=== PATIENT | male | born 1955 | race Caucasian/White ===

== ENCOUNTER → 2017-08-21 16:21 | Outpatient (CLI) | payer BC, SELFPAY ==
[2017-08-21 18:09] LABS: AST(SGOT) 25 U/L (15-37); Alanine Aminotransfer ALT/SGPT 45 U/L (16-61); Cholesterol 164 mg/dL (200); High Density Lipoprotein 42 mg/dL; Triglycerides 167 mg/dL; Very Low Density Lipoprotein 33 mg/dL (5-40)
== END ==
PROVIDERS: Family Provider Family Medicine; PCP Family Medicine; Visit Provider Family Medicine
DX: Z00.00 Encounter for general adult medical examination without abnormal findings (principal); E78.5 Hyperlipidemia, unspecified
CPT/HCPCS: 36415; 80061; 84153; 84450; 84460; G0103

== ENCOUNTER 2017-08-27 08:47 | Observation (INO) | payer BC, SELFPAY ==
[2017-08-27] VITALS (11 sets, daily range): BP systolic 127–191; BP diastolic 62–91; PULSE 45–56; RESP 12–19; TEMP 36.5–37.1; O2SAT 97–100; BMI 27.8; BMI 27.5
--- NOTE | 2017-08-27 08:52 | CT_ITS ---
STUDY: CTA CHEST REASON FOR EXAM: Male, 62 years old. 2 day history of shortness of breath and chest pain. Nausea. History of recent long distance travel. RADIATION DOSAGE (If Supplied By Facility): CTDIvol = ( 18.16 ) mGy, DLP = ( 579.07 ) mGycm TECHNIQUE: The examination was performed with the intravenous administration of 100 ml of Isovue 370 contrast material. Post-processing of the angiographic images was performed, with multiplanar reformation and 3D reconstruction. Individualized dose optimization techniques were used for this CT. COMPARISON: Comparison is made with prior chest radiograph done earlier in the day. FINDINGS: Normal enhancement of the main pulmonary artery and right and left pulmonary arteries. Normal enhancement of the bilateral peripheral pulmonary arteries. There is no demonstrated pulmonary embolism. Normal thoracic aorta and visualized great vessels. There is no demonstrated aortic dissection. Normal heart and pericardium. Normal mediastinum. Normal hilar regions. Normal visualized trachea and bronchi. The lungs are well expanded. Minimal degree of linear scarring in the posterior aspect of the left upper lobe. Normal pleura. Normal chest wall structures. There are degenerative changes of thoracic spine. Fatty infiltration of the liver. Small hiatal hernia. CT/CTA Chest W/WO Contrast IMPRESSION: Normal CTA chest examination, without a demonstrated pulmonary embolism or arterial dissection. Electronically Signed: Avelino Anna MD at 10:44 EDT Tel [phone], Service support ,
--- NOTE | 2017-08-27 08:53 | EKG12_ITS ---
Test Reason : CP Blood Pressure : / mmHG Vent. Rate : 052 BPM Atrial Rate : 052 BPM P-R Int : 176 ms QRS Dur : 120 ms QT Int : 418 ms P-R-T Axes : 019 -49 021 degrees QTc Int : 388 ms Sinus bradycardia Left anterior fascicular block Abnormal ECG Confirmed by YANA SMYTH, EDGAR ([id number]), managing editor CHACE DEL REAL ([id number] on 08/28/2017 12:59:13 PM Referred By: Noreen Katz Confirmed By:EDGAR MILLAN MD
--- NOTE | 2017-08-27 08:54 | ED.VISSUMM ---
- ER Visit Summary Date of Service: 08/27/17 Chief Complaint: Chest pain, lightheadedness History of Present Illness: The patient is a 62 M presents to the emergency department with 2 days of intermittent chest pain. Patient states he was in his normal state of health. He states that she woke from sleep with pain in the central chest that radiated to the right side. It seem to be worse when he would move. He cannot re-create the pain any other way. He states he has been having it intermittently and it will come on and last a few hours. It does not radiate to his neck or to his arm. Patient does have a history of prior DVT in his leg 2 years ago. He was on anticoagulants, but only for 3 months. He has not been taking them since. He does have a history of hypercholesterolemia and prior smoking. He denies any history of coronary vascular disease. He does admit to recent travel to [place], but denies any leg swelling. He denies any cough but has had some mild dyspnea. He denies any fevers or chills. Physical Examination: Vital signs reviewed General: Well-nourished, well-developed Head: Normocephalic, atraumatic Eyes: Pupils equal and reactive, extraocular muscles intact Neck, supple, no lymphadenopathy Heart: Regular rate and rhythm Respiratory: No distress, clear bilaterally Abdomen: Soft, nontender, nondistended, no peritoneal signs Back: Nontender Extremities: Nontender, no edema, no cords Skin: Normal color no rash Neuro: Alert and oriented, no focal or lateralizing deficits Test Results: [] Emergency Department Course and Treatment: The patient presents to the emergency department with substernal chest pain that radiates to the right side of his chest. It was not made worse with exertion but did have some components that were worsened with motion. He does have history of prior DVT and recent travel. Initial EKG does not show any acute ischemic change. Patient had no recurrence of pain while here. He was given aspirin. He was initially hypertensive with systolic of 210 on arrival, but even without intervention, his repeat blood pressure was down to the 160s. I did obtain a CTA of his chest given history which does not show any evidence of pulmonary embolus or aortic dissection. His cardiac enzymes are normal. Given the patient's age and cardiac sclerotic factors, I do feel that he would benefit from admission for cardiac rule out. Patient was discussed with the hospitalist will be admitted at this time. Treatment Plan: [] Disposition: Admission Impression: 1. Chest pain This note was generated with [employer] dictation software. It may contain incorrect words, spelling, and punctuation that were not noted in review of the chart prior to signing ED Disposition - Plan for ED Patient: Chief Complaint: Chest Pain Referrals: Noreen Katz MD [Primary Care Provider] -
--- NOTE | 2017-08-27 08:59 | RAD_ITS ---
STUDY: X-RAY CHEST REASON FOR EXAM: Male, 62 years old. 2 day history of chest pain with nausea and dizziness. TECHNIQUE: Single AP portable view of the chest. COMPARISON: None. FINDINGS: EKG electrodes are seen. The lungs are clear and expanded. There is no demonstrated pleural abnormality. Normal size heart. Normal mediastinum and tutu. Normal visualized pulmonary arteries. Normal visualized aortic arch and descending thoracic aorta. There are diffuse degenerative changes of the visualized thoracic spine. Normal visualized ribs, clavicles, and shoulders. There is no demonstrated abnormality of the visualized soft tissue structures of the upper abdomen. RAD/Chest 1 View (Portable) IMPRESSION: No acute abnormality is seen. Electronically Signed: Avelino Anna MD at 9:33 EDT Tel [phone], Service support ,
[2017-08-27 09:15] LABS: Absolute Lymphocyte Count 1.72 X10^3/ul (0.83-4.51); Absolute Neutrophil Count 2.9 X10^3/uL (2.0-7.7); Basophil# 0.02 X10^3/uL; Basophil% 0.4 % (0-1); Eosinophil# 0.12 X10^3/uL; Eosinophils% 2.4 % (0-5); Hematocrit 41.6 % (40-54); Hemoglobin 14.3 g/dl (13.0-16.5); Lymphocyte # 1.72 X10^3/ul (4.0); Lymphocyte % 33.7 % (19-41); Mean Corp Hgb Conc 34.4 g/gl (32-36); Mean Platelet Vol. 10.7 fl (6.2-12.0); Monocyte# 0.31 X10^3/uL; Monocyte% 6.1 % (0-10); Neutrophil # 2.93 X10^3/uL (2.7-7.7); Neutrophil % 57.4 % (47-70); POSITIVE COUNT NO; POSITIVE DIFFERENTIAL NO; POSITIVE MORPHOLOGY NO; Platelet Count 205 K/mm3 (150-450); RBC Distribution Width CV 13.4 % (11.6-14.6); RBC Distribution Width SD 43.8 fl (35.1-43.9); Red Blood Count 4.62 M/mm3 (4.6-6.2); White Blood Count 5.1 K/mm3 (4.4-11.0)
[2017-08-27] MEDS: Aspirin 81 MG TAB.CHEW 324 MG PO (09:19)
[2017-08-27] MEDS: Ondansetron 4 MG/2 ML Vial IV (09:20)
[2017-08-27] MEDS: 0.9% Normal Saline 1,000 ML 150 ML IV (09:32)
[2017-08-27 09:34] LABS: BUN 14 mg/dL (7-18); Creatinine, Serum 0.94 mg/dL (0.70-1.30); Estimated Creatinine Clearance 77.82 ml/min; Glucose 108 mg/dL (74-106)
[2017-08-27 09:35] LABS: Anion Gap 7 (5-15); BUN/Creat Ratio 14.9 RATIO (10-20); Calcium,Total 8.8 mg/dL (8.5-10.1); Chloride 107 mmol/L (98-107); EST Glomerular Filtration Rate 86 mL/min (>60); Est Glom Filt Rate - Afr Amer 105 mL/min (>60); Potassium 4.1 mmol/L (3.5-5.1); Sodium Level 139 mmol/L (136-145)
--- NOTE | 2017-08-27 11:11 | NURSING ---
Geetha notified patient may transfer to PCU.
--- NOTE | 2017-08-27 11:49 | EKG12_ITS ---
Test Reason : CP Blood Pressure : / mmHG Vent. Rate : 045 BPM Atrial Rate : 045 BPM P-R Int : 180 ms QRS Dur : 118 ms QT Int : 452 ms P-R-T Axes : 022 -47 012 degrees QTc Int : 390 ms Sinus bradycardia Left anterior fascicular block Abnormal ECG Confirmed by JFEF SMYTH, KATEY ([id number]), video effects editor CHACE DEL REAL ([id number]) on 09/04/2017 1:52:12 PM Referred By: Noreen Katz Confirmed By:KATEY AGUILAR MD
--- NOTE | 2017-08-27 11:51 | ECHOD_ITS ---
Reason For Study: CHEST PAIN Procedure This was a 2D Doppler, Color Flow transthoracic echocardiogram. Exam performed portable in patient room. Left Ventricle Normal size and thickness. The estimated ejection fraction is 65 %. Stage 1 diastolic dysfunction. No regional wall motion abnormalities noted. Right Ventricle Normal size and thickness. Normal systolic function. Atria Normal left atrium. Normal right atrium. Normal atrial septum. Bubble contrast study negative for right to left interatrial shunt. Mitral Valve The mitral valve is structurally normal. No prolapse or stenosis seen. Tricuspid Valve Normal tricuspid valve. Trivial tricuspid valve insufficiency. Right ventricular systolic pressure estimated to be 38 mmHg. Mild pulmonary hypertension. Aortic Valve Trisinus/trileaflet aortic valve. Normal aortic valve. Pulmonic Valve Normal pulmonic valve. Great Vessels Normal aortic root. Normal arch. Normal inferior vena cava. Inferior vena cava collapse with sniff. Pericardium/Pleural No pericardial effusion. Medication Performed a rapid injection of agitated mix of 9 cc saline and 1cc air to assess for atrial septal defect. MMode/2D Measurements & Calculations LVIDd: 4.8 cm IVSd: 1.2 cm Ao root diam: 3.4 cm LVIDs: 3.1 cm LVPWd: 1.2 cm LA dimension: 3.6 cm RVDd: 2.6 cm FS: 35.7 % LAV(MOD-bp): 65.3 ml LVAd ap4: 38.4 cm2 SV(MOD-sp4): 91.9 ml LAV(MOD-bp) Indexed: 33.2 ml/m2 EDV(MOD-sp4): 143.6 ml LAV(MOD-sp2): 67.6 ml EDV(sp4-el): 146.9 ml LAV(MOD-sp4): 62.5 ml LVAs ap4: 20.1 cm2 ESV(MOD-sp4): 51.7 ml ESV(sp4-el): 54.2 ml EF(MOD-sp4): 64.0 % EF(sp4-el): 63.1 % SV(sp4-el): 92.7 ml LA A4 area: 21.1 cm2 RA A4 area: 15.7 cm2 Time Measurements MV dec time: 0.22 sec Doppler Measurements & Calculations MV E max juan manuel: 89.4 cm/sec Lat Peak E' Juan Manuel: 12.5 cm/sec Med Peak E' Juan Manuel: 10.7 cm/sec MV A max juan manuel: 91.5 cm/sec E/E' lat: 7.2 E/E' med: 8.4 MV E/A: 0.98 Ao V2 max: 193.0 cm/sec LV V1 max: 123.9 cm/sec PA V2 max: 105.3 cm/sec Ao max P.9 mmHg LV V1 max P.1 mmHg TR max juan manuel: 287.3 cm/sec TR max P.0 mmHg Interpretation Summary The estimated ejection fraction is 65 %. Bubble contrast study negative for right to left interatrial shunt. Trivial tricuspid valve insufficiency. Right ventricular systolic pressure estimated to be 38 mmHg. Mild pulmonary hypertension. Compared to echo report dated 06/19/2014, no appreciable changes noted. Ordering Physician: Reta Branch Referring Physician: Noreen Katz Performed By: Vicky Wolff RDCS
--- NOTE | 2017-08-27 13:58 | HP.PCM_ITS ---
Problem List (1) Macular degeneration Status: Chronic (2) HLD (hyperlipidemia) Status: Chronic (3) Chest pain Status: Acute (4) GERD (gastroesophageal reflux disease) Status: Chronic History of Present Illness Date of Admission: 08/27/17 Chief Complaint: R side chest pain associated with lightheadedness, diaphoresis and nausea. The patient is a 62 year old M with a past medical history of hyperlipidemia, GERD and wet macular degeneration who presented to the Ed at [facility] on 08/27/17 c/o intermittent R side chest pain for the past few days. Prior to that he had occasional CP when out in the yard working and mowing grass. This morning he had chest pain at work and this was associated with lightheadedness, sweating and nausea. He felt as though he was going to pass out and asked a co-worker to help him to the nurse's office. He felt better when he arrived in the ED and laid down. The pain resolved after 2 and 1/2 hours. He recently flew to [facility] and he does have a hx of DVT while driving home from [place] few years ago so a CTA of the chest was done and it was negative for DVT. No recent medication changes. EKG in the ED showed SB with LAD. Vital signs at arrival to the emergency room were temperature 97.7, pulse rate 94, blood pressure 190/ 91, respiratory rate 18 and his oxygen saturation was 99%. CBC and BMP were unremarkable and the troponin was less than 0.015. He was given aspirin 324 mg in the emergency room and transferred to a monitored bed on PCU. He has had a stress in the past in 2012 and it was negative. There is no FH of CAD. He denies a hx of HTN. Past Medical History Past Medical History (Chronic Problems): Chronic Problems Macular degeneration (Chronic) HLD (hyperlipidemia) (Chronic) GERD (gastroesophageal reflux disease) (Chronic) Allergies shellfish derived Allergy (Verified 08/27/17 08:49) Other Home Medications: Ambulatory Orders Medication Instructions Recorded Multivitamins,Ther W-Minerals 1 tablet PO DAILY 06/21/13 [Multivitamin With Minerals] Rosuvastatin Calcium [Crestor] 5 mg PO DAILY 06/21/13 Surgical History: noncontributory Psychiatric History: No pertinent psych hx Lives: Spouse/ Significant Other Smoking Status: Former smoker - he quit over 40 years ago....he smoked a little as a teenager Alcohol: Occasional Drugs: None - *Family History Paternal History Items: Cancer - His father had lung cancer associated with his occupation, he was a non-smoker Maternal History Items: - - Mother had no significant medical history Review of Systems Constitutional: Denies: Chills, Fever, Weight Change Eyes: Reports: Vision Change HEENT: Denies: Head Aches, Sinus Congestion, Sinus Drainage Cardiovascular: Reports: Chest Pain, Light Headedness. Denies: Claudication, Edema, Orthopnea, Palpitations, Paroxysmal Noc. Dyspnea, Syncope Respiratory: Denies: Cough, Shortness of breath at rest, Sputum production Gastrointestinal: Denies: Abdominal Pain, Nausea, Vomiting Genitourinary: Denies: Dysuria Musculoskeletal: Denies: Joint Pain, Joint Tenderness Skin: Denies: Rash, Wounds Neurological: Denies: Numbness, Tingling, Focal weakness Psychiatric: Denies: Anxiety, Depression, Homicidal Ideations, Suicidal Ideations Endocrine: Denies: Change in Body Habitus Hematologic/ Lymphatic: Reports: Hx of blood clot - from a long car trip from [facility] to [place] VTE Information - Inpt Only VTE Present on Admission: No VTE Mechan Device Prophylaxis: Knee High HELEN Hose VTE Pharm Prophylaxis ordered?: Yes Patient Problems: Active and Suspected Problems Chest pain (Acute) Subjective: General: alert, oriented X3, cooperative, NAD HEENT: Atraumatic, normocephalic, PERRL, EOMI Oral: Dry mucosa. no mucosal lesions, unremarkable denitition Neck: No carotid bruits, carotids have brisk upstroke and good pulse volume, no JVD, no nodes, trachea midline, no nuchal rigidity Lungs: symmetric chest expansion, CTA, no rhonchi, no wheezes, no rales, not tachypneic, no conversational dyspnea, no accessory muscle use Heart: regular rhythm, bradycardic rate, normal S1S2, no ectopic activity, no MM, no gallop, no rub Abdomen: soft, NT, ND, normal BS's, no masses, no guarding with palpation Skin: no rashes, no breakdown Musculoskeletal: no muscle wasting, good strength throughout Neurologic: CN's II-XII grossly intake, no focal neurologic deficits Psych: appropriate, pleasant, normal affect - Physical Exam Vital Signs Temp Pulse Resp BP Pulse Ox 97.8 F 46 L 16 180/74 H 98 08/27/17 12:00 08/27/17 12:35 08/27/17 12:00 08/27/17 12:00 08/27/17 12:00 Oxygen Delivery Method Room Air Weight: 180 lb 15.992 oz Body Mass Index (BMI) 27.5 Laboratory Tests Past 24 Hrs 08/27/17 12:10 Troponin I < 0.015 Assessment/Plan All Active Problems Chest pain (Acute) Impressions 1. atypical chest pain 2. possible HTN - he has no personal hx but BP significantly elevated in the ED 3. Hyperlipidemia 4. Wet macular degeneration 5. Occasional GERD Admit to a monitored bed on PCU ASA 81 mg PO daily SL NTG 0.4 mg PRN chest pain Serial Cardiac Enzymes Stat EKG PRN CP Chest XRAY -no pleural effusions, minor vascular congestion or infiltrates Treadmill nuclear stress test in the AM if the cardiac enzymes are negative DVT prophylaxis ordered Echocardiogram to evaluate for LVH/diastolic dysfunction
[2017-08-27] MEDS: Enoxaparin 40 MG/0.4 ML Syringe SC (14:17)
[2017-08-27] MEDS: Lisinopril 10 MG Tablet PO (14:17)
[2017-08-27 16:40] LABS: Bacteria 0 SEEN /hpf (None Seen); Mucous, Urine 0 SEEN /hpf (<or=2+); Red Blood Cells-Urine 0 SEEN /hpf (0-5); White Blood Cells 0 SEEN /hpf (0-5)
[2017-08-27 16:56] LABS: Color, Urine Yellow (Yellow); Glucose, Dipstick Normal (Normal); Ketone-Dipstick Negative (Negative); Leukocyte Esterase-Dipstick Negative /ul (Negative); Nitrite-Dipstick Negative (Negative); Occult Blood-Urine Negative /ul (Negative); Protein-Dipstick Negative (Negative); Urine Bilirubin Dipstick Negative (Negative); Urine Clarity Clear (Clear); Urine Urobilinogen Normal (Normal); Urine pH 6.5 (5.0 - 8.0)
[2017-08-27 17:06] LABS: Squamous Epithelial Cells - UA 0-5 SEEN /hpf (0-5)
[2017-08-27] MEDS: Atorvastatin Calcium 40 MG Tablet PO (22:53)
[2017-08-27] MEDS: Famotidine 20 MG Tablet PO (22:53)
[2017-08-28] VITALS (7 sets, daily range): BP systolic 122–137; BP diastolic 62–69; PULSE 46–57; RESP 11–18; TEMP 36.4–36.7; O2SAT 96–97
[2017-08-28] MEDS: 0.9% NaCl Peripheral Flush Adult/Peds IV (04:53)
--- NOTE | 2017-08-28 05:00 | EKG12_ITS ---
Test Reason : AM EKG Blood Pressure : / mmHG Vent. Rate : 057 BPM Atrial Rate : 057 BPM P-R Int : 174 ms QRS Dur : 114 ms QT Int : 420 ms P-R-T Axes : 007 -49 017 degrees QTc Int : 408 ms Sinus bradycardia Left anterior fascicular block Abnormal ECG When compared with ECG of 27-AUG-2017 11:48, MANUAL COMPARISON REQUIRED, DATA IS UNCONFIRMED Confirmed by VIRGILIO HATCH ([id number]), managing editor CHACE DEL REAL ([id number]) on 09/01/2017 2:01:42 PM Referred By: DR ROGERS Confirmed By:VIRGILIO HATCH
[2017-08-28] MEDS: Lisinopril 10 MG Tablet PO (05:16)
[2017-08-28] MEDS: Aspirin E.C. 81 MG Tablet PO (05:16)
[2017-08-28 05:31] LABS: Absolute Lymphocyte Count 1.61 X10^3/ul (0.83-4.51); Basophil# 0.03 X10^3/uL; Basophil% 0.5 % (0-1); Eosinophil# 0.29 X10^3/uL; Eosinophils% 4.4 % (0-5); Hematocrit 40.9 % (40-54); Hemoglobin 13.9 g/dl (13.0-16.5); Lymphocyte # 1.61 X10^3/ul (4.0); Lymphocyte % 24.5 % (19-41); Mean Corpuscular Hgb 30.6 pg (27.0-32.0); Mean Corpuscular Volume 90.1 fL (80-94); Mean Platelet Vol. 10.8 fl (6.2-12.0); Monocyte# 0.58 X10^3/uL; Monocyte% 8.8 % (0-10); Neutrophil # 4.04 X10^3/uL (2.7-7.7); Neutrophil % 61.6 % (47-70); Platelet Count 213 K/mm3 (150-450); RBC Distribution Width CV 13.6 % (11.6-14.6); RBC Distribution Width SD 44.7 fl (35.1-43.9); Red Blood Count 4.54 M/mm3 (4.6-6.2); White Blood Count 6.6 K/mm3 (4.4-11.0)
[2017-08-28 05:32] LABS: POSITIVE COUNT NO; POSITIVE DIFFERENTIAL NO
[2017-08-28 05:33] LABS: POSITIVE MORPHOLOGY NO
[2017-08-28 05:44] LABS: Partial Thromboplast Time 26.5 Seconds (24.1-36.2); Prothrombin Time (Protime)PT. 13.3 SECONDS (11.7-14.9)
[2017-08-28 06:03] LABS: Anion Gap 5 (5-15); BUN 13 mg/dL (7-18); BUN/Creat Ratio 13.1 RATIO (10-20); Calcium,Total 8.5 mg/dL (8.5-10.1); Chloride 108 mmol/L (98-107); Cholesterol 156 mg/dL (200); Creatinine, Serum 0.99 mg/dL (0.70-1.30); EST Glomerular Filtration Rate 81 mL/min (>60); Est Glom Filt Rate - Afr Amer 98 mL/min (>60); Estimated Creatinine Clearance 73.89 ml/min; Glucose 95 mg/dL (74-106); High Density Lipoprotein 39 mg/dL; Potassium 3.9 mmol/L (3.5-5.1); Sodium Level 142 mmol/L (136-145); Thyroid Stim Hormone (TSH) 2.27 uIU/mL (0.358-3.74); Triglycerides 163 mg/dL; Very Low Density Lipoprotein 33 mg/dL (5-40)
--- NOTE | 2017-08-28 07:36 | STRESSREP ---
Stress Test Report Exercise myocardial perfusion stress test. 62-year-old man with a history of atypical chest pain. Medications aspirin Lipitor Zestril. Stress protocol: Resting EKG demonstrates normal sinus rhythm with rate of 55 bpm normal intervals and noted resting blood pressure is 150/78 mmHg. The patient exercised according to regular Angel protocol for total duration of 9 minutes and 31 seconds. The maximum heart rate attained was 133 bpm which was 84% of maximum predicted heart rate the maximum workload was 10.9 metabolic equivalents. The patient maintained sinus rhythm throughout the recording. At rest there were no ST or T-wave changes noted suggest ischemia at peak exercise upsloping ST changes only were noted. Occasional premature ventricular complex was noted. No clinical angina was noted the patient experienced occasional sharp chest discomfort. Resting blood pressure is 150/78 with a peak blood pressure 172/82. No clinical angina was noted. Myocardial perfusion protocol. 11.3 mCi of technetium 99m sestamibi was injected. The patient then exercised for 9-1/2 minutes attaining 10.9 minute metabolic equivalents. At peak exercise 33.1 mCi of technetium 99m sestamibi was injected stress images were obtained stress and rest images were reconstructed and compared in the short axis vertical long and horizontal long axis. Gated images were also obtained pre- Perfusion SPECT analysis. Review of the stress images demonstrate normal uptake of tracer noted in all areas of the myocardium. The resting images similarly demonstrate normal uptake of tracer noted in all areas of the myocardium. No areas of reversibility are noted suggest ischemia and no previous infarct is noted. Gated SPECT analysis. The gated ejection fraction is noted to be 62%. Conclusion: Exercise myocardial perfusion stress test with no evidence of ischemia at a high workload. Preserved ejection fraction. No clinical angina noted.
[2017-08-28] MEDS: Famotidine 20 MG Tablet PO (08:33)
[2017-08-28] MEDS: Multivitamins,Ther W-Minerals Tablet 1 TABLET PO (08:33)
--- NOTE | 2017-08-28 10:35 | PCM.DC ---
- Discharge Diagnoses Current Active Problems: Current Active and Chronic Problems Macular degeneration (Chronic) HLD (hyperlipidemia) (Chronic) Chest pain (Acute) GERD (gastroesophageal reflux disease) (Chronic) You will use the following diet at home:: Other - Low-fat/low-cholesterol. Discharge Activity: Return to Normal Activity Call your doctor if you observe: Shortness of breath, Dizziness, Fainting spells, Chest pain Additional Instructions: Your chest pain was not found to be related to your heart. You were started on a medication for your blood pressure called lisinopril which you will take daily. Recommend monitoring your blood pressure daily at home and documenting these findings. Bring blood pressure readings to primary care physician at follow-up appointment. You were also given a prescription for acid reflux to see if this improves your symptoms. Allergies/Adverse Reactions: Allergies shellfish derived Allergy (Verified 08/27/17 08:49) Other Medications to take at Discharge Multivitamins,Ther W-Minerals [Multivitamin With Minerals] 1 tablet PO DAILY 06/21/13 Rosuvastatin Calcium [Crestor] 5 mg PO DAILY 06/21/13 Famotidine [Pepcid] 20 mg PO BID #60 tab 08/28/17 Lisinopril [Zestril] 10 mg PO DAILY #30 tab 08/28/17 The following prescriptions were given: Lisinopril [Zestril] 10 mg PO DAILY #30 tab Famotidine [Pepcid] 20 mg PO BID #60 tab Primary Care Physician: Noreen Katz MD [Primary Care Provider] - Please follow up with your Primary Care Physician in: 1 Week Test Results: Test results from this visit will be discussed in further detail at your follow-up appointment, if applicable. Proposed Discharge Date: 08/28/17
--- NOTE | 2017-08-28 10:39 | DCINST_ITS ---
- Discharge Diagnoses Current Active Problems: Current Active and Chronic Problems Macular degeneration (Chronic) HLD (hyperlipidemia) (Chronic) Chest pain (Acute) GERD (gastroesophageal reflux disease) (Chronic) You will use the following diet at home:: Other - Low-fat/low-cholesterol. Discharge Activity: Return to Normal Activity Call your doctor if you observe: Shortness of breath, Dizziness, Fainting spells , Chest pain Additional Instructions: Your chest pain was not found to be related to your heart. You were started on a medication for your blood pressure called lisinopril which you will take daily. Recommend monitoring your blood pressure daily at home and documenting these findings. Bring blood pressure readings to primary care physician at follow-up appointment. You were also given a prescription for acid reflux to see if this improves your symptoms. Allergies/Adverse Reactions: Allergies shellfish derived Allergy (Verified 08/27/17 08:49) Other Medications to take at Discharge Multivitamins,Ther W-Minerals [Multivitamin With Minerals] 1 tablet PO DAILY Rosuvastatin Calcium [Crestor] 5 mg PO DAILY 06/21/13 Famotidine [Pepcid] 20 mg PO BID #60 tab 08/28/17 Lisinopril [Zestril] 10 mg PO DAILY #30 tab 08/28/17 The following prescriptions were given: Lisinopril [Zestril] 10 mg PO DAILY #30 tab Famotidine [Pepcid] 20 mg PO BID #60 tab Primary Care Physician: Noreen Katz MD [Primary Care Provider] - Please follow up with your Primary Care Physician in: 1 Week Test Results: Test results from this visit will be discussed in further detail at your follow- up appointment, if applicable. Proposed Discharge Date: 08/28/17
--- NOTE | 2017-08-28 10:40 | PCM.DC.SUM ---
Discharge Date and Diagnosis Date of Admission: 08/27/17 Date of Discharge: 08/28/17 - Primary Discharge Diagnosis Active and Suspected Problems 1. Chest pain- ACS ruled out 2. Hypertension - Secondary Discharge Diagnosis Chronic Problems Macular degeneration (Chronic) HLD (hyperlipidemia) (Chronic) GERD (gastroesophageal reflux disease) (Chronic) Hospital Course and Treatment Imaging Results: Diagnostic Data Chest CTA 08/27/17 08:52 IMPRESSION: Normal CTA chest examination, without a demonstrated pulmonary embolism or arterial dissection. Electronically Signed: Avelino Anna MD at 10:44 EDT Tel [phone], Service support , Chest X-Ray 08/27/17 08:59 IMPRESSION: No acute abnormality is seen. Electronically Signed: Avelino Anna MD at 9:33 EDT Tel [phone], Service support , Operations: None Procedures: 2-D Echocardiogram, Stress test Summary of Care Provided: The patient is a 62 year old M admitted 08/27/2017 due to chest pain. He has a past medical history of hyperlipidemia, macular degeneration, GERD. CTA of chest negative for PE and dissection. Troponin negative. Patient underwent nuclear stress test which was negative for ischemia. Lab work unremarkable. Patient denies further chest pain during admission. Blood pressure noted to be elevated. Patient was started on lisinopril 10 mg daily with improvement in blood pressure. Patient does report occasional GERD. He was started on famotidine 20 mg twice daily to assess if this improves his symptoms. Patient recommended to check blood pressure daily at home and document findings which she will report to primary care physician. Echocardiogram completed and all reviewed prior to discharge. Patient is stable for discharge and will follow up with primary care physician in 1 week. Patient seen and examined prior to discharge. Alert, oriented, no acute distress. Denies further chest pain. Denies shortness of breath, palpitations. Heart rate regular rhythm, mild bradycardia. Lungs clear. Abdomen soft, nontender. Neuro grossly intact. Vital signs stable. This patient was seen by RUDY Hancock under the supervision of Dr. Branch. Discharge Diet: Low fat/ Low Cholesterol Discharge Activity: Return to Normal Activity Call your doctor if you observe: Shortness of breath, Dizziness, Fainting spells, Chest pain Home Medications: Medications to take at Discharge Multivitamins,Ther W-Minerals [Multivitamin With Minerals] 1 tablet PO DAILY 06/21/13 Rosuvastatin Calcium [Crestor] 5 mg PO DAILY 06/21/13 Famotidine [Pepcid] 20 mg PO BID #60 tab 08/28/17 Lisinopril [Zestril] 10 mg PO DAILY #30 tab 08/28/17 Following Prescrptions Were Given to Patient: Lisinopril [Zestril] 10 mg PO DAILY #30 tab Famotidine [Pepcid] 20 mg PO BID #60 tab Primary Care Physician: Noreen Katz MD [Primary Care Provider] - Please follow up with your Primary Care Physician in: 1 Week Disposition: Home Minutes spent on discharge:: 35 Patient Condition:: Stable Medical Necessity - Tobacco Use Smoking Status: Former smoker - he quit over 40 years ago....he smoked a little as a teenager Meaningful Use Info Meaningful Use Diagnoses (Choose all that apply): None applicable
--- NOTE | 2017-08-28 10:46 | DS.PCM_ITS ---
Discharge Date and Diagnosis Date of Admission: 08/27/17 Date of Discharge: 08/28/17 - Primary Discharge Diagnosis Active and Suspected Problems 1. Chest pain- ACS ruled out 2. Hypertension - Secondary Discharge Diagnosis Chronic Problems Macular degeneration (Chronic) HLD (hyperlipidemia) (Chronic) GERD (gastroesophageal reflux disease) (Chronic) Hospital Course and Treatment Imaging Results: Diagnostic Data Chest CTA 08/27/17 08:52 IMPRESSION: Normal CTA chest examination, without a demonstrated pulmonary embolism or arterial dissection. Electronically Signed: Avelino Anna MD at 10:44 EDT Tel [phone], Service support , Chest X-Ray 08/27/17 08:59 IMPRESSION: No acute abnormality is seen. Electronically Signed: Avelino Anna MD at 9:33 EDT Tel [phone], Service support , Operations: None Procedures: 2-D Echocardiogram, Stress test Summary of Care Provided: The patient is a 62 year old M admitted 08/27/2017 due to chest pain. He has a past medical history of hyperlipidemia, macular degeneration, GERD. CTA of chest negative for PE and dissection. Troponin negative. Patient underwent nuclear stress test which was negative for ischemia. Lab work unremarkable. Patient denies further chest pain during admission. Blood pressure noted to be elevated. Patient was started on lisinopril 10 mg daily with improvement in blood pressure. Patient does report occasional GERD. He was started on famotidine 20 mg twice daily to assess if this improves his symptoms. Patient recommended to check blood pressure daily at home and document findings which she will report to primary care physician. Echocardiogram completed and all reviewed prior to discharge. Patient is stable for discharge and will follow up with primary care physician in 1 week. Patient seen and examined prior to discharge. Alert, oriented, no acute distress. Denies further chest pain. Denies shortness of breath, palpitations. Heart rate regular rhythm, mild bradycardia. Lungs clear. Abdomen soft, nontender. Neuro grossly intact. Vital signs stable. This patient was seen by RUDY Hancock under the supervision of Dr. Branch. Discharge Diet: Low fat/ Low Cholesterol Discharge Activity: Return to Normal Activity Call your doctor if you observe: Shortness of breath, Dizziness, Fainting spells , Chest pain Home Medications: Medications to take at Discharge Multivitamins,Ther W-Minerals [Multivitamin With Minerals] 1 tablet PO DAILY Rosuvastatin Calcium [Crestor] 5 mg PO DAILY 06/21/13 Famotidine [Pepcid] 20 mg PO BID #60 tab 08/28/17 Lisinopril [Zestril] 10 mg PO DAILY #30 tab 08/28/17 Following Prescrptions Were Given to Patient: Lisinopril [Zestril] 10 mg PO DAILY #30 tab Famotidine [Pepcid] 20 mg PO BID #60 tab Primary Care Physician: Noreen Katz MD [Primary Care Provider] - Please follow up with your Primary Care Physician in: 1 Week Disposition: Home Minutes spent on discharge:: 35 Patient Condition:: Stable Medical Necessity - Tobacco Use Smoking Status: Former smoker - he quit over 40 years ago....he smoked a little as a teenager Meaningful Use Info Meaningful Use Diagnoses (Choose all that apply): None applicable
== END 2017-08-28 13:15 | disposition home or self-care (01) ==
LOC: ED 09:41 → PCU 11:03
PROVIDERS: Admitting Provider Internal Medicine; Emergency Provider Emergency Medicine; Family Provider Family Medicine; PCP Family Medicine; Visit Provider Internal Medicine
DX: R07.89 Other chest pain (principal); R42 Dizziness and giddiness; Z86.718 Personal history of other venous thrombosis and embolism; Z87.891 Personal history of nicotine dependence; E78.5 Hyperlipidemia, unspecified; H35.30 Unspecified macular degeneration; K21.9 Gastro-esophageal reflux disease without esophagitis; R00.1 Bradycardia, unspecified
CPT/HCPCS: 36415; 71045; 71275; 78452; 80048; 80061; 81001; 84443; 84484; 85025; 85610; 85730; 87086; 87088; 93005; 93017; 93306; 96361; 96372; 96374; 99218; 99285; A9500; J7030; Q9967; A4216; G0378; J2405

== ENCOUNTER 2018-03-14 16:24 | Emergency (ER) | payer BC, SELFPAY ==
[2018-03-14 16:25] VITALS: BP 152/93; PULSE 77; RESP 16; TEMP 37.2; O2SAT 99; BMI 29.0
--- NOTE | 2018-03-14 16:33 | RAD_ITS ---
STUDY: X-RAY - THORACIC SPINE REASON FOR EXAM: Male, 62 years old. Pain. TECHNIQUE: 3 view(s) of the thoracic spine were obtained. COMPARISON: None. FINDINGS: Normal kyphosis of the thoracic spine. There is no substantial scoliosis. There is multilevel endplate spondylosis of the thoracic vertebrae. There is multilevel disc space narrowing of the thoracic spine. The soft tissue structures are unremarkable. RAD/Thoracic Spine 3 Views IMPRESSION: Degenerative changes. Electronically Signed: Kassandra Morris MD at 18:27 EST Tel , Service support ,
--- NOTE | 2018-03-14 16:33 | RAD_ITS ---
STUDY: X-RAY - RIGHT SHOULDER REASON FOR EXAM: Male, 62 years old. Pain x1 week, no injury TECHNIQUE: 4 view(s) of the shoulder. COMPARISON: None. FINDINGS: Normal glenohumeral articulation. Normal acromioclavicular joint. Normal acromion. Normal humeral head and visualized proximal humerus. The soft tissue structures are unremarkable. Normal visualized pulmonary apex. RAD/Shoulder min 2 Views IMPRESSION: Normal x-ray examination of the shoulder. Electronically Signed: Tejas Kitchen MD at 18:36 EST , Service support ,
--- NOTE | 2018-03-14 16:36 | EKG12_ITS ---
Test Reason : SHOULDER PAIN Blood Pressure : / mmHG Vent. Rate : 064 BPM Atrial Rate : 054 BPM P-R Int : 000 ms QRS Dur : 122 ms QT Int : 390 ms P-R-T Axes : 000 -60 068 degrees QTc Int : 402 ms Junctional rhythm Left anterior fascicular block Abnormal ECG Confirmed by YANA SMYTH, EDGAR ([id number]), video tape editor CHACE DEL REAL ([id number]) on 03/17/2018 1:41:36 PM Referred By: SANIA Confirmed By:EDGAR MILLAN MD
--- NOTE | 2018-03-14 16:41 | ED.VISSUMM ---
- ER Visit Summary Date of Service: 03/14/18 Chief Complaint: Back pain History of Present Illness: The patient is a 62 M presenting with back pain. He states that this started 1 week ago. He does not recall anything that caused his symptoms. He denies any heavy lifting or trauma. He states it is worsened with laying down and improved with walking. He has right posterior shoulder pain and diffuse back pain. He has been able to ambulate. He denies numbness or weakness. Denies bowel or bladder incontinence. Denies fever. He denies chest pain or shortness of breath. Denies lightheadedness or syncope. Denies abdominal pain. Denies nausea, vomiting, diarrhea. Denies other complaints. Physical Examination: Vitals are stable. Patient is afebrile. Alert no acute distress. HEENT exam is unremarkable. Neck is nontender Lungs are clear and equal bilaterally. Heart is regular rate and rhythm. Abdomen is soft nontender nondistended. Back: Bilateral paraspinal thoracic muscle tenderness with no midline tenderness Extremities posterior shoulder tenderness with active full range of motion Skin is warm and dry. No rash No focal neurologic deficit. Normal strength and sensation Remainder of exam is unremarkable. Emergency Department Course and Treatment: Patient given morphine, Zofran IV. EKG sinus rate of 64. Chest x-ray showed no acute process. CBC, chemistries unremarkable. Troponin is negative. D-dimer negative. Thoracic spine and right shoulder x-rays are unremarkable. Patient is feeling much improved on reevaluation. He is advised to follow-up with his primary care physician. Advised return to ED if worsening complaints. Disposition: Discharge home Impression: Back pain This note was generated with [employer] dictation software. It may contain incorrect words, spelling, and punctuation that were not noted in review of the chart prior to signing ED Disposition - Plan for ED Patient: Referrals: Noreen Katz MD [Primary Care Provider] -
[2018-03-14] MEDS: Morphine 4 MG/ML Syringe IV (16:47)
[2018-03-14] MEDS: Ondansetron 4 MG/2 ML Vial IV (16:47)
--- NOTE | 2018-03-14 16:53 | RAD_ITS ---
STUDY: X-RAY CHEST REASON FOR EXAM: Male, 62 years old. Back pain. TECHNIQUE: Single frontal view of the chest. COMPARISON: August 27, 2017 FINDINGS: The lungs are clear and expanded. There is no demonstrated pleural abnormality. Normal size heart. Normal mediastinum and tutu. Normal visualized pulmonary arteries. Normal visualized aortic arch and descending thoracic aorta. Normal visualized thoracic spine. Normal visualized ribs, clavicles, and shoulders. There is no demonstrated abnormality of the visualized soft tissue structures of the upper abdomen. RAD/Chest 1 View IMPRESSION: Normal x-ray examination of the chest. Electronically Signed: Kassandra Morris MD at 18:26 EST Tel , Service support ,
[2018-03-14 16:58] LABS: Absolute Lymphocyte Count 2.28 X10^3/ul (0.83-4.51); Absolute Neutrophil Count 4.5 X10^3/uL (2.0-7.7); Basophil# 0.04 X10^3/uL; Basophil% 0.5 % (0-1); Eosinophil# 0.18 X10^3/uL; Eosinophils% 2.4 % (0-5); Hematocrit 43.2 % (40-54); Hemoglobin 14.6 g/dl (13.0-16.5); Lymphocyte # 2.28 X10^3/ul (4.0); Lymphocyte % 29.8 % (19-41); Mean Corp Hgb Conc 33.8 g/gl (32-36); Mean Corpuscular Hgb 30.5 pg (27.0-32.0); Mean Corpuscular Volume 90.2 fL (80-94); Mean Platelet Vol. 11.1 fl (6.2-12.0); Monocyte# 0.64 X10^3/uL; Monocyte% 8.4 % (0-10); Neutrophil % 58.8 % (47-70); Platelet Count 216 K/mm3 (150-450); RBC Distribution Width CV 13.3 % (11.6-14.6); Red Blood Count 4.79 M/mm3 (4.6-6.2); White Blood Count 7.7 K/mm3 (4.4-11.0)
[2018-03-14 16:59] LABS: POSITIVE COUNT NO; POSITIVE DIFFERENTIAL NO; POSITIVE MORPHOLOGY NO
[2018-03-14 17:16] LABS: Anion Gap 9 (5-15); BUN 13 mg/dL (7-18); BUN/Creat Ratio 13.8 RATIO (10-20); Calcium,Total 8.9 mg/dL (8.5-10.1); Chloride 105 mmol/L (98-107); Creatinine, Serum 0.94 mg/dL (0.70-1.30); EST Glomerular Filtration Rate 86 mL/min (>60); Est Glom Filt Rate - Afr Amer 104 mL/min (>60); Estimated Creatinine Clearance 72.59 ml/min; Glucose 105 mg/dL (74-106); Potassium 3.7 mmol/L (3.5-5.1); Sodium Level 141 mmol/L (136-145)
[2018-03-14 17:53] VITALS: BP 154/76; PULSE 76; RESP 16
--- NOTE | 2018-03-14 18:59 | DCINST.ED_ITS ---
ED Disposition - Plan for ED Patient: Instructions: ED Neck Back Pain General Prescriptions: Hydrocodone Bitart/Apap 5-325 [[place] 5MG-325MG] 1 tablet PO Q6H PRN PRN 3 Days #6 tablet PRN Reason: Pain Referrals: Noreen Katz MD [Primary Care Provider] -
[2018-03-14 19:11] VITALS: BP 152/70; PULSE 50; RESP 18; O2SAT 99
== END 2018-03-14 19:13 | disposition home or self-care (01) ==
PROVIDERS: Emergency Provider Emergency Medicine; Family Provider Family Medicine; PCP Family Medicine
DX: M54.9 Dorsalgia, unspecified (principal); M25.511 Pain in right shoulder; Z79.899 Other long term (current) drug therapy
CPT/HCPCS: 71045; 72072; 73030; 80048; 84484; 85025; 85379; 93005; 96374; 96375; 99283; A4216; J2405

== ENCOUNTER → 2018-08-27 15:38 | Outpatient (CLI) | payer BC, SELFPAY ==
[2018-08-27 17:28] LABS: AST(SGOT) 20 U/L (15-37); Alanine Aminotransfer ALT/SGPT 38 U/L (16-61); Cholesterol 174 mg/dL (200); High Density Lipoprotein 46 mg/dL; Triglycerides 212 mg/dL; Very Low Density Lipoprotein 42 mg/dL (5-40)
== END ==
PROVIDERS: Family Provider Family Medicine; PCP Family Medicine; Referring Provider Family Medicine; Visit Provider Family Medicine
DX: E78.5 Hyperlipidemia, unspecified (principal)
CPT/HCPCS: 36415; 80061; 84450; 84460

== ENCOUNTER → 2019-03-01 11:31 | Outpatient (CLI) | payer BC, SELFPAY ==
[2019-03-01 14:04] LABS: Anion Gap 5 (5-15); BUN 13 mg/dL (7-18); BUN/Creat Ratio 14.5 RATIO (10-20); Calcium,Total 8.9 mg/dL (8.5-10.1); Chloride 107 mmol/L (98-107); EST Glomerular Filtration Rate 91 mL/min (>60); Est Glom Filt Rate - Afr Amer 110 mL/min (>60); Glucose 100 mg/dL (74-106); Potassium 4.2 mmol/L (3.5-5.1); Sodium Level 138 mmol/L (136-145)
== END ==
PROVIDERS: PCP Family Medicine; Visit Provider Family Medicine
DX: I10 Essential (primary) hypertension (principal)
CPT/HCPCS: 36415; 80048

== ENCOUNTER 2019-07-19 12:47 | Emergency (ER) | payer BC, SELFPAY ==
[2019-07-19 12:48] VITALS: BP 128/63; PULSE 76; RESP 18; TEMP 36.8; O2SAT 98; BMI 28.5
[2019-07-19] MEDS: Diphth,Pertuss(Acell),Tet Vac 0.5 ML Vial IM (13:32)
--- NOTE | 2019-07-19 13:45 | RAD_ITS ---
STUDY: X-RAY - LEFT HAND, ATTENTION THIRD FINGER REASON FOR EXAM: Male, 64 years old. DRILL BIT THROUGH THE 3RD DIGIT TECHNIQUE: 3 view(s) of the finger were obtained. COMPARISON: None. FINDINGS: Normal metacarpal head. Normal metacarpophalangeal joint. Normal proximal phalanx. Normal middle phalanx. Normal distal phalanx. Normal proximal interphalangeal joint. Normal distal interphalangeal joint. The metallic drill bit is seen within the ventral soft tissues underlying the midportion of the distal phalanx of the third digit. RAD/Finger(s) Min 2 Views IMPRESSION: The metallic drill bit is within the soft tissues along the ventral aspect of the midportion of the distal phalanx of the third digit. No bony abnormality is seen. Electronically Signed: Avelino Anna, at 14:03 EDT , Service support ,
--- NOTE | 2019-07-19 14:02 | ED.DCSUM_ITS ---
History of Present Illness Chief Complaint: Wound Informant: Patient Occurred: Today - jpta Mechanism/Context: Injury Context: Sudden Onset Timing: Continuous Quality of Pain: - - sore Location: left long finger Current Severity: Moderate Maximum Severity: Moderate Worsened by: moving FB and finger Relieved by: remaining still Associated Symptoms: Loss of Funtion. Negative for: Parasthesia, Weakness Narrative: Patient was trying to drill a board that he was holding up with his left hand, he is right-hand dominant, and the drill bit slipped and went through his left long finger. He got it out of the shock, and was only able to pull it out a little and presents with the drill bit still in his finger. Tetanus Immunization: >10 years - Past Medical History (1) Hypertension Status: Chronic (2) GERD (gastroesophageal reflux disease) Status: Chronic (3) HLD (hyperlipidemia) Status: Chronic Past Medical History - Allergies and Home Meds Allergies/Adverse Reactions: Allergies shellfish derived Allergy (Verified 07/19/19 12:50) Other Primary Care Physician: Noreen Katz MD [Primary Care Provider] - Surgical History: noncontributory Lives: Spouse/ Significant Other Smoking Status: Former smoker - Family History Paternal Family History: Reports: Cancer - His father had lung cancer associated with his occupation, he was a non-smoker Maternal Family History: Reports: - - Mother had no significant medical history Review of Systems General: Denies: Chills, Fever, Sweats Musculoskeletal: Reports: Extremity Pain Skin: Reports: Wounds Neurological: Denies: Headache, Weakness, Numbness Physical Exam Vital Signs/Narrative: Vital Signs Temp Pulse Resp BP Pulse Ox 07/19/19 12:48 98.2 F 76 18 128/63 H 98 General: Well nourished, Well developed, - - nad Head: Normocephalic, Atraumatic Extremeties: Patient is able to flex at the DIP joint of the left long finger, limited due to pain and swelling. No other injuries other than the puncture wound listed below. Skin: Normal color, Trauma - Drillbit stuck in the patient's distal phalanx of the left long finger, fairly volar, and from the radial aspect, the tip of the bit is seen through to the other side. No nail injury or subungual hematoma. Minimal bleeding. Neurological: Alert, Oriented x3, Cranial nerves II-XII grossly intact, Normal Strength, Normal Sensation, Normal Gait Psychological: Normal affect, Normal Mood Diagnostic/Tx/Re-eval - Medical Decision Making On my interpretation, 3 view x-ray of the left long finger shows foreign body embedded volar to and not involving the bone. I do not think a repeat x-ray is necessary after removing the drill bit which appears to be intact. His finger was soaked in chlorhexidine and saline, and afterwards dressed with bacitracin, he will be placed on Duricef for infection prophylaxis, his tetanus was updated. Discharged in stable condition, discussed reasons to return follow-up. Procedures Procedure(s): Digital block--after isopropanol prep, with dorsal approach near the MCPJ of the affected finger, total of 8 cc of 1% plain lidocaine was injected with good anesthesia and no complications or arterial puncture. Foreign body removal--drill bit was rotated out of the finger soft tissue manually with my fingers. The patient's finger was soaked in saline and chlorhexidine afterwards. No complications and tolerated well. ED Disposition - Plan for ED Patient: Disposition: Home or Assisted Living Diagnosis: Puncture wound of left middle finger with foreign body without damage to nail, Tetanus-diphtheria (Td) vaccination Instructions: ED Wound Puncture General Prescriptions: Cefadroxil Hydrate [Duricef] 500 mg PO BID 7 Days #14 cap Transmission Status: Pending to [facility]/pharmacy #[id number] Referrals: Noreen Katz MD [Primary Care Provider] - As Needed
[2019-07-19] MEDS: Cefadroxil 500 MG CAPSULE PO (14:30)
[2019-07-19 14:37] VITALS: RESP 16
== END 2019-07-19 14:38 | disposition home or self-care (01) ==
LOC: ED 14:26
PROVIDERS: Emergency Provider Emergency Medicine; PCP Family Medicine
DX: S61.233A Puncture wound without foreign body of left middle finger without damage to nail, initial encounter (principal); Z23 Encounter for immunization; W29.8XXA Contact with other powered hand tools and household machinery, initial encounter; Y93.9 Activity, unspecified; Y92.9 Unspecified place or not applicable; I10 Essential (primary) hypertension; K21.9 Gastro-esophageal reflux disease without esophagitis; E78.5 Hyperlipidemia, unspecified; Z79.899 Other long term (current) drug therapy; Z87.891 Personal history of nicotine dependence
CPT/HCPCS: 73140; 90471; 90715; 99283

== ENCOUNTER → 2019-08-30 10:25 | Outpatient (CLI) | payer BC, SELFPAY ==
[2019-08-30 12:39] LABS: AST(SGOT) 20 U/L (15-37); Alanine Aminotransfer ALT/SGPT 30 U/L (16-61); Anion Gap 3 (5-15); BUN 11 mg/dL (7-18); BUN/Creat Ratio 13.1 RATIO (10-20); Chloride 105 mmol/L (98-107); Cholesterol 175 mg/dL (200); Creatinine, Serum 0.84 mg/dL (0.70-1.30); EST Glomerular Filtration Rate 97 mL/min (>60); Est Glom Filt Rate - Afr Amer 118 mL/min (>60); Glucose 113 mg/dL (74-106); High Density Lipoprotein 45 mg/dL; PSA,Total - Annual Screen 2.24 ng/mL (0.00-4.00); Potassium 4.4 mmol/L (3.5-5.1); Sodium Level 137 mmol/L (136-145); Triglycerides 156 mg/dL; Very Low Density Lipoprotein 31 mg/dL (5-40)
== END ==
PROVIDERS: PCP Family Medicine; Referring Provider Family Medicine; Visit Provider Family Medicine
DX: Z00.00 Encounter for general adult medical examination without abnormal findings (principal); Z12.5 Encounter for screening for malignant neoplasm of prostate; E78.5 Hyperlipidemia, unspecified; I10 Essential (primary) hypertension
CPT/HCPCS: 36415; 80048; 80061; 84153; 84450; 84460; G0103

== ENCOUNTER → 2020-02-27 10:34 | Outpatient (CLI) | payer BC, SELFPAY ==
[2020-02-27 13:06] LABS: AST(SGOT) 22 U/L (15-37); Alanine Aminotransfer ALT/SGPT 48 U/L (16-61); Anion Gap 6 (5-15); BUN 13 mg/dL (7-18); BUN/Creat Ratio 15.8 RATIO (10-20); Calcium,Total 8.6 mg/dL (8.5-10.1); Chloride 105 mmol/L (98-107); Cholesterol 171 mg/dL (200); Creatinine, Serum 0.82 mg/dL (0.70-1.30); EST Glomerular Filtration Rate 100 mL/min (>60); Est Glom Filt Rate - Afr Amer 120 mL/min (>60); Glucose 142 mg/dL (74-106); High Density Lipoprotein 41 mg/dL; Sodium Level 138 mmol/L (136-145); Triglycerides 212 mg/dL; Very Low Density Lipoprotein 42 mg/dL (5-40)
== END ==
PROVIDERS: PCP Family Medicine; Visit Provider Family Medicine
DX: Z00.00 Encounter for general adult medical examination without abnormal findings (principal); Z12.5 Encounter for screening for malignant neoplasm of prostate; I10 Essential (primary) hypertension; E78.5 Hyperlipidemia, unspecified
CPT/HCPCS: 36415; 80048; 80061; 84450; 84460

== ENCOUNTER → 2021-05-21 | Outpatient (CLI) | payer BC, SELFPAY ==
[2021-05-21 12:09] LABS: Erythrocyte Sedimentation Rate 8 mm/hr (0-20)
[2021-05-21 12:13] LABS: Absolute Lymphocyte Count 1.73 X10^3/uL (0.83-4.51); Basophil# 0.04 X10^3/uL; Basophil% 0.8 % (0-1); Eosinophil# 0.14 X10^3/uL; Eosinophils% 2.7 % (0-5); Hematocrit 41.3 % (40-54); Hemoglobin 14.5 g/dL (13.0-16.5); Lymphocyte # 1.73 X10^3/ul (0.83-4.51); Lymphocyte % 32.9 % (19-41); Mean Corp Hgb Conc 35.1 g/dL (32-36); Mean Corpuscular Volume 88.4 fL (80-94); Monocyte# 0.37 X10^3/uL; NRBC Flagged by Analyzer 0 % (0-5); Neutrophil # 2.96 X10^3/uL (2.7-7.7); Neutrophil % 56.2 % (47-70); Platelet Count 247 K/mm3 (150-450); RBC Distribution Width CV 13.1 % (11.6-14.6); RBC Distribution Width SD 42.5 fl (35.1-43.9); Red Blood Count 4.67 M/mm3 (4.6-6.2); White Blood Count 5.3 K/mm3 (4.4-11.0)
[2021-05-21 12:49] LABS: AST(SGOT) 23 U/L (15-37); Alanine Aminotransfer ALT/SGPT 56 U/L (16-61); Anion Gap 5 (5-15); BUN 14 mg/dL (7-18); BUN/Creat Ratio 15.6 RATIO (10-20); Calcium,Total 9.1 mg/dL (8.5-10.1); Chloride 106 mmol/L (98-107); Cholesterol 242 mg/dL (200); EST Glomerular Filtration Rate 90 mL/min (>60); Est Glom Filt Rate - Afr Amer 109 mL/min (>60); Glucose 135 mg/dL (74-106); High Density Lipoprotein 47 mg/dL; Potassium 3.8 mmol/L (3.5-5.1); Sodium Level 139 mmol/L (136-145); Thyroid Stim Hormone (TSH) 2.19 uIU/mL (0.358-3.74); Triglycerides 243 mg/dL; Very Low Density Lipoprotein 49 mg/dL (5-40)
== END | disposition home or self-care (01) ==
LOC: MFPLAB 10:42
PROVIDERS: PCP Family Medicine; Referring Provider Family Medicine; Visit Provider Family Medicine
DX: I10 Essential (primary) hypertension (principal); E78.5 Hyperlipidemia, unspecified; R53.81 Other malaise; R53.83 Other fatigue
CPT/HCPCS: 36415; 80048; 80061; 84403; 84443; 84450; 84460; 85025; 85652

== ENCOUNTER → 2021-06-19 | Outpatient (CLI) | payer BC, SELFPAY ==
--- NOTE | 2021-06-19 08:41 | ECHOD_ITS ---
Reason For Study: Murmur Procedure This was a 2D Doppler, Color Flow transthoracic echocardiogram. Exam performed in department. Left Ventricle Normal LV size. Left ventricular systolic function is normal. The estimated ejection fraction is 60 %. Stage 1 diastolic dysfunction. No regional wall motion abnormalities noted. Right Ventricle Normal RV size. Normal systolic function. Atria Normal left atrium. Normal right atrium. Mitral Valve Normal mitral valve. Tricuspid Valve Normal tricuspid valve. Mild (1+) tricuspid valve insufficiency. Pulmonary artery systolic pressure is 38 mmHg. Aortic Valve Normal aortic valve. Trisinus/trileaflet aortic valve. Pulmonic Valve Normal pulmonic valve. Great Vessels Normal aortic root. The pulmonary artery is normal size. Normal inferior vena cava. Pericardium/Pleural No pericardial effusion. MMode/2D Measurements & Calculations LVIDd: 5.0 cm IVSd: 1.3 cm LA dimension: 4.0 cm LVIDs: 3.1 cm LVPWd: 1.0 cm RVDd: 3.3 cm FS: 37.8 % LAV(MOD-bp): 58.1 ml LA A4 area: 19.4 cm2 RA A4 area: 16.8 cm2 LAV(MOD-bp) Indexed: 29.7 ml/m2 LAV(MOD-sp2): 59.6 ml LAV(MOD-sp4): 54.7 ml Time Measurements MV dec time: 0.25 sec Doppler Measurements & Calculations MV E max juan manuel: 104.1 cm/sec Lat Peak E' Juan Manuel: 10.9 cm/sec Med Peak E' Juan Manuel: 9.7 cm/sec MV A max juan manuel: 108.4 cm/sec E/E' lat: 9.5 E/E' med: 10.8 MV E/A: 0.96 MV V2 max: 111.9 cm/sec MV P1/2t max juan manuel: 113.2 cm/sec Ao V2 max: 183.4 cm/sec MV max P.0 mmHg MV P1/2t: 103.7 msec Ao max P.5 mmHg MV V2 mean: 61.5 cm/sec MV dec slope: 319.7 cm/sec2 MV mean P.9 mmHg MVA(P1/2t): 2.1 cm2 MV V2 VTI: 41.2 cm LV V1 max: 127.1 cm/sec PA V2 max: 110.7 cm/sec TR max juan manuel: 288.5 cm/sec LV V1 max P.5 mmHg TR max P.3 mmHg ECHO/Echo Complete Interpretation Summary Normal LV size. Left ventricular systolic function is normal. The estimated ejection fraction is 60 %. Pulmonary artery systolic pressure is 38 mmHg. Stage 1 diastolic dysfunction. Ordering Physician: Noreen Katz Referring Physician: Noreen Katz Performed By: Nikita Jacobs RCS
== END | disposition home or self-care (01) ==
LOC: CVS 08:38
PROVIDERS: PCP Family Medicine; Referring Provider Family Medicine; Visit Provider Family Medicine
DX: R01.1 Cardiac murmur, unspecified (principal)
CPT/HCPCS: 93306

== ENCOUNTER → 2021-11-26 | Outpatient (CLI) | payer BC, SELFPAY ==
[2021-11-26 16:56] LABS: PSA,Total - Annual Screen 2.46 ng/mL (0.00-4.00)
== END | disposition home or self-care (01) ==
LOC: MFPLAB 11:36
PROVIDERS: PCP Family Medicine; Referring Provider Family Medicine; Visit Provider Family Medicine
DX: Z12.5 Encounter for screening for malignant neoplasm of prostate (principal)
CPT/HCPCS: 36415; 84153; G0103

== ENCOUNTER → 2022-03-26 | Outpatient (CLI) | payer BC, SELFPAY ==
--- NOTE | 2022-03-26 16:10 | RAD_ITS ---
STUDY: X-RAY CHEST REASON FOR EXAM: Male, 67 years old. Chest pain. TECHNIQUE: Frontal and lateral views of the chest. COMPARISON: March 14, 2018. FINDINGS: The lungs are clear and expanded. There is no demonstrated pleural abnormality. Normal size heart. Normal mediastinum and tutu. Normal visualized pulmonary arteries. Normal visualized aortic arch and descending thoracic aorta. Normal visualized thoracic spine. Normal visualized ribs, clavicles, and shoulders. There is no demonstrated abnormality of the visualized soft tissue structures of the upper abdomen. RAD/Chest PA and Lateral IMPRESSION: No interval change. Normal chest. Electronically Signed: Brien Monge, at 9:43 EST ,
[2022-03-26 16:36] LABS: Absolute Lymphocyte Count 2.15 X10^3/uL (0.83-4.51); Absolute Neutrophil Count 3.6 X10^3/uL (2.0-7.7); Basophil# 0.03 X10^3/uL; Basophil% 0.5 % (0-1); Eosinophil# 0.16 X10^3/uL; Eosinophils% 2.5 % (0-5); Hematocrit 42.8 % (40-54); Hemoglobin 15.1 g/dL (13.0-16.5); Lymphocyte # 2.15 X10^3/ul (0.83-4.51); Lymphocyte % 33.4 % (19-41); Mean Corp Hgb Conc 35.3 g/dL (32-36); Mean Corpuscular Hgb 31.8 pg (27.0-32.0); Mean Corpuscular Volume 90.1 fL (80-94); Mean Platelet Vol. 10.9 fl (6.2-12.0); Monocyte# 0.52 X10^3/uL; Monocyte% 8.1 % (0-10); NRBC Flagged by Analyzer 0 % (0-5); Neutrophil # 3.55 X10^3/uL (2.7-7.7); Neutrophil % 55.2 % (47-70); Platelet Count 232 K/mm3 (150-450); RBC Distribution Width CV 13.2 % (11.6-14.6); RBC Distribution Width SD 43.9 fl (35.1-43.9); Red Blood Count 4.75 M/mm3 (4.6-6.2); White Blood Count 6.4 K/mm3 (4.4-11.0)
[2022-03-26 16:51] LABS: International Normalized Ratio 1.1; Prothrombin Time (Protime)PT. 13.4 SECONDS (11.7-14.9)
[2022-03-26 16:52] LABS: Partial Thromboplast Time 26.4 Seconds (24.1-36.2)
[2022-03-26 17:23] LABS: Anion Gap 10 (5-15); BUN 15 mg/dL (7-18); BUN/Creat Ratio 17.4 RATIO (10-20); Calcium,Total 9.5 mg/dL (8.5-10.1); Chloride 104 mmol/L (98-107); Creatinine, Serum 0.86 mg/dL (0.70-1.30); EST Glomerular Filtration Rate 94 mL/min (>60); Est Glom Filt Rate - Afr Amer 113 mL/min (>60); Glucose 111 mg/dL (74-106); Sodium Level 140 mmol/L (136-145)
== END | disposition home or self-care (01) ==
LOC: RAD 15:50
PROVIDERS: PCP Family Medicine; Referring Provider Internal Medicine Cardiovascular Disease; Visit Provider Internal Medicine Cardiovascular Disease
DX: I20.0 Unstable angina (principal); E78.5 Hyperlipidemia, unspecified; I10 Essential (primary) hypertension; R07.9 Chest pain, unspecified; R06.09 Other forms of dyspnea
CPT/HCPCS: 36415; 71046; 80048; 85025; 85610; 85730

== ENCOUNTER 2022-04-02 10:00 | Day surgery (SDC) | payer BC, SELFPAY ==
[2022-04-01 08:45] VITALS: BMI 29.3
--- NOTE | 2022-04-02 13:15 | CL.D_ITS ---
Patient Name: DAI REYES Study Date: 04/02/2022 Performing: Benedict Gandhi MD Ht: 66 inches 167.64 cm : 1955 Wt: 181.99 lbs 82.55 kg Age: 67 Gender: male BSA: 1.92 PROCEDURE(S) PERFORMED DC01-([id number])LHC/COR/LV CLINICAL PROFILE AND INDICATIONS Indications: Suspected CAD Heart Failure: None Stress/Imaging Stress/Image Study Performed: No CAD Presentations: Unstable angina. CONCLUSIONS Non obstructive coronary arteries Normal LV size, wall motion,and systolic function RECOMMENDATIONS Medical therapy DESCRIPTION OF PROCEDURE The patient arrived to the procedure lab. The risks and benefits of the procedure as well as a full description of our services here and current unavailability of surgical backup were fully explained to the patient and/or their significant other prior to the catheterization. The Timeout was completed, verifying the correct patient and procedure. The patient's procedural site was prepped and draped in the usual fashion. Local anesthetic was given subcutaneously to right radial region with Lidocaine 2%. Using a modified Seldinger technique, Right Coronary Artery selective angiography was then performed in multiple views using a 5 Fr. 4.0 Weston catheter. Left Coronary Artery selective angiography was performed in multiple views using a 5 Fr. 4.0 Weston catheter. Left Ventriculography was performed in BRAXTON projection using a 5 Fr. Pigtail catheter. LV to AO pullback pressures were then recorded.The arterial sheath was pulled and a TR Band was applied for hemostasis CORONARY ANGIOGRAPHY DOMINANCE: Left Dominant LEFT HEART ASSESSMENT Left Ventricular Ejection Fraction: by LV Gram 60 % Normal LV wall motion Normal Left Ventricular systolic function LEFT MAIN: Angiographically normal LEFT ANTERIOR DESCENDING ARTERY: No significant disease noted CIRCUMFLEX ARTERY: Mild luminal irregularities RIGHT CORONARY ARTERY: No significant disease noted COMPLICATIONS No Complications PROCEDURE MEDICATIONS Fentanyl 50 mcg IV Versed 1 mg IV Versed 1 mg IV Oxygen: 2 L/min via nasal cannula Benadryl 25 mg IV @ 04/02/2022 11:37:39 Heparin given IA 04/02/2022 12:13:38 Solu-cortef 100 mg IV 04/02/2022 11:37:27 SUMMARY OF HEMODYNAMIC DATA Time AIR REST ECG 10:16:56 Art 211/75 (122) 11:52:39 AO 136/70 (96) SA 12:15:05 LV 141/5, 11 12:19:39 LV 136/6, 15 12:19:45 LV 152/8, 18 12:20:19 LVp 148/6, 15 12:20:30 AOp 155/70 (106) 12:20:35 Signed By Benedict Gandhi MD On 04/02/2022 13:14:32 Benedict Gandhi MD
== END 2022-04-02 14:53 | disposition home or self-care (01) ==
LOC: CLSP 10:03
PROVIDERS: PCP Family Medicine; Referring Provider Internal Medicine Cardiovascular Disease; Visit Provider Internal Medicine Cardiovascular Disease
DX: I25.110 Atherosclerotic heart disease of native coronary artery with unstable angina pectoris (principal); I10 Essential (primary) hypertension; E78.5 Hyperlipidemia, unspecified; Z79.899 Other long term (current) drug therapy; Z87.891 Personal history of nicotine dependence
CPT/HCPCS: 93458; 99152; 99153; J7040; Q9967; C1769; C1894

== ENCOUNTER → 2022-05-26 | Outpatient (CLI) | payer BC, SELFPAY ==
[2022-05-26 12:16] LABS: Erythrocyte Sedimentation Rate 10 mm/hr (0-20)
[2022-05-26 12:18] LABS: Absolute Lymphocyte Count 1.71 X10^3/uL (0.83-4.51); Absolute Neutrophil Count 2.7 X10^3/uL (2.0-7.7); Basophil# 0.04 X10^3/uL; Basophil% 0.8 % (0-1); Eosinophil# 0.11 X10^3/uL; Eosinophils% 2.2 % (0-5); Hematocrit 38.4 % (40-54); Hemoglobin 13.7 g/dL (13.0-16.5); Lymphocyte # 1.71 X10^3/ul (0.83-4.51); Lymphocyte % 34.8 % (19-41); Mean Corp Hgb Conc 35.7 g/dL (32-36); Mean Corpuscular Hgb 31.9 pg (27.0-32.0); Mean Corpuscular Volume 89.5 fL (80-94); Mean Platelet Vol. 11.4 fl (6.2-12.0); Monocyte# 0.38 X10^3/uL; Monocyte% 7.7 % (0-10); NRBC Flagged by Analyzer 0 % (0-5); Neutrophil # 2.66 X10^3/uL (2.7-7.7); Neutrophil % 54.3 % (47-70); Platelet Count 236 K/mm3 (150-450); RBC Distribution Width SD 42.5 fl (35.1-43.9); Red Blood Count 4.29 M/mm3 (4.6-6.2); White Blood Count 4.9 K/mm3 (4.4-11.0)
[2022-05-26 12:41] LABS: AST(SGOT) 25 U/L (15-37); Alanine Aminotransfer ALT/SGPT 42 U/L (16-61); Anion Gap 6 (5-15); BUN 11 mg/dL (7-18); BUN/Creat Ratio 12.6 RATIO (10-20); Calcium,Total 8.6 mg/dL (8.5-10.1); Chloride 105 mmol/L (98-107); Cholesterol 208 mg/dL (200); Creatinine, Serum 0.87 mg/dL (0.70-1.30); EST Glomerular Filtration Rate 93 mL/min (>60); Est Glom Filt Rate - Afr Amer 112 mL/min (>60); Glucose 188 mg/dL (74-106); High Density Lipoprotein 48 mg/dL; Potassium 3.8 mmol/L (3.5-5.1); Sodium Level 135 mmol/L (136-145); Thyroid Stim Hormone (TSH) 1.85 uIU/mL (0.358-3.74); Triglycerides 153 mg/dL; Very Low Density Lipoprotein 31 mg/dL (5-40)
[2022-05-26 17:46] LABS: Hemoglobin A1c 5.5 % (3.8-5.6)
[2022-05-26 17:51] LABS: Microalbumin,Random Urine 25.1 mg/L (NO RANGE EST.)
== END | disposition home or self-care (01) ==
LOC: MFPLAB 10:47
PROVIDERS: PCP Family Medicine; Visit Provider Family Medicine
DX: I10 Essential (primary) hypertension (principal); R53.81 Other malaise; E78.5 Hyperlipidemia, unspecified
CPT/HCPCS: 36415; 80048; 80061; 82043; 82570; 83036; 84403; 84443; 84450; 84460; 85025; 85652

== ENCOUNTER → 2022-06-03 | Outpatient (CLI) | payer BC, SELFPAY | END | disposition home or self-care (01) | LOC: SL 10:13 | PROVIDERS: PCP Family Medicine; Referring Provider Nurse Practitioner Acute Care; Visit Provider Nurse Practitioner Acute Care | DX: G47.33 Obstructive sleep apnea (adult) (pediatric) (principal) | CPT/HCPCS: 95806 ==

== ENCOUNTER 2023-01-03 15:10 | Emergency (ER) | payer BC, SELFPAY ==
[2023-01-03 15:12] VITALS: BP 144/72; PULSE 62; RESP 18; TEMP 36.9; O2SAT 98; BMI 28.1
--- NOTE | 2023-01-03 15:40 | EX.ED.GENINJ ---
HPI History of Present Illness Chief Complaint: Other, Pain/Inj Narrative Narrative: 67-year-old male presenting with right gluteal pain that radiates down the posterior thigh. Symptoms started last evening. He denies any trauma. He states he was driving home from [place] and he noted that it is right gluteal region appear to be painful. He states he did not think he was anemic at home. He states that laying and sitting make it worse and getting up and ambulating and moving to get better. No back pain. No numbness or tingling. 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 States it does not feel the same. Denies any current DVT risk factors. No chest pain or shortness of breath. [facility] Medical History PHILIPPE (dyspnea on exertion) Essential hypertension Hyperlipidemia Macular degeneration MARIO (obstructive sleep apnea) Unstable angina Home Medications vit C 250 mg-vit E 90 mg-zinc 40 mg-copper 1 la-kkciss-wownfz capsule (PreserVision AREDS-2) 2 tab PO DAILY 03/26/22 [History Last Taken Unknown] amlodipine 10 mg tablet 10 mg PO DAILY #90 tabs 04/02/22 [Rx Last Taken Unknown] hydrochlorothiazide 25 mg tablet 25 mg PO DAILY #90 tabs 04/02/22 [Rx Last Taken Unknown] lisinopril 10 mg tablet 10 mg PO DAILY #90 tabs 04/02/22 [Rx Last Taken Unknown] Oral Appliace #1 ea 06/16/22 [Rx Last Taken Unknown] cyclobenzaprine 10 mg tablet 10 mg PO TID PRN Muscle Spasm #20 TABLETS 01/03/23 [Rx Last Taken Unknown] naproxen 500 mg tablet (Naprosyn) 500 mg PO BID PRN pain #20 tabs 01/03/23 [Rx Last Taken Unknown] Allergy/AdvReac Type Severity Reaction Status Date / Time shellfish derived Allergy Other Verified 01/03/23 15:12 Family History Father Cancer Social History Smoking Status: Former smoker how long ago did patient quit smokin years ago alcohol intake: current alcohol intake frequency: 0-2 drinks per day Alcohol type: beer substance use type: does not use caffeine: Yes Type: coffee Number of servings: 3 ROS ROS ED Constitutional Constitutional ED: Denies chills, fever(s) or sweats Eyes Eyes: Denies blurry vision or change in vision ENT ENT ED: Denies ear pain or sore throat Cardiovascular Cardiovascular: Denies chest pain, palpitations or racing heartbeat Respiratory/Chest Respiratory/Chest: Denies cough, dyspnea or sputum Gastrointestinal Gastrointestinal: Denies abdominal pain, constipation, diarrhea, nausea or vomiting Genitourinary Genitourinary ED: Denies dysuria, hematuria or urinary frequency Musculoskeletal Musculoskeletal: Reports other Details: Right gluteal pain ; Denies arthralgias, myalgias or neck pain Integumentary Denies abscess, Abrasions or rash Neurologic Neurologic: Denies headache(s), paresthesias or weakness Psychiatric Psychiatric: Denies anxiety, depression, suicidal ideation or suicidal thoughts Endocrine Endocrinology: Denies polydipsia or polyuria EXAM Physical Exam Const Vital Signs: 01/03/23 15:12 Temperature 98.5 F Temperature Source Temporal Pulse Rate 62 Respiratory Rate 18 Blood Pressure 144/72 H Blood Pressure Mean 96 Pulse Ox 98 Oxygen Delivery Method Room Air Positive well nourished General Appearance ED: NAD HEENT atraumatic Eyes PERRL Chest Wall inspection of chest normal Resp normal respiratory effort Cardio regular rhythm Rate: regular rate Back/Spine normal to inspection and no thoracic nor lumbar tenderness Extremity Extremity Narrative: Palpation the right gluteal region and right posterior thigh. Pain is increased with flexion and internal rotation of the hip. Is also increased with straight leg raise. Neuro oriented x3 and CN's II-XII intact bilaterally Sensorium / Orientation: alert Motor Exam: strength 5/5 throughout Psych mental status grossly normal and thought process normal Skin no rashes or lesions noted and no wounds MDM MDM MDM Narrative Medical decision making narrative: Patient presenting with right gluteal pain. She is nontraumatic. Exam most consistent with sciatica. Patient given Norflex and Toradol. We discussed the possibility of DVT and he states he has a distantly and it was in the left calf and he does not think that it feels the same. We will reevaluate him after medicating. Patient is offered outpatient ultrasound for tomorrow as we do not have DVT studies here today. He declines. Patient feeling better on reevaluation after Norflex and Toradol. He will be given Naprosyn and Flexeril for home. Impression: 1. Sciatica Discharge Plan Triage Chief Complaint: Other, Pain/Inj ED Provider: Cash Marcum Dx/Rx/DC Orders Instructions: ED Sciatica Prescriptions: New naproxen [Naprosyn] 500 mg tablet 500 mg PO BID PRN (Reason: pain) Qty: 20 0RF cyclobenzaprine 10 mg tablet 10 mg PO TID PRN (Reason: Muscle Spasm) Qty: 20 0RF No Action PreserVision AREDS-2 250-90-40-1 mg capsule 2 tab PO DAILY (DME) Oral Appliace See Rx Instructions .ROUTE .MEDSUPPLY Qty: 1 0RF Rx Instructions: As directed amlodipine 10 mg tablet 10 mg PO DAILY Qty: 90 3RF hydrochlorothiazide 25 mg tablet 25 mg PO DAILY Qty: 90 3RF lisinopril 10 mg tablet 10 mg PO DAILY Qty: 90 3RF Primary Care Provider: Noreen Katz Referrals: Noreen Katz MD [Primary Care Provider] - Disposition Disposition: Home, Self Care
[2023-01-03] MEDS: Ketorolac 15 MG/ML Vial IM (15:48)
[2023-01-03] MEDS: Orphenadrine 60 MG/2 ML Ampul IM (15:48)
[2023-01-03 16:55] VITALS: BP 168/58; PULSE 72; RESP 16; O2SAT 99
== END 2023-01-03 16:56 | disposition home or self-care (01) ==
PROVIDERS: Emergency Provider Student in an Organized Health Care Education/Training Program; PCP Family Medicine; Visit Provider Student in an Organized Health Care Education/Training Program
DX: M54.30 Sciatica, unspecified side (principal); G47.33 Obstructive sleep apnea (adult) (pediatric); Z87.891 Personal history of nicotine dependence; Z86.718 Personal history of other venous thrombosis and embolism
CPT/HCPCS: 96372; 99282

== ENCOUNTER → 2023-01-07 | Outpatient (CLI) | payer BC, SELFPAY ==
--- NOTE | 2023-01-07 15:30 | RAD_ITS ---
STUDY: X-RAY - PELVIS AND RIGHT HIP REASON FOR EXAM: Male, 67 years old. Right hip pain. TECHNIQUE: 3 views of the pelvis and hip. COMPARISON: None. FINDINGS: There is a non-specific bowel gas pattern. Prostatic calcifications. Normal bilateral iliac wings, sacroiliac joints and visualized sacrum. Normal bilateral superior and inferior pubic rami. Normal pubic symphysis. Normal bilateral ischial tuberosities. Normal visualized femoral head. There is osteoarthritic spur formation of the acetabular rim. There is mild articular joint space narrowing of the hip. RAD/HIP, UNI W/ Pelvis 2-3 Views IMPRESSION: Mild degree of degenerative changes of the right hip. Electronically Signed: Avelino Anna MD at 15:28 EST ,
== END | disposition home or self-care (01) ==
PROVIDERS: PCP Family Medicine; Referring Provider Family Medicine; Visit Provider Family Medicine
DX: M76.01 Gluteal tendinitis, right hip (principal)
CPT/HCPCS: 73502

== ENCOUNTER → 2023-03-09 | Outpatient (CLI) | payer BC, SELFPAY ==
--- NOTE | 2023-03-09 06:35 | MRI_ITS ---
INDICATION: pain. Sciatic nerve right leg] EXAMINATION: MRI - MR Spine Lumbar W/O Contrast TECHNIQUE: Multiplanar and multisequence MR images of the lumbar spine without contrast. IV Contrast Dosage and Agent: None. COMPARISON: Lumbar spine radiograph February 23, 2023. FINDINGS: VERTEBRAE: Normal bone marrow signal. No fracture or compression deformity. Mild diffuse endplate degenerative change. No aggressive osseous lesion. Normal lumbar spine alignment. CORD: Conus medullaris at L1. Imaged portion of the cord is normal signal.. L1/L2: Small broad-based posterior disc bulge and mild ligamentum flavum hypertrophy causing mild spinal canal and bilateral neural foraminal stenosis. L2/L3: Small broad-based posterior disc bulge and moderate ligamentum flavum hypertrophy causing moderate spinal canal and mild bilateral neural foraminal stenosis. L3/L4: Small broad-based posterior disc bulge and mild ligamentum flavum hypertrophy causing moderate to severe spinal canal and mild bilateral neural foraminal stenosis. L4/L5: Small broad-based posterior disc bulge and severe ligamentum flavum hypertrophy causing severe spinal canal stenosis and moderate bilateral neural foraminal stenosis with posterior element disease contact the exiting L4 nerve roots, left greater than right. L5/S1: Small broad-based posterior disc bulge and mild left facet arthropathy causing mild spinal canal and mild bilateral neural foraminal stenosis. SOFT TISSUES: Unremarkable. MRI/Spine Lumbar (Routine) IMPRESSION: Diffuse lumbar spondylosis with small posterior disc bulges and prominent posterior element disease causing severe spinal canal stenosis at L4-5 and moderate to severe spinal canal stenosis at L3-4. Multilevel neural foraminal stenosis, up to moderate at L4-5 where posterior element disease contacts the exiting L4 nerve roots. Electronically Signed: Emir Ly MD at 8:12 EST ,
== END | disposition home or self-care (01) ==
PROVIDERS: PCP Family Medicine; Referring Provider Orthopaedic Surgery; Visit Provider Orthopaedic Surgery
DX: M54.16 Radiculopathy, lumbar region (principal)
CPT/HCPCS: 72148

== ENCOUNTER 2023-03-20 15:00 | Outpatient (RCR) | payer BC, SELFPAY ==
--- NOTE | 2023-01-14 16:16 | HP.PTEVAL ---
Patient's Visit Information Visit Information Visit Information: DAI REYES is a 67 year old M referred to Physical Therapy by Dr. Noreen Katz MD with a diagnosis of GLUTEAL TENDONITIS ,RIGHT. Date of Evaluation: 01/14/23 Physical Therapist: Eric Buck PT, Cert MDT, OCS Visit Plan Frequency: 2x /Week Duration: 4 Weeks Plan: PT INTERVENTIONS GRADED LUMBAR ROM ,LOWER EXTREMITY FLEXABLITY ,POSTURAL EX'S ,DLS ,LUMBAR TRACTION AND MODALTIES Subjective Subjective: This 67 y/o male presents to physical therapy with gluteal tendinitis right. Patient has radicular symptoms in leg gluteal to hamstrings and calf. Seen Dr x-rays hip x-rays OA - Prescribed muscle relaxer and pain medication. Patient went to ER did injections. Aggravating factors sitting ,bending ,laying on sides ,lifting ,putting on socks ,driving sitting. Alleviating factors walking and moving. Pain affects sleeping. Coughing/sneezing -. Bowel/bladder -. Denies paresthesia/tingling. Patient has no h/o back pain. Patient has no treatment. Patient condition affects QOL and function. SOCIAL: VOCATION: [employer] Right Lower Extremity: Pain Intensity (Out of 10): 9 Pain Intensity Range: 10 Objective Objective: POSTURE: mild forward posture GAIT: reciprocal pattern antalgic gait right side mid forward posture NEURO: denies paresthesia/tingling , reflexes L4-5,L4-L5 ,L5-S1 1/3 MMT: left quads/hams 4-/5 ,hip flexion 4-/5 , right 4/5 ,ankle DF 4/5 LUMABR ROM: flexion mod loss pain ,extension mod/severe loss pain ,side glides mod loss FLEXABILITY: hamstrings mod loss with +SLR Special Tests L/S Slump test left side: Negative L/S Slump test right side: Positive L/S Left Straight Leg Raise: Negative L/S Right Straight Leg Raise: Negative Lumbar Standing: Flexion - Mechanical Response: No effect Lumbar Standing: Flexion - Symptoms During Testing: Increases Lumbar Standing: Flexion - Symptoms After Testing: Worse Comments:: HAMSTRINGS Lumbar Standing: Extension - Mechanical Response: No effect Lumbar Standing: Extension - Symptoms During Testing: Increases Lumbar Standing: Extension - Symptoms After Testing: Worse Comments:: HAMSTRING Lumbar Standing: Right Side Glides - Mechanical Response: No effect Lumbar Standing: Right Side Castella - Symptoms During Testing: No effect Lumbar Standing: Right Side Castella - Symptoms After Testing: No effect Lumbar Standing: Left Side Castella - Mechanical Response: No effect Lumbar Standing: Left Side Castella - Symptoms During Testing: No effect Lumbar Standing: Left Side Castella - Symptoms After Testing: No effect Lumbar Lying: Flexion - Mechanical Response: No effect Lumbar Lying: Flexion - Symptoms During Testing: No effect Lumbar Lying: Flexion - Symptoms After Testing: No effect Lumbar Lying: Extension - Mechanical Response: No effect Lumbar Lying: Extension - Symptoms During Testing: Increases Lumbar Lying: Extension - Symptoms After Testing: Worse R Hip Scour: Negative R Hip Quadrant - Intraarticular Pathology: Negative R Hip TASH - Intraarticular Pathology: Negative R Hip FADDIR - Labrum: Negative R Hip Impingement Provocation - Labrum: Negative R Hip Trendelenberg - Glut Medius: Negative R Hip Sohan - IT Band: Negative R Hip Resisted Exernal Derotation Test - GT Pain Syndrome: Negative Balance/Special Test Scores Oswestry Low Back Score: 30 Goals Goal 1:: Patient to be I with HEP . Goal Time Frame: 4-6 Weeks Goal 2:: Patient to demonstrate 50% improvement with function and less pain. Goal Time Frame: 4-6 Weeks Goal 3:: Patient to improve lumbar ROM for function of recovery to put on shoes Goal Time Frame: 4-6 Weeks Goal 4:: Patient to normailze gait with less pain Goal Time Frame: 4-6 Weeks Goal 5:: Patient to improve back oswestry score by 5 points to improve QOL. Goal Time Frame: 4-6 Weeks Rehabilitation Potential Physical Therapy Diagnosis: Patient appears to have possible HNP vs lateral foraminal stenosis worse with sitting ,flexion ,driving better with walking worse with motion testing and positioning thus benefit from skilled PT Rehabilitation Potential: Good Anticipated Interventions Patient/Client Instruction: Educate patient on: Condition and Plan of Care For the Purpose of:: To decrease pain, To increase ROM, To improve muscle performance and motor function, To improve ability to perform ADL's, To increase tolerance to activity/condition/position, To improve ability of physical actions for home/community/work/leisure, To improve health of tissue, To reduce risk of recurrence and To improve tolerance to ADL's Therapeutic Exercise to Include: Strength training, Endurance training, Balance training, Body mechanics, Postural training, Flexibilty training, Dynamic Lumbar Stabilization and Vivian Exercises For the Purpose of:: To decrease pain, To increase ROM, To improve muscle performance and motor function, To increase tolerance to activity/condition/position, To improve ability of physical actions for home/community/work/leisure, To improve health of tissue, To decrease soft tissue restriction, To increase flexibility/ROM, To prevent re-injury and To improve tolerance to ADL's TENS: Yes IF ES: Yes Cryotherapy (ice pack, ice massage): Yes Thermo therapy (hot pack): Yes Ultrasound (thermal/non thermal): Yes Pelvic traction supine: Yes For the Purpose of:: To decrease pain, To increase ROM, To improve nutrient delivery to tissue and To increase oxygenation perfusion Text: Thank you for the opportunity to evaluate your patient. For Medicare and Medicare HMO plans, please review the plan of care and approve it. It will need to be FAXED BACK to us at [phone] for Medicare purposes. For Medicare only, by signing this I certify the plan of care. Please let me know if there are questions or concerns regarding this plan of care. Physician Signature: Date:
--- NOTE | 2023-03-20 15:32 | HP.PTDCSUM ---
Discharge Summary D/C summary: It has been my pleasure to treat DAI REYES referred by Dr. Noreen Katz MD, with the diagnosis of GLUTEAL TENDONITIS ,RIGHT for a total of 18 visit(s). Discharge Date: 03/20/23 Please see the following information for a summary of their discharge status. Subjective Subjective: Seen Ortho reviewed MRI Cont with PT or gym ex's If gets worse RTD possible pain management Pain Right Lower Extremity: Pain Intensity (Out of 10): 0 Left Back: Pain Intensity (Out of 10): 1 Overall Improvement % Improvement: 95 Objective Objective/Function: POSTURE: mild forward posture GAIT: reciprocal pattern NEURO: denies paresthesia/tingling , reflexes L4-5,L4-L5 ,L5-S1 1/3 MMT: left quads/hams 4/5 ,hip flexion 4-5 , right 4/5 ,ankle DF 4/5 LUMABR ROM: flexion min loss ,extension mod loss ,side glides min loss FLEXABILITY: hamstrings mod loss -SLR Goals Goal 1:: Patient to be I with HEP . Goal Progress: Goal Met Goal 2:: Patient to demonstrate 50% improvement with function and less pain. Goal Progress: Goal Met Goal 3:: Patient to improve lumbar ROM for function of recovery to put on shoes Goal Progress: Goal Met Goal 4:: Patient to normailze gait with less pain Goal Progress: Goal Met Goal 5:: Patient to improve back oswestry score by 5 points to improve QOL. Plan Plan: D/C D/C Information Discharge Comments: HEP AND GYM d/c sentence: If there are questions or concerns regarding this patient's physical therapy, please feel free to call me at [phone]. Thank you for the referral of this patient. Sincerely, Eric Buck, PT, Cert MDT, OCS Balance/Gait/Functional tests Balance/Special Test Scores Oswestry Low Back Score: 3 Improvement % Improvement: 95
== END 2023-03-20 19:00 | disposition home or self-care (01) ==
LOC: PT 15:00
PROVIDERS: PCP Family Medicine; Referring Provider Family Medicine; Visit Provider Family Medicine
DX: M76.01 Gluteal tendinitis, right hip (principal)
CPT/HCPCS: 97032; 97110; 97162

== ENCOUNTER 2023-07-14 09:19 | Observation (INO) | payer BC, SELFPAY ==
--- NOTE | 2023-07-02 06:28 | EKG12_ITS ---
Test Reason : PREOP Blood Pressure : / mmHG Vent. Rate : 049 BPM Atrial Rate : 049 BPM P-R Int : 208 ms QRS Dur : 122 ms QT Int : 436 ms P-R-T Axes : 013 -60 016 degrees QTc Int : 393 ms Sinus bradycardia with sinus arrhythmia Non-specific intra-ventricular conduction block Abnormal ECG Confirmed by Stephen Weathers ([id number]), staff editor WANG TIMMONS ([id number]) on 07/03/2023 8:50:12 AM Referred By: Aashish Beavers Confirmed By:Stephen Weathers
[2023-07-02 06:46] LABS: Absolute Lymphocyte Count 2.21 X10^3/uL (0.83-4.51); Absolute Neutrophil Count 2.7 X10^3/uL (2.0-7.7); Basophil# 0.04 X10^3/uL; Basophil% 0.7 % (0-1); Eosinophils% 5.3 % (0-5); Hematocrit 40.5 % (40-54); Hemoglobin 13.6 g/dL (13.0-16.5); Lymphocyte # 2.21 X10^3/ul (0.83-4.51); Lymphocyte % 38.8 % (19-41); Mean Corp Hgb Conc 33.6 g/dL (32-36); Mean Corpuscular Hgb 30.7 pg (27.0-32.0); Mean Corpuscular Volume 91.4 fL (80-94); Mean Platelet Vol. 10.8 fl (6.2-12.0); Monocyte# 0.45 X10^3/uL; Monocyte% 7.9 % (0-10); NRBC Flagged by Analyzer 0 % (0-5); Neutrophil # 2.66 X10^3/uL (2.7-7.7); Neutrophil % 46.8 % (47-70); Platelet Count 225 K/mm3 (150-450); RBC Distribution Width CV 12.7 % (11.6-14.6); RBC Distribution Width SD 42.4 fl (35.1-43.9); Red Blood Count 4.43 M/mm3 (4.6-6.2); White Blood Count 5.7 K/mm3 (4.4-11.0)
[2023-07-02 07:30] LABS: Anion Gap 5 (5-15); BUN 15 mg/dL (7-18); BUN/Creat Ratio 17.1 RATIO (10-20); Calcium,Total 8.8 mg/dL (8.5-10.1); Chloride 109 mmol/L (98-107); Creatinine, Serum 0.88 mg/dL (0.70-1.30); EST Glomerular Filtration Rate 91 mL/min (>60); Est Glom Filt Rate - Afr Amer 111 mL/min (>60); Glucose 113 mg/dL (74-106); Potassium 3.9 mmol/L (3.5-5.1); Sodium Level 139 mmol/L (136-145)
[2023-07-02 08:47] LABS: HIV - WCH Non-Reactive (Nonreactive); Hepatitis B Surface Antibody Non-Reactive; Hepatitis C Antibody Non-Reactive (Nonreactive)
[2023-07-02 08:48] LABS: Magnesium 2.4 mg/dL (1.6-2.6)
[2023-07-03 05:07] LABS: Hepatitis A AB, Total Positive (Negative)
[2023-07-14] VITALS (13 sets, daily range): BP systolic 115–148; BP diastolic 56–73; PULSE 45–64; RESP 7–16; TEMP 36.3–36.7; O2SAT 97–100; BMI 27.7
[2023-07-14] MEDS: Acetaminophen 500 MG Tablet 1000 MG PO ×3 (06:09→22:39)
[2023-07-14] MEDS: Lactated Ringers 1,000 ML 15 ML IV ×2 (06:09→09:04)
[2023-07-14] MEDS: Magnesium 1 GM over 15 mins IV (06:10)
[2023-07-14 07:25] LABS: Bedside Glucose 151 mg/dL (74-106)
--- NOTE | 2023-07-14 07:27 | PCM.HP.BLA ---
History and Physical Date of Admission: 07/14/23 MR#: [id number] Acct: [id number] Name: DAI REYES Rep #: [id number] : 1955 Provider: Dr. Aashish Beavers MD Age/Sex: 68/M Location: [facility] [place] Status: Signed Intake Vital Signs 06/17/2407:50 Height 5 ft 8.5 in Weight: 179 lb 8 oz BMI 26.9 Intake Visit Reasons: lumbar spine Chief Complaint: Lumbar spine pain Accompanied by: Self Is patient in pain?: Yes Pain scale (1-10): 3 Allergies shellfish derived Allergy (Verified 07/02/23 09:47) Other Medications ?Medication ?Instructions ?Recorded ?Confirmed ?Type hydrochlorothiazide 25 mg tablet 25 mg PO DAILY #90 tabs 04/02/22 07/02/23 Rx Oral Appliace #1 ea 06/16/22 06/17/23 Rx mv-mn-folic 200 mcg-vit K 15 2 cap PO DAILY 04/14/23 07/02/23 History mcg-lutein 5 mg-zeaxanthin 1 mg capsule (PreserVision AREDS 2 Plus Multivit) amlodipine 10 mg tablet 10 mg PO QHS 06/30/23 07/02/23 History lisinopril 10 mg tablet 10 mg PO DAILY 06/30/23 07/02/23 History multivitamin with iron-mineral 2 tab PO DAILY 06/30/23 07/02/23 History PFSH Medical History Wears glasses Alcohol use DVT (deep venous thrombosis) Migraine headache Injury of head and neck Syncope Shortness of breath on exertion Former smoker Leg cramps History of pain when walking Cardiology follow-up encounter History of echocardiogram PHILIPPE (dyspnea on exertion) Hyperlipidemia Essential hypertension Unstable angina MARIO (obstructive sleep apnea) Macular degeneration Surgical History Hx of colonoscopy Hx of cardiac cath Family History Father Cancer Social History Smoking Status: Former smoker how long ago did patient quit smokin years ago alcohol intake: current alcohol intake frequency: 0-2 drinks per day Alcohol type: beer substance use type: does not use caffeine: Yes Type: coffee Number of servings: 3 HPI lumbar spine Details: This documentation accurately reflects the service provided and the decisions made by me, Dr. Aashish Beavers MD 07/02/23 [id number]. Part of today?s visit was documented by Gisela SIMMS , acting as scribe. DAI REYES is a 68 year old M here today for a pro-op. D.O.S 07/14/2023 Lumbar Laminectomy L4-5. Dai presents back to 75% of the last 1 year. He has had chiropractic treatment as well as physical therapy earlier this year. Initially it helped him but eventually it has started to bother him significantly such that he has to find a place to sit down after walking certain distance. He has lower back pain that radiates down the right lower extremity with numbness after walking certain distance. He feels like he needs to lean forward after walking certain distance. At some point he was advised to obtain epidural injections but was unable to get them and his symptoms continue to worsen. He was seen by Dr. Torres who referred him to me for consideration of surgery. He denies any left-sided symptoms. He is nondiabetic. He is a non-smoker. Ortho Exam General General: Yes no acute distress Neurologic: Yes alert and Yes oriented x3 Spine SPINE TESTING CERVICAL THORACIC LUMBAR Musculoskeletal Strength 0=absent - 5=normal Details: Examination the back shows midline and right paraspinal tenderness. Neurologic bilateral lower extremity shows 5 x 5 power normal shows normal sensations in all dermatomes. Coding Level of Care Code Off vis,est,level 4 Diagnoses Spinal stenosis of lumbar region with neurogenic claudication M48.062 Time Spent (min) 35 Comment Modifier 57 Assessment and Plan Assessment and Plan (1) Spinal stenosis of lumbar region with neurogenic claudication: Status: Acute Orders: Orders L/S Spine Bending Flex/Ext Today M48.062 - Spinal stenosis, lumbar region with neurogenic claudication Plan I reviewed patient's x-rays and MRI done earlier this year. I also obtained flexion-extension views today in the clinic. These show multilevel mild disc degeneration. L4-5 there is severe central and lateral recess stenosis. Mild facet arthrosis noticed. No dynamic instability on flexion-extension views. Mild to moderate stenosis also noticed at L2-3 and L3-4. I explained to him his imaging findings in detail. He has developed significant stenosis most severe at L4-5 with worsening neurogenic claudication. His symptoms go down below the knee along the lateral aspect of the leg and dorsum of the foot. The symptoms are affecting his quality of life. His claudication distance is worsening with time. He wishes to proceed with surgical intervention. Surgical options were discussed. Patient does not seem to have significant instability on flexion-extension views. I recommend L4-5 laminectomy decompression. All risk benefits alternatives were discussed in detail. Risks include but are not limited to infection, bleeding, injury to nerves and vessels, foot drop, persistent pain, persistent radiculopathy, iatrogenic instability, need for further surgeries, need for fusion, incomplete decompression, recurrent stenosis, DVT, pulm embolism, pneumonia, atelectasis, cardiopulmonary event. Patient understands and agrees to proceed with surgery. Consent was signed.
[2023-07-14] MEDS: Cefazolin 2 GM in 0.9% Normal Saline (100mL Bag) 100 ML IV ×3 (07:38→22:40)
--- NOTE | 2023-07-14 07:50 | RAD_ITS ---
PROCEDURE: L4-L5 laminectomy. DATE OF EXAMINATION: July 14, 2023. INDICATION: Male, 68 years old. Low back pain. FLUOROSCOPY TIME (if supplied): (5.4 seconds) minutes/seconds. 1.86 mGy. One image was submitted. RAD/Spine 1 View Any Level IMPRESSION: Intraoperative imaging provided for L4-L5 laminectomy. Electronically Signed: Avelino Anna MD at 12:23 EDT ,
[2023-07-14] MEDS: Dexamethasone IV Preserv Free 10 MG/ML VIAL IV (09:00)
--- NOTE | 2023-07-14 09:22 | OP.PCM_ITS ---
Report of Operation Date of Procedure: 07/14/23 Description of Surgical Findings:: Preoperative diagnosis: L4-5 central lateral recess stenosis bilateral, neurogenic claudication Postoperative diagnosis: Same Name of procedure: L4-5 open laminectomy CPT 93886 Attending Surgeon: Dr. Aashish Beavers Lingo Cleaner surgeon: Dr. Lan Torres Estimated blood loss: 30 mL Anesthesia: General Indications: Patient is a 68-year-old gentleman who presented with low back pain and severe right worse than left lower extremity radiation, with difficulty walking distances and neurogenic claudication. MRI revealed multilevel lumbar disc degeneration with congenital bony canal narrowing with stenosis most severe at L4-5 which is central as well as bilateral lateral recess. All options of treatment were discussed which included continued nonoperative treatment measures like rest physical therapy, injections. After prolonged nonsurgical treatment, patient requested surgical intervention for laminectomy. All risks and benefits associated with the procedure were explained to the patient. The risks include but are not limited to infection, bleeding, injury to nerves and vessels, persistent paresthesia, incidental dural tear, recurrent disc herniation, spinal instability and need for fusion or other procedures in future, persistent pain, persistent weakness and numbness, etc. Procedure: The patient was identified in the preoperative holding suite using Unique patient identifiers. Skin was marked, consent was reviewed, and all questions were answered. The patient was then brought back to the operative room. A surgical timeout was performed to make sure correct procedure was being done on the correct patient and all operative room staff were on the same page. General endotracheal anesthesia was then given to the patient. The patient was then turned prone onto a Gilberto table over a Cesar frame. The back was prepped and draped in usual fashion. Preoperative antibiotic was given. A final timeout was then again done just before starting the procedure. An 18-gauge spinal needle was inserted and was confirmed on C-arm lateral view to be at the L4-5 level. An incision was then carried out approximately 1 inch length in the midline. Bovie was utilized to dissect through the subcutaneous tissue up to the fascia. The fascia was bovied at the spinous process. Subperiosteal dissection was carried out along the both side of the spinous process and the lamina. This dissection was stopped at the level of the medial capsule of the facet joint. Lateral edge of the pars was also identified. A Leydi was then placed under the inferior edge of the lamina and a C-arm lateral view was repeated. The level was confirmed to be the L4-5 interspace. A Fan retractor of appropriate depth was then placed to provide retraction throughout the remainder of the surgery. A bone cutter was used to remove the spinous process. [employer] bone scalpel was then utilized to first create a score along the area of the laminectomy. Care was taken to preserve at least 1 cm of bone from the lateral border of the pars. The bone scalpel was then advanced to perform the cuts along this score. The lamina was then removed with the help of procedures. The flavum was utilized to protect the dura and superior articular process was carefully from the flavum. Partial medial facetectomy was performed to provide adequate lateral recess decompression. Severe portion of L5 lamina was also removed with help of Kerrisons. All of the flap was eventually removed. Once decompression was adequately assessed with Barrett in both L5 and L4 foramina bilaterally, irrigation was done with normal saline. Valsalva maneuver up to 40 mmHg pressure sustained was then done by anesthesia for a few seconds to confirm no dural leak. Irrisept was kept in the wound for 1 minute and then rinsed with saline. 10 mg of pr eservative-free dexamethasone was then sprinkled over the dura and traversing nerve roots bilaterally. A small piece of Gelfoam was then placed over the bony window. The Fan retractor was then removed. And closure was done in layers, 0 Vicryl for the deep fascia, 2-0 Vicryl for subcutaneous tissue, and 4-0 Monocryl for the skin. The deep fascial layer was closed in a watertight fashion with interrupted 0 Vicryl. The skin closure was augmented with Dermabond. 2 x 2 gauze was then placed over the wound covered with Tegaderm. The patient was then turned supine onto a hospital bed. The patient was extubated and taken to PACU in stable condition. The patient tolerated the procedure well and no complications occurred. Estimated blood loss for the entire surgery was 30 mL. No instrumentation was utilized in this case. No dural tear occurred in this case. I was present for the entirety of the case and performed the surgery myself. Surgeon: Aashish Beavers ict sales representative: Lan Torres Admit VTE Documentation VTE Mechan Device Prophylaxis: SCD's Procedures Musculoskeletal [id number]: Other Procedure See Report
[2023-07-14] MEDS: Bupivacaine Mpf 0.5% 30 ML VIAL (09:25)
[2023-07-14] MEDS: Senna/Docusate Sodium 1 Tablet 2 TABLET PO ×2 (11:38→22:40)
[2023-07-14] MEDS: Multivitamin (Healthy Eyes) Capsule 2 CAP PO (11:39)
[2023-07-14] MEDS: Multivitamins,Ther W-Minerals Tablet 2 TABLET PO (11:39)
[2023-07-14] MEDS: hydroCHLOROthiazide 25 MG Tablet PO (11:39)
[2023-07-14] MEDS: Ketorolac 15 MG/ML Vial IV ×2 (13:30→22:40)
[2023-07-14] MEDS: Methocarbamol 500 MG Tablet 1000 MG PO ×3 (13:30→22:39)
[2023-07-14] MEDS: 0.9% Saline Lock 10 ML Syringe IV (13:31)
[2023-07-14] MEDS: amLODIPine 10 MG Tablet PO (22:39)
[2023-07-15 03:56] VITALS: BP 151/70; PULSE 61; RESP 16; TEMP 36.6; O2SAT 97
[2023-07-15] MEDS: Acetaminophen 500 MG Tablet 1000 MG PO ×2 (06:07→13:38)
[2023-07-15] MEDS: 0.9% Saline Lock 10 ML Syringe IV (06:07)
[2023-07-15] MEDS: Ketorolac 15 MG/ML Vial IV (06:07)
[2023-07-15 07:21] LABS: Hematocrit 41.5 % (40-54); Hemoglobin 14.2 g/dL (13.0-16.5); Mean Corp Hgb Conc 34.2 g/dL (32-36); Mean Corpuscular Hgb 31.3 pg (27.0-32.0); Mean Corpuscular Volume 91.4 fL (80-94); Mean Platelet Vol. 11.9 fl (6.2-12.0); Platelet Count 233 K/mm3 (150-450); RBC Distribution Width CV 12.9 % (11.6-14.6); RBC Distribution Width SD 42.8 fl (35.1-43.9); Red Blood Count 4.54 M/mm3 (4.6-6.2)
[2023-07-15 09:03] VITALS: BP 142/63; PULSE 58; RESP 16; TEMP 36.6; O2SAT 98
[2023-07-15] MEDS: hydroCHLOROthiazide 25 MG Tablet PO (09:07)
[2023-07-15] MEDS: Multivitamins,Ther W-Minerals Tablet 2 TABLET PO (09:07)
[2023-07-15] MEDS: Senna/Docusate Sodium 1 Tablet 2 TABLET PO (09:07)
[2023-07-15] MEDS: Multivitamin (Healthy Eyes) Capsule 2 CAP PO (09:07)
[2023-07-15] MEDS: Meloxicam 15 MG Tablet PO (09:08)
[2023-07-15] MEDS: Lisinopril 10 MG Tablet PO (09:08)
[2023-07-15] MEDS: Methocarbamol 500 MG Tablet 1000 MG PO ×2 (09:08→13:38)
--- NOTE | 2023-07-15 09:45 | CASEMGMT ---
RN CM Face to Face with patient for initial transition planning/care coordination assessment. RN CM introduced self and role at [facility]. Patient lying in bed, alert and oriented. Patient willing to participate in assessment and is able to answer all questions appropriately. Care providers, pharmacy, and demographics verified. PCP: [facility] Specialists: janel Beavers Pharmacy: [facility] Insurance: [employer] Prescription Benefit: yes Living Will/HPOA: yes, Elda Molina LNOK: Living Arrangements: Patient lives with in a single story home with 2 steps to enter. Patient states he is independent at home. Transportation: self, DME/HHC: Patient denies DME in the home. No previous HHC or SNF. Patient denies need for DME at discharge. Patient wishes to discharge home, denies need for home health at this time. Patient states he has no further needs or concerns at this time. CM to follow for discharge planning needs that may arise. Disposition Plan: Patient to discharge home with family support and follow-up plans in place. Raven DOUGLASS, RN, CM
[2023-07-15 09:47] LABS: Anion Gap 7 (5-15); BUN 20 mg/dL (7-18); BUN/Creat Ratio 20.6 RATIO (10-20); Calcium,Total 9.3 mg/dL (8.5-10.1); Chloride 104 mmol/L (98-107); Creatinine, Serum 0.97 mg/dL (0.70-1.30); EST Glomerular Filtration Rate 82 mL/min (>60); Est Glom Filt Rate - Afr Amer 99 mL/min (>60); Estimated Creatinine Clearance 72.97 ml/min; Glucose 129 mg/dL (74-106); Potassium 3.9 mmol/L (3.5-5.1); Sodium Level 137 mmol/L (136-145)
--- NOTE | 2023-07-15 10:44 | PCM.PN.HOSP ---
Subjective Subjective Doing well, no issues overnight Objective Data Objective Data Vital Signs: Vital Signs Temp Pulse Resp BP Pulse Ox O2 Del Method O2 Flow Rate 97.9 F 58 L 16 142/63 H 98 Room Air 4 07/15/23 09:03 07/15/23 09:03 07/15/23 09:03 07/15/23 09:03 07/15/23 09:03 07/15/23 09:03 07/14/23 10:30 Oxygen Flow Rate (L/min) 4 Oxygen Delivery Method Room Air Weight: 177 lb Body Mass Index (BMI) 27.7 Intake & Output: Intake and Output for Last 24 Hours 07/14/23 07/15/23 07/16/23 03:59 03:59 03:59 Intake Total 1996.00 / 1996. 200 / 200 Output Total 350 / 350 Balance 1647.00 / 1647.00 200 / 200 Lab / Micro Data 07/15/23 06:21 07/15/23 06:21 Labs: Laboratory Results - last 24 hr 07/15/23 06:21: WBC 16.0 H, RBC 4.54 L, Hgb 14.2, Hct 41.5, MCV 91.4, MCH 31.3, MCHC 34.2, RDW Std Deviation 42.8, RDW Coeff of Kevin 12.9, Plt Count 233, MPV 11.9, Sodium 137, Potassium 3.9, Chloride 104, Carbon Dioxide 26.0, Anion Gap 7, BUN 20 H, Creatinine 0.97, Estim Creat Clear Calc 72.97, Est GFR (MDRD) Af Amer 99, Est GFR (MDRD) Non-Af 82, BUN/Creatinine Ratio 20.6 H, Glucose 129 H, Calcium 9.3 Micro: Microbiology 07/02/23 06:21 Swab (Method) Nasal Screen MRSA/MSSA - Final Radiography Diagnostic Testing: Radiology Impression Spine X-Ray 07/14/23 07:50 IMPRESSION: Intraoperative imaging provided for L4-L5 laminectomy. Electronically Signed: Avelino Anna MD at 12:23 EDT , Physical Exam Narrative General: Alert, Oriented x3, Cooperative, No apparent distress HEENT: Atraumatic, PERRLA, EOMI, Normocephalic Oral: Moist Mucosa Neck: Supple, No JVD Lungs: Clear to auscultation, Normal air movement, No rhonchi, No wheeze, No rales Cardiovascular: Regular rate, Regular Rhythm, Normal S1, Normal S2, No murmurs Abdomen: Soft, Non Tender, Non-Distended, No Hepato-splenomegaly Extremities: No edema, Capillary Refill Less than 3 Seconds Skin: No rashes, No breakdown, dressing CDI Musculoskeletal: No Tenderness to Palpation of Joints or Extremities Neurological: No focal neurological deficits, Motor Exam 5/5 strength throughout, Sensory exam intact to light touch and pain Psych/Mental Status: Normal Affect, Appropriate Assessment & Plan Assessment/Plan (1) Spinal stenosis of lumbar region with neurogenic claudication: PLAN: Plan 1. L4-5 central lateral recess stenosis with neurogenic claudication status post L4-5 laminectomy on 07/14/2023 ? Pain management per primary ? Discharge planning per primary ? From medical standpoint stable for discharge ? Can resume all of his home blood pressure medications ? Leukocytosis is likely reactive 2. Essential HTN ? Blood pressure stable, renal function stable ? Can resume amlodipine, hydrochlorothiazide, lisinopril Charges/Coding Visit Charges Office Visits / Consults: [id number] OV L3 New 30min
--- NOTE | 2023-07-15 10:56 | PCM.PN.ORT ---
Subjective Subjective Postop day 1 status post L4-5 laminectomy. Pain well-controlled Objective Data Objective Data Vital Signs: Vital Signs Temp Pulse Resp BP Pulse Ox O2 Del Method O2 Flow Rate 97.9 F 58 L 16 142/63 H 98 Room Air 4 07/15/23 09:03 07/15/23 09:03 07/15/23 09:03 07/15/23 09:03 07/15/23 09:03 07/15/23 09:03 07/14/23 10:30 Oxygen Flow Rate (L/min) 4 Oxygen Delivery Method Room Air Weight: 177 lb Body Mass Index (BMI) 27.7 Intake & Output: Intake and Output for Last 24 Hours 07/13/23 07/14/23 07/15/23 23:59 23:59 23:59 Intake Total 1547.00 / 1997.00 650 / 650 Output Total 350 / 350 Balance 1197.00 / 1647.00 650 / 650 Lab / Micro Data 07/15/23 06:21 07/15/23 06:21 Labs: Laboratory Results - last 24 hr 07/15/23 06:21: WBC 16.0 H, RBC 4.54 L, Hgb 14.2, Hct 41.5, MCV 91.4, MCH 31.3, MCHC 34.2, RDW Std Deviation 42.8, RDW Coeff of Kevin 12.9, Plt Count 233, MPV 11.9, Sodium 137, Potassium 3.9, Chloride 104, Carbon Dioxide 26.0, Anion Gap 7, BUN 20 H, Creatinine 0.97, Estim Creat Clear Calc 72.97, Est GFR (MDRD) Af Amer 99, Est GFR (MDRD) Non-Af 82, BUN/Creatinine Ratio 20.6 H, Glucose 129 H, Calcium 9.3 Micro: Microbiology 07/02/23 06:21 Swab (Method) Nasal Screen MRSA/MSSA - Final Radiography Diagnostic Testing: Radiology Impression Spine X-Ray 07/14/23 07:50 IMPRESSION: Intraoperative imaging provided for L4-L5 laminectomy. Electronically Signed: Avelino Anna MD at 12:23 EDT , Physical Exam Narrative Dressing?CDI. Neurologic evaluation of lower extremity shows 5 x 5 power normal shows normal sensations in all dermatomes. Assessment & Plan Assessment/Plan (1) Status post laminectomy: PLAN: Plan Postop day 1 status post L4-5 laminectomy. Patient has been ambulating without any discomfort. His lower extremity symptoms have resolved. Okay to discharge and follow-up in 2 weeks in clinic.
--- NOTE | 2023-07-15 13:32 | CASEMGMT ---
Social Work SW met with pt and discussed advance directives. Pt states he has completed a living will and Health Care POA naming his Elda Molina. SW informed pt that documents are not on file at [facility] and requested they be brought in for scanning into the EMR. Pt agreeable. RODOLFO Vickers
[2023-07-15 13:36] VITALS: BP 152/64; PULSE 56; RESP 18; TEMP 36.3; O2SAT 98
--- NOTE | 2023-07-15 15:41 | PHA.DC.MC.R ---
Pharmacy [facility] has performed discharge medication reconciliation and counseling for this patient. Patient would like medications transferred, aware oxycodone can not be transferred. Updated preferred pharmacy to [facility] [place]. 1. ACETAMINOPHEN 500MG PO Q6 2. MELOXICAM 15MG PO DAILYCM 3. METHOCARBAMOL 750MG PO TID PRN PAIN/SPASMS 4. OXYCODONE 2.5-5MG PO Q6H PRN PAIN 5. SENNA/DOCUSATE 2T PO BID PRN CONSTIPATION The patient's discharge medication list was reviewed for discrepancies and discrepancies were resolved. The patient was counseled on the following discharge medications and changes in medications for homegoing were reviewed. The Reason for Use, instructions for use, and potential side effects were reviewed for all new medications. The patient's questions regarding all of their medications were answered. The patient was able to verbally demonstrate an understanding of their discharge medications. Patient counseled by account representativeDalia. Medications at Discharge Home Medications hydrochlorothiazide 25 mg tablet 25 mg PO DAILY #90 tabs 04/02/22 Oral Appliace #1 ea 06/16/22 mv-mn-folic 200 mcg-vit K 15 mcg-lutein 5 mg-zeaxanthin 1 mg capsule (PreserVision AREDS 2 Plus Multivit) 2 cap PO DAILY 04/14/23 amlodipine 10 mg tablet 10 mg PO QHS 06/30/23 lisinopril 10 mg tablet 10 mg PO DAILY 06/30/23 multivitamin with iron-mineral 2 tab PO DAILY 06/30/23 acetaminophen 500 mg tablet 500 mg PO Q6H 7 days #28 tabs 07/15/23 meloxicam 15 mg tablet 15 mg PO DAILY 30 days #30 tabs 07/15/23 methocarbamol 500 mg tablet 750 mg (1.5 x 500 mg) PO TID PRN Pain/spasms 5 days #20 tabs 07/15/23 oxycodone 5 mg tablet 2.5 - 5 mg (0.5 - 1 x 5 mg) PO Q6H PRN pain 5 days #20 tabs 07/15/23 sennosides 8.6 mg-docusate sodium 50 mg tablet (Stool Softener-Stimulant Laxative) 2 tab PO BID PRN constipation 7 days #28 tabs 07/15/23
== END 2023-07-15 15:54 | disposition home or self-care (01) ==
LOC: SDC 11:09 → MS3 11:09
PROVIDERS: Anesthesiology; Admitting Provider Orthopaedic Surgery Orthopaedic Surgery of the Spine; PCP Family Medicine; Referring Provider Orthopaedic Surgery Orthopaedic Surgery of the Spine; Visit Provider Orthopaedic Surgery Orthopaedic Surgery of the Spine
PROC: (CPT 63030; principal; 2023-07-14 07:00)
DX: M48.062 Spinal stenosis, lumbar region with neurogenic claudication (principal); I10 Essential (primary) hypertension; R26.2 Difficulty in walking, not elsewhere classified; E78.5 Hyperlipidemia, unspecified; Z87.891 Personal history of nicotine dependence; Z79.899 Other long term (current) drug therapy; G47.33 Obstructive sleep apnea (adult) (pediatric); M99.03 Segmental and somatic dysfunction of lumbar region; M99.02 Segmental and somatic dysfunction of thoracic region; R06.02 Shortness of breath; Z86.718 Personal history of other venous thrombosis and embolism
CPT/HCPCS: 63047; 00630; 36415; 72020; 76000; 80048; 82962; 83735; 85025; 85027; 86703; 86706; 86708; 86803; 86850; 86900; 86901; 87077; 87081; 93005; 94668; 96365; 96366; 96375; 96376; 97161; 99221; J7120; A4216; G0378; J2405; J3475

== ENCOUNTER → 2023-12-11 | Outpatient (CLI) | payer BC, SELFPAY ==
[2023-12-11 12:36] LABS: Microalbumin,Random Urine 7.4 mg/L (NO RANGE EST.); Microalbumin:Creatinine Ratio 12.8 mg/g CRE (<30 mg/g CRE); Protein, Urine (Random) 11.9 mg/dL (<11.9); Protein:Creat Ratio 205 mg/g CRE (0-200)
[2023-12-11 13:23] LABS: AST(SGOT) 18 U/L (15-37); Alanine Aminotransfer ALT/SGPT 29 U/L (16-61); Cholesterol 176 mg/dL (200); High Density Lipoprotein 50 mg/dL; PSA,Total - Annual Screen 2.06 ng/mL (0.00-4.00); Triglycerides 240 mg/dL; Very Low Density Lipoprotein 48 mg/dL (5-40)
== END | disposition home or self-care (01) ==
LOC: MTLAB 10:47
PROVIDERS: PCP Family Medicine; Referring Provider Family Medicine; Visit Provider Family Medicine
DX: I10 Essential (primary) hypertension (principal); E78.5 Hyperlipidemia, unspecified; Z12.5 Encounter for screening for malignant neoplasm of prostate
CPT/HCPCS: 36415; 80061; 82043; 82570; 84153; 84156; 84443; 84450; 84460; G0103

== ENCOUNTER → 2024-08-24 | Outpatient (CLI) | payer MEDICARE, OTHER, SELFPAY ==
--- NOTE | 2024-08-24 09:44 | US_ITS ---
PROCEDURE: HEAD/NECK SOFT TISSUE 08/24/2024. Patient states he has had this lumps in childhood although recent fall caused to increase in size. REASON FOR EXAM: SCALP MASS TECHNIQUE: HEAD/NECK SOFT TISSUE COMPARISON: None FINDINGS: The palpable lump corresponds to a 1.5 cm 1.3 cm x 0.5 cm well-defined hypoechoic nodule just deep to the scalp. This may represent a hematoma. Targeted aspiration recommended for further evaluation. US/Head/Neck Soft Tissue IMPRESSION: The palpable lump corresponds to a 1.5 cm x 1.3 cm x 0.5 cm well-defined hypoec hoic nodule just deep to the scalp. Tissue diagnosis recommended. [facility]
--- NOTE | 2024-08-24 09:44 | US_ITS ---
PROCEDURE: HEAD/NECK SOFT TISSUE 08/24/2024. Patient states he has had this lumps in childhood although recent fall caused to increase in size. REASON FOR EXAM: SCALP MASS TECHNIQUE: HEAD/NECK SOFT TISSUE COMPARISON: None FINDINGS: The palpable lump corresponds to a 1.5 cm 1.3 cm x 0.5 cm well-defined hypoechoic nodule just deep to the scalp. This may represent a hematoma. Targeted aspiration recommended for further evaluation. US/Head/Neck Soft Tissue IMPRESSION: The palpable lump corresponds to a 1.5 cm x 1.3 cm x 0.5 cm well-defined hypoec hoic nodule just deep to the scalp. Tissue diagnosis recommended. Reading [facility]
--- OUTSIDE RECORDS SUMMARY | 2024-08-24 19:50 | XMS RPT_ITS | CCD ---
Author Organization [facility] Care Team Providers Care Mission Analyst Name Role Phone Dr. Noreen Katz Primary Care Provider [phone] Benedict Gandhi Attending Provider [phone] Noreen Katz Primary Care Provider Jamia Rios Attending Provider Dr. Noreen Valentin Referring Provider [phone] Benedict Gandhi Attending Provider [phone] Noreen Katz Primary Care Provider Jamia Rios Attending Provider Dr. Noreen Valentin Referring Provider [phone] Benedict Gandhi Attending Provider [phone] Nik DIRECTOR HOME, DIRECTOR HOMEHimanshu Iraheta Attending Provider Dr. Noreen Katz Primary Care Provider Dr. Noreen Katz Referring Provider [phone] Gallo DIRECTOR HOME, DIRECTOR HOME-Sintia Verduzco Attending Provider Dr. Noreen Katz Primary Care Provider Dr. Noreen Katz Referring Provider [phone] Guillermo Arceo Attending Provider [phone] Benedict Gandhi Attending Provider [phone] Benedict Gandhi Attending Unavailable Noreen Katz Primary Care Unavailable Noreen Katz Referring Unavailable Noreen Katz Primary Care Unavailable Noreen Katz Attending Unavailable Noreen Katz Referring Unavailable Noreen Katz Primary Care Unavailable McMorrow Michael SCHWARTZ Attending Unavailable McMorrow Michael SCHWARTZ Referring Unavailable Noreen Katz Primary Care Unavailable Noreen Katz Referring Unavailable Aashish Beavers Attending Unavailable Allergies Allergy Classification Reported Allergen(s) Allergy Type Date of Onset Reaction(s) Facility (7 sources) Shellfish; Translations: [shellfish derived] Allergy to substance 07-19-2019 Other [facility] Medications Current Medications Medication Drug Class(es) Dates Sig (Normalized) Sig (Original) amLODIPine 10 mg oral tablet (20 sources) Dihydropyridine Calcium Channel Mirela Start: 04-02-2022 End: 04-02-2022 take 10 mg by mouth once daily Amlodipine Active 10 MG PO DAILY April 02, 2022 12:59pm Start: 03-26-2022 End: 04-02-2022 take 5 mg by mouth once daily Amlodipine Discontinued 5 MG PO DAILY March 26, 2022 12:00am April 02, 2022 12:55pm etodolac 500 mg oral tablet (2 sources) Nonsteroidal Anti-inflammatory Drug Start: 02-23-2023 take 500 mg by mouth twice daily Etodolac Active 500 MG PO TWICE A DAY February 23, 2023 12:00am Do not take in conjunction with other NSAID. Tylenol is okay. hydroCHLOROthiazide 25 mg oral tablet (20 sources) Thiazide Diuretic Start: 04-02-2022 End: 04-02-2022 take 25 mg by mouth once daily Hydrochlorothiazide Active 25 MG PO DAILY April 02, 2022 12:59pm Start: 07-19-2019 End: 04-02-2022 take 12.5 mg by mouth once daily Hydrochlorothiazide Discontinued 12.5 MG PO DAILY July 18, 2019 11:00pm April 02, 2022 12:56pm Multivitamin,Jj-Dtde-Rbysxxd s (Therems-M) 1 TABLET tablet (10 sources) Start: 06-21-2013 take 1 tablet by mouth once daily Multivitamin,Dx-Vkiv-Ungnfcam (Therems-M) 1 TABLET tablet Active 1 TABLET PO DAILY June 21, 2013 7:45am Start: 06-21-2013 End: 03-26-2022 take 1 tablet by mouth once daily Multivitamin,Eg-Znlb-Aooeapyl (Therems-M ) 1 TABLET tablet Discontinued 1 TABLET PO DAILY June 21, 2013 12:00am March 26, 2022 3:32pm Start: 06-21-2013 End: 03-26-2022 take 1 tablet by mouth once daily Multivitamin,Mc-Phgr-Ehxnwpyn (Therems-M ) 1 TABLET tablet Discontinued 1 TABLET PO DAILY June 20, 2013 11:00pm March 26, 2022 2:32pm Oral Appliace (4 sources) Start: 06-16-2022 Oral Appliace Active 0 .ROUTE .MEDSUPPLY June 15, 2022 11:00pm As directed rosuvastatin calcium 20 mg oral tablet (20 sources) HMG-CoA Reductase Inhibitor Start: 02-23-2023 take 20 mg by mouth once daily Rosuvastatin Active 20 MG PO DAILY February 23, 2023 12:00am Start: 03-26-2022 End: 09-17-2022 take 20 mg by mouth once daily Rosuvastatin Discontinu ed 20 MG PO DAILY March 26, 2022 12:00am September 17, 2022 12:03pm Start: 06-21-2013 End: 03-26-2022 take 1 tablet by mouth once daily Rosuvastatin (Crestor) 5 MG tablet Discontinued 5 MG PO DAILY June 20, 2013 11:00pm March 26, 2022 2:32pm Completed/Discontinued Medications Medication Drug Class(es) Dates Sig (Normalized) Sig (Original) acetaminophen 325 mg / HYDROcodone bitartrate 5 mg oral tablet (10 sources) Opioid Agonist Start: 03-14-2018 End: 03-17-2018 take 1 tablet by mouth every six hours as needed Hydrocodone-Acetamin ophen Discontinued 1 TABLET PO EVERY 6 HOURS NEEDED 6 3 March 14, 2018 12:00am March 17, 2018 12:09am aspirin 81 mg oral tablet (8 sources) Platelet Aggregation Inhibitor, Nonsteroidal Anti-inflammatory Drug Start: 04-02-2022 End: 09-17-2022 take 81 mg by mouth once daily Aspirin Discontinued 81 MG PO DAILY April 02, 2022 12:00am September 17, 2022 12:03pm cefadroxil 500 mg oral capsule (10 sources) Cephalosporin Antibacterial Start: 07-19-2019 End: 07-26-2019 take 500 mg by mouth twice daily Cefadroxil Discontinued 500 MG PO TWICE A DAY 14 July 18, 2019 11:00pm July 25, 2019 11:02pm cyclobenzaprine hydrochloride 10 mg oral tablet (4 sources) Muscle Relaxant Start: 01-03-2023 End: 02-23-2023 take 10 mg by mouth three times daily Cyclobenzaprine Discontinued 10 MG PO THREE TIMES A DAY January 03, 2023 12:00am February 23, 2023 2:54pm lisinopril 10 mg oral tablet (16 sources) Angiotensin Converting Enzyme Inhibitor Start: 04-02-2022 End: 02-23-2023 take 10 mg by mouth once daily Lisinopril Discontinued 10 MG PO DAILY April 02, 2022 12:59pm February 23, 2023 2:55pm naproxen 500 mg oral tablet (4 sources) Nonsteroidal Anti-inflammatory Drug Start: 01-03-2023 End: 02-23-2023 take 1 tablet by mouth twice daily Naproxen (Naprosyn) 500 mg tablet Discontinued 500 MG PO TWICE A DAY January 03, 2023 12:00am February 23, 2023 2:55pm Vit C,V-Ki-Waykp-Lutein- Zeaxan (Preservision Areds-2) 250-90-40-1 mg capsule (8 sources) Start: 03-26-2022 End: 02-23-2023 Vit C,E-Kw-Ahfck-Lutein- Zeaxan (Preservision Areds-2) 250-90-40-1 mg capsule Discontinued 2 TABLET PO DAILY March 26, 2022 12:00am February 23, 2023 2:55pm Start: 03-26-2022 Vit C,E-Zn-Motorcoach Operator re-Ocjzij-Yncskf (Preservision Areds-2) 250-90-40-1 mg capsule Active 2 TABLET PO DAILY March 26, 2022 1:00am Start: 03-26-2022 Vit C,E-Zn-Motorcoach Operator qt-Flmseh-Qbiqko (Preservision Areds-2) 250-90-40-1 mg capsule Active 2 TABLET PO DAILY March 26, 2022 12:00am Problems Problem Classification Problem Date Documented Date Episodic/Chronic Coronary atherosclerosis and other heart disease (8 sources) Preinfarction syndrome; Translations: [Unstable angina] 03-26-2022 Chronic Disorders of lipid metabolism (16 sources) Hyperlipidemia; Translations: [Hyperlipidemia, unspecified] 03-25-2022 Chronic Esophageal disorders (10 sources) Gastroesophageal reflux disease; Translations: [Gastro-esophageal reflux disease without esophagitis] 08-28-2017 Chronic Essential hypertension (17 sources) Hypertensive disorder; Translations: [Essential (primary) hypertension] Onset: 01-01-2024 03-25-2022 Chronic Immunizations and screening for infectious disease (10 sources) Requires tetanus and diphtheria vaccination; Translations: [Encounter for immunization] 07-20-2019 Episodic Nonspecific chest pain (16 sources) Chest pain; Translations: [Chest pain, unspecified] 08-28-2017 Episodic Open wounds of extremities (10 sources) Puncture wound of middle finger of left hand; Translations: [Puncture wound with foreign body of left middle finger without damage to nail, initial encounter] 07-20-2019 Episodic Other lower respiratory disease (8 sources) Dyspnea on exertion; Translations: [Other forms of dyspnea] 03-26-2022 Episodic Other skin disorders (1 source) Localized swelling, mass and lump, head; Translations: [Localized swelling, mass and lump, head] Onset: 08-18-2024 Episodic Residual codes; unclassified (6 sources) Obstructive sleep apnea syndrome; Translations: [Obstructive sleep apnea (adult) (pediatric)] 05-14-2022 Chronic Residual codes; unclassified (2 sources) Obstructive sleep apnea (adult) (pediatric); Translations: [Obstructive sleep apnea (adult)(pediatric)] 05-14-2022 Chronic Retinal detachments; defects; vascular occlusion; and retinopathy (10 sources) Degenerative disorder of macula ; Translations: [Unspecified macular degeneration] 03-25-2022 Chronic Spondylosis; intervertebral disc disorders; other back problems (6 sources) Radiculopathy, lumbar region; Translations: [Thoracic or lumbosacral neuritis or radiculitis, unspecified] 02-23-2023 Episodic Results Test Name Value Interpretation Reference Range Facility AST(SGOT)on 12-11-2023 AST [Catalytic activity/Vol] 18 U/L Normal 15-37 [facility] Comment on above: Order Comment: Order Date: 12/11/23 Order Info: 80877-9 - LIPID Order Info: 192 - AST Order Info: 1742-6 - ALT Order Info: 3015-04 - TSH Order Info: 1 - PSA Performed By: #### L 501.4100, L500.4100, L502.0250, L501.4405, L501.9520 #### [facility] [address] [place], [address] Alanine Aminotransferas (SGP T)on 12-11-2023 ALT [Catalytic activity/Vol] 29 U/L Normal 16-61 [facility] Comment on above: Order Comment: Order Date: 12/11/23 Order Info: [id number] - LIPID Order Info: 1919-09 - AST Order Info: 1741-07 ALT Order Info: 3015-04 - TSH Order Info: 2856-02 - PSA Performed By: #### L 501.4100, L500.4100, L502.0250, L501.4405, L501.9520 #### [facility] [address] [place], [address] Lipid Profileon 12-11-2023 Cholesterol [Mass/Vol] 176 mg/dL Normal 200 [facility] Comment on above: Order Comment: Order Date: 12/11/23 Order Info: 43251-9 - LIPID Order Info: 1919-09 - AST Order Info: 1741-07 ALT Order Info: 3015-04 - TSH Order Info: 2856-02 - PSA Result Comment: <200 mg/dL Desirable 200-240 mg/dL Borderline >240 mg/dL High Risk Performed By: #### L 501.4100, L500.4100, L502.0250, L501.4405, L501.9520 #### [facility] [address] [place], [address] Cholesterol in HDL [Mass/Vol] 50 mg/dL Normal [facility] Comment on above: Order Comment: Order Date: 12/11/23 Order Info: [id number] - LIPID Order Info: 1919-09 - AST Order Info: 1741-07 - ALT Order Info: 3015-04 - TSH Order Info: 2857-1 - PSA Result Comment: The drugs N-Acetylcysteine and Metamizole may falsely depress this assay. Reference Range HDL <40 mg/dL Low HDL Cholesterol HDL >or= 60 mg/dL High HDL Cholesterol Performed By: #### L 501.4100, L500.4100, L502.0250, L501.4405, L501.9520 #### [facility] [address] [place], [address] Cholesterol in LDL [Mass/Vol] 78 mg/dL Normal 0-130 [facility] Comment on above: Order Comment: Order Date: 12/11/23 Order Info: 34412-1 - LIPID Order Info: 1919-09 - AST Order Info: 1741-07 ALT Order Info: 3015-04 - TSH Order Info: 2856-02 - PSA Performed By: #### L 501.4100, L500.4100, L502.0250, L501.4405, L501.9520 #### [facility] [address] [place], [address] Cholesterol in VLDL [Mass/Vol] 48 mg/dL High 5-40 [facility] Comment on above: Order Comment: Order Date: 12/11/23 Order Info: 36270-9 - LIPID Order Info: 1919-09 AST Order Info: 1741-07 ALT Order Info: 3015-04 - TSH Order Info: 2856-02 - PSA Performed By: #### L 501.4100, L500.4100, L502.0250, L501.4405, L501.9520 #### [facility] [address] [place], [address] Triglyceride [Mass/Vol] 240 mg/dL High [facility] Comment on above: Order Comment: Order Date: 12/11/23 Order Info: 88437-6 - LIPID Order Info: 1919-09 - AST Order Info: 1741-07 ALT Order Info: 3 - TSH Order Info: 2856-02 - PSA Result Comment: The drugs N-Acetylcysteine and Metamizole may falsely depress this assay. Serum Triglycerides Reference Interval Normal <150 mg/dL Borderline high 150 - 199 mg/dL High 200 - 499 mg/dL Very High > or = 500 mg/dL Performed By: #### L 501.4100, L500.4100, L502.0250, L501.4405, L501.9520 #### [facility] [address] [place], [address] Microalb:Creat Ratio,Random URon 12-11-2023 MALB:CRE 12.8 mg/g CRE Normal <30 mg/g CRE [facility] Comment on above: Order Comment: Order Date: 12/11/23 Order Info: 0779-1 - MIACRE Performed By: #### L 501.4100, L500.4100, L502.0250, L501.4405, L501.9520 #### [facility] [address] [place], [address] MICROALBUMIN,UR 7.4 mg/L Normal NO RANGE EST. [facility] Comment on above: Order Comment: Order Date: 12/11/23 Order Info: 0779-1 - MIACRE Performed By: #### L 501.4100, L500.4100, L502.0250, L501.4405, L501.9520 #### [facility] [address] [place], [address] PSA,Total - Annual Screenon 12-11-2023 PSA,TOT SCREEN 2.06 ng/mL Normal 0.00-4.00 [facility] Comment on above: Order Comment: Order Date: 12/11/23 Order Info: 92300-5 - LIPID Order Info: 1920-8 - AST Order Info: 1742-6 - ALT Order Info: 3016-3 - TSH Order Info: 2857-1 - PSA Result Comment: This test was performed using the TPSA assay method for the [employer] chemistry system. Values obtained with different assay methods cannot be used interchangably. When changing PSA assays in the course of monitoring a patient, additional sequential testing should be carried out to confirm baseline values. Performed By: #### L 501.9910 #### [facility] [address] [place], [address] Protein+Creatinine Ratio,Uri neon 12-11-2023 PROT:CRE RATIO 205 mg/g CRE High 0-200 [facility] Comment on above: Order Comment: Order Date: 12/11/23 Order Info: 0779-1 - MIACRE Performed By: #### L 501.0900 #### [facility] [address] [place], [address] Protein (U) [Mass/Vol] 11.9 mg/dL High <11.9 [facility] Comment on above: Order Comment: Order Date: 12/11/23 Order Info: 0779-1 - MIACRE Performed By: #### L 501.0900 #### [facility] [address] [place], [address] UR CREAT 58.00 mg/dL Normal NO RANGE EST. [facility] Comment on above: Order Comment: Order Date: 12/11/23 Order Info: 0779-1 - MIACRE Performed By: #### L 501.0900 #### [facility] [address] [place], [address] Thyroid Stim Hormone (TSH)on 12-11-2023 TSH 1.860 uIU/mL Normal 0.358-3.740 [facility] Comment on above: Order Comment: Order Date: 12/11/23 Order Info: 34038-4 - LIPID Order Info: 1920-8 - AST Order Info: 1742-6 - ALT Order Info: 3016-3 - TSH Order Info: 2857-1 - PSA Performed By: #### L 501.4100, L500.4100, L502.0250, L501.4405, L501.9520 #### [facility] [address] [place], [address] Cardiology Visit Reporton Cardiology Visit Report [facility] [address] [place] [address] OFFICE VISIT Date of Service: 11/05/23 MR#: [id number] Acct: [id number] Name: DAI REYES Rep #: [id number] 15 : 1955 Provider: Dr. Benedict Gandhi MD Age/Sex: 68/M Location: [facility] Status: Signed HPI HPI History of Present Illness Details: Pleasant 68-year-old man with a history of hypertension hyperlipidemia who approximately a year ago developed chest discomfort while on a trip to [place]. It had apparently been getting worse. It culminated in a cardiac catheterization in March 2022 demonstrating nonobstructive coronary arteries and preserved ejection fraction. He had still been having some of this discomfort especially in the cold weather. He does not have it with usual activity. Medical therapy was recommended. He has continued the same. He tells me that you have taken him off his lipid-lowering medication. He states his chest pain is improved but remains. He denies palpitations. He denies bilateral lower extremity edema. He denies claudication. He denies shortness of breath with activity, shortness of breath at rest, orthopnea, or PND. He denies chronic cough. He denies significant, sudden weight gain. He denies lightheadedness, dizziness, near-syncope, or syncope. He denies blood in urine, blood in stool, or epistaxis. He denies fever with chills. He denies myalgia. He denies fatigue. His exercise level has remained stable. 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 Accompanied by: Self Is patient in pain?: No Allergies shellfish derived Allergy (Verified 11/05/23 09:18) Other Medications ???Medication ???Instructions ???Recorded ???Confirmed ???Type hydrochlorothiazide 25 mg tablet 25 mg PO DAILY #90 tabs 04/02/22 11/05/23 Rx Oral Appliace #1 ea 06/16/22 10/15/23 Rx mv-mn-folic 200 mcg-vit K 15 2 cap PO DAILY 04/14/23 11/05/23 History mcg-lutein 5 mg-zeaxanthin 1 mg capsule (PreserVision AREDS 2 Plus Multivit) amlodipine 10 mg tablet 10 mg PO QHS 06/30/23 11/05/23 History lisinopril 10 mg tablet 10 mg PO DAILY 06/30/23 11/05/23 History multivitamin with iron-mineral 2 tab PO DAILY 06/30/23 11/05/23 History ranolazine 500 mg tablet,extended 500 mg PO BID #60 tabs 11/05/23 11/05/23 Rx release,12 hr rosuvastatin 10 mg tablet 10 mg PO QDAY #60 tabs 11/05/23 11/05/23 Rx Have you fallen in the past year?: No PFSH Medical History Wears glasses Alcohol use DVT (deep venous thrombosis) Migraine headache Injury of head and neck Syncope Shortness of breath on exertion Former smoker Leg cramps History of pain when walking Cardiology follow-up encounter History of echocardiogram PHILIPPE (dyspnea on exertion) Hyperlipidemia Essential hypertension Unstable angina MARIO (obstructive sleep apnea) Macular degeneration Surgical History Hx of cataract surgery (11/02/23) History of back surgery (07/14/23) Hx of colonoscopy Hx of cardiac cath Family History Father Cancer Social History Smoking Status: Former smoker how long ago did patient quit smokin years ago alcohol intake: current alcohol intake frequency: 0-2 drinks per day Alcohol type: beer substance use type: does not use caffeine: Yes Type: coffee Number of servings: 3 ROS Const Const: Negative for fatigue, weakness, headache(s), daytime sleepiness or difficulty sleeping ENT ENT: Negative for headache(s), dizziness or Nosebleed/epistaxis Cardio Chest Pain: Yes Frequency: other (when cold outside) Character: sharp Onset: exercise Location: mid sternal Duration: brief Exacerbation: activity Relieving: rest Palpitations: No Edema: None Resp Respiratory: Negative for SOB with activity, SOB at rest, SOB orthopnea SOB lying down or Cough GI GI: Negative nausea, vomiting or heartburn Neuro Neuro: Negative for dizziness, lightheadedness, near syncope, headache(s) or weakness Endo Endo: Negative for fatigue Cardiology Exam Const Appearance: cooperative, healthy appearing, comfortable and no acute distress Nutritional Appearance: well nourished and overweight Orientation: alert, awake and oriented x3 Head Head: normal to inspection Ears: hearing grossly normal bilaterally Nose: external nose normal Face and Sinus: face symmet (more content not included)... Normal [facility] Orthopedic Visit Reporton Orthopedic Visit Report [facility] [address] [place] [address] OFFICE VISIT Date of Service: 10/15/23 MR#: [id number] Acct: [id number] Name: DAI REYES Rep #: [id number] 04 : 1955 Provider: Dr. Aashish Beavers MD Age/Sex: 68/M Location: [facility] Status: Signed Intake Vital Signs 07/14/23 11:24 Height 5 ft 7 in Intake Visit Reasons: LUMBAR SPINE Chief Complaint: 3 month post-op Accompanied by: Self Allergies shellfish derived Allergy (Verified 10/15/23 08:52) Other Medications ???Medication ???Instructions ???Recorded ???Confirmed ???Type hydrochlorothiazide 25 mg tablet 25 mg PO DAILY #90 tabs 04/02/22 10/15/23 Rx Oral Appliace #1 ea 06/16/22 10/15/23 Rx mv-mn-folic 200 mcg-vit K 15 2 cap PO DAILY 04/14/23 10/15/23 History mcg-lutein 5 mg-zeaxanthin 1 mg capsule (PreserVision AREDS 2 Plus Multivit) amlodipine 10 mg tablet 10 mg PO QHS 06/30/23 10/15/23 History lisinopril 10 mg tablet 10 mg PO DAILY 06/30/23 10/15/23 History multivitamin with iron-mineral 2 tab PO DAILY 06/30/23 10/15/23 History meloxicam 15 mg tablet 15 mg PO DAILY 30 days #30 tabs 07/15/23 10/15/23 Rx methocarbamol 500 mg tablet 750 mg (1.5 x 500 mg) PO TID PRN 07/15/23 10/15/23 Rx Pain/spasms 5 days #20 tabs sennosides 8.6 mg-docusate sodium 2 tab PO BID PRN constipation 7 07/15/23 10/15/23 Rx 50 mg tablet (Stool days #28 tabs Softener-Stimulant Laxative) Have you fallen in the past year?: No PFSH Medical History Wears glasses Alcohol use DVT (deep venous thrombosis) Migraine headache Injury of head and neck Syncope Shortness of breath on exertion Former smoker Leg cramps History of pain when walking Cardiology follow-up encounter History of echocardiogram PHILIPPE (dyspnea on exertion) Hyperlipidemia Essential hypertension Unstable angina MARIO (obstructive sleep apnea) Macular degeneration Surgical History Hx of colonoscopy Hx of cardiac cath Family History Father Cancer Social History Smoking Status: Former smoker how long ago did patient quit smokin years ago alcohol intake: current alcohol intake frequency: 0-2 drinks per day Alcohol type: beer substance use type: does not use caffeine: Yes Type: coffee Number of servings: 3 HPI LUMBAR SPINE Details: This documentation accurately reflects the service provided and the decisions made by me, Dr. Aashish Beavers MD 10/15/23 0848. Part of today???s visit was documented by Mago PASCAL, acting as scribe. DAI REYES is a 68 year old M here today for s/p L4-5 open laminectomy DOS 07/14/2023. He states that he is doing well and that his leg symptoms are resolved. He does have some pain on the right aide of his lower back but only notices it when he does too much activity. Dai has some residual right paraspinal pain but nothing as bad as it was before surgery. He has returned to near normal activity. He is hoping to start physical therapy through his membership at [employer] next week. Ortho Exam General General: Yes no acute distress Neurologic: Yes alert and Yes oriented x3 Spine SPINE TESTING CERVICAL THORACIC LUMBAR Musculoskeletal Strength 0=absent - 5=normal Details: Examination the back shows incision well-healed. Neurologic evaluation of lower extremity shows 5 x 5 power normal shows normal sensations in all dermatomes. Coding Level of Care Code Off vis,est,level 3 Diagnoses Status post laminectomy Z98.890 Time Spent (min) 25 Assessment and Plan Assessment and Plan (1) Status post laminectomy: Status: Acute Plan Patient is 3-month status post L4-5 laminectomy. He is now undergone no longer restrictions of bending lifting twisting. He may start physical therapy as tolerated. I reviewed his preoperative MRI. He may have some residual paraspinal pain from facet arthrosis which should likely improve with time. He may now follow-up with us on a as needed basis if he develops new or worsening symptoms. Patient was in agreement. Plan Details Goals Barriers: Goals Decrease spasm Decrease inflammation Improve sleep Decrease pain Barriers Stenosis Clinical Quality Measures Falls Risk Screening/Assistive Devices Have you fallen in the past year?: No 10/15/23 0943 Date Aashish Beavers MD Cosigner Signature: Date (if applicable) CC: Dr. Noreen Katz MD Normal [facility] Absolute lymphocyte countOrd ered By: Dr. Katz on 05-26-2022 Lymphocytes Auto (Unsp spec) [#/Vol] 1.71 10*3/uL 0.83-4.51 [facility] Basophil percentageOrdered B y: Dr. Katz on 05-26-2022 Basophils/100 WBC (Bld) 0.8 % 0-1 [facility] Chloride [Moles/Vol] 105 mmol/L 98-107 [facility] Cholesterol [Mass/Vol] 208 mg/dL <200 [facility] Comment on above: <200 mg/dL Desirable 200-240 mg/dL Borderline >240 mg/dL High Risk Eosinophils/100 WBC (Bld) 2.2 % 0-5 [facility] Glucose [Mass/Vol] 188 mg/dL 74-106 [facility] Comment on above: Fasting Glucose resu lt greater than or equal to 126 mg/dL suggests DIABETES MELLITUS per A.D.A. criteria. Neutrophils (Bld) [#/Vol] 2.7 10*3/uL 2.0-7.7 [facility] Neutrophils/100 WBC (Bld) 54.3 % 47-70 [facility] Potassium [Moles/Vol] 3.8 mmol/L 3.5-5.1 [facility] Sodium [Moles/Vol] 135 mmol/L 136-145 [facility] Testosterone [Mass/Vol] 315.18 ng/dL [facility] Comment on above: CENTRAL 90% REFERENC E RANGES MALE AGE <50 197.44 - 669.58 ng/dL MALE AGE > or = 50 187.72 - 684.19 ng/dL FEMALE AGE <50 8.38 - 35.01 ng/dL FEMALE AGE > or = 50 <7.00 - 35.92 ng/dL Effective as of 09/04/20 Triglyceride [Mass/Vol] 153 mg/dL <199 [facility] Comment on above: The drugs N-Acetylcy steine and Metamizole may falsely depress this assay.Serum Triglycerides Reference Interval Normal <150 mg/dL Borderline high 150 - 199 mg/dL High 200 - 499 mg/dL Very High > or = 500 mg/dL WBC (Bld) [#/Vol] 4.9 10*3/uL 4.4-11.0 [facility] Blood erythrocytes count (nu mber/volume)Ordered By: Dr. Katz on 05-26-2022 RBC (Bld) [#/Vol] 4.29 10*6/uL 4.6-6.2 [facility] Blood hemoglobin measurement (mass/volume)Ordered By: Dr. Katz on 05-26-2022 Hemoglobin (Bld) [Mass/Vol] 13.7 g/dL 13.0-16.5 [facility] Blood lymphocytes/100 leukoc ytesOrdered By: Dr. Katz on 05-26-2022 Lymphocytes/100 WBC (Bld) 34.8 % 19-41 [facility] Blood monocytes/100 leukocyt esOrdered By: Dr. Katz on 05-26-2022 Monocytes/100 WBC (Bld) 7.7 % 0-10 [facility] Blood platelet mean volumeOr dered By: Dr. Katz on 05-26-2022 Platelet mean volume (Bld) [Entitic vol] 11.4 fL 6.2-12.0 [facility] Determination of erythrocyte mean corpuscular volume (MCV)Ordered By: Dr. Katz on 05-26-2022 MCV (RBC) [Entitic vol] 89.5 fL 80-94 [facility] Erythrocyte sedimentation ra teOrdered By: Dr. Katz on 05-26-2022 ESR (Bld) [Velocity] 10 mm/h 0-20 [facility] Hematocrit Auto (Bld) [Volum e fraction]Ordered By: Dr. Katz on 05-26-2022 Hematocrit (Bld) [Volume fraction] 38.4 % 40-54 [facility] Laboratory - Chemistry and C hemistry - challengeOrdered By: Dr. Katz on 05-26-2022 ALT [Catalytic activity/Vol] 42 U/L 16-61 [facility] CO2 [Moles/Vol] 24.0 mmol/L 21.0-32.0 [facility] Urea nitrogen/Creatinine [Mass ratio] 12.6 mg/mg 10-20 [facility] Laboratory - Hematology and Cell countsOrdered By: Dr. Katz on 05-26-2022 Erythrocyte distribution width (RBC) [Entitic vol] 42.5 fL 35.1-43.9 [facility] Erythrocyte distribution width (RBC) [Ratio] 13.0 % 11.6-14.6 [facility] Immature granulocytes/100 WBC (Bld) 0.200 % 0.0-0.9 [facility] Comment on above: IG% - Immature Granu locytes (promyelocytes, myelocytes and metamyelocytes) > 1% indicates that a LEFT SHIFT is Present. MCH (RBC) [Entitic mass] 31.9 pg 27.0-32.0 [facility] Nucleated RBC/100 WBC (Bld) [Ratio] 0 % 0-5 [facility] MCHC Auto (RBC) [Mass/Vol]Or dered By: Dr. Katz on 05-26-2022 MCHC (RBC) [Mass/Vol] 35.7 g/dL 32-36 [facility] No Panel InformationOrdered By: Dr. Katz on 05-26-2022 Urine Microalbumin/Creatinine Ratio 13.0 mg/g CRE <30 [facility] Estimated GFR (MDRD) Amer 112 mL/min >60 [facility] Comment on above: GFR Calc Estimated GFR (MDRD) Non-Af Amer 93 mL/min >60 [facility] Comment on above: Non- GFR Calc Thyroid Stimulating Hormone (TSH) 1.85 uIU/mL 0.358-3.74 [facility] Platelets bldOrdered By: Dr. Katz on 05-26-2022 Platelets (Bld) [#/Vol] 236 10*3/uL 150-450 [facility] Serum or plasma calcium hector urement (mass/volume)Ordered By: Dr. Katz on 05-26-2022 Calcium [Mass/Vol] 8.6 mg/dL 8.5-10.1 [facility] Serum or plasma cholesterol in HDL measurement (mass/volume)Ordered By: Dr. Katz on 05-26-2022 Cholesterol in HDL [Mass/Vol] 48 mg/dL >40 [facility] Comment on above: The drugs N-Acetylcy steine and Metamizole may falsely depress this assay. Reference Range HDL <40 mg/dL Low HDL Cholesterol HDL >or= 60 mg/dL High HDL Cholesterol Serum or plasma cholesterol in VLDL measurement (mass/volume)Ordered By: Dr. Katz on 05-26-2022 Cholesterol in VLDL [Mass/Vol] 31 mg/dL 5-40 [facility] Serum or plasma creatinine m easurement (mass/volume)Ordered By: Dr. Katz on 05-26-2022 Creatinine [Mass/Vol] 0.87 mg/dL 0.70-1.30 [facility] Comment on above: The validity of the calculated GFR & GFRAA in patients over 70 years has not been determined. Clinical correlation is essential. Serum or plasma low density lipoprotein (LDL) cholesterol measurement (mass/volume)Ordered By: Dr. Katz on 05-26-2022 Cholesterol in LDL [Mass/Vol] 129 mg/dL 0-130 [facility] Serum or plasma urea nitroge n measurement (mass/volume)Ordered By: Dr. Katz on 05-26-2022 Urea nitrogen [Mass/Vol] 11 mg/dL 7-18 [facility] Thin prep Papanicolaou smear with manual screeningOrdered By: Dr. Katz on 05-26-2022 Thin prep Papanicolaou smear with manual screening 25.1 mg/L NO RANGE EST. [facility] Thin prep Papanicolaou smear with manual screening 25 U/L 15-37 [facility] Thin prep Papanicolaou smear with manual screening 6 5-15 [facility] Urine creatinine measurement (mass/volume)Ordered By: Dr. Ktaz on 05-26-2022 Creatinine (U) [Mass/Vol] 193.00 mg/dL NO RANGE EST. [facility] Whole blood hemoglobin A1c/t otal hemoglobin ratio (mass fraction)Ordered By: Dr. Katz on 05-26-2022 HbA1c (Bld) [Mass fraction] 5.5 % 3.8-5.6 [facility] Comment on above: Normal < 5.7 % Predi abetic 5.7 - 6.4 % Diabetic >or= 6.5 % Please note range changes. Absolute lymphocyte countOrd ered By: Dr. Gandhi on 03-26-2022 Lymphocytes Auto (Unsp spec) [#/Vol] 2.15 10*3/uL 0.83-4.51 [facility] Basophil percentageOrdered B y: Dr. Gandhi on 03-26-2022 Basophils/100 WBC (Bld) 0.5 % 0-1 [facility] Chloride [Moles/Vol] 104 mmol/L 98-107 [facility] Eosinophils/100 WBC (Bld) 2.5 % 0-5 [facility] Glucose [Mass/Vol] 111 mg/dL 74-106 [facility] Comment on above: Fasting Glucose resu lt from 100 to 125 mg/dL suggests IMPAIRED HOMEOSTASIS per A.D.A. criteria. Neutrophils (Bld) [#/Vol] 3.6 10*3/uL 2.0-7.7 [facility] Neutrophils/100 WBC (Bld) 55.2 % 47-70 [facility] Potassium [Moles/Vol] 4.0 mmol/L 3.5-5.1 [facility] Sodium [Moles/Vol] 140 mmol/L 136-145 [facility] WBC (Bld) [#/Vol] 6.4 10*3/uL 4.4-11.0 [facility] Blood erythrocytes count (nu mber/volume)Ordered By: Dr. Gandhi on 03-26-2022 RBC (Bld) [#/Vol] 4.75 10*6/uL 4.6-6.2 [facility] Blood hemoglobin measurement (mass/volume)Ordered By: Dr. Gandhi on 03-26-2022 Hemoglobin (Bld) [Mass/Vol] 15.1 g/dL 13.0-16.5 [facility] Blood lymphocytes/100 leukoc ytesOrdered By: Dr. Gandhi on 03-26-2022 Lymphocytes/100 WBC (Bld) 33.4 % 19-41 [facility] Blood monocytes/100 leukocyt esOrdered By: Dr. Gandhi on 03-26-2022 Monocytes/100 WBC (Bld) 8.1 % 0-10 [facility] Blood platelet mean volumeOr dered By: Dr. Gandhi on 03-26-2022 Platelet mean volume (Bld) [Entitic vol] 10.9 fL 6.2-12.0 [facility] Determination of erythrocyte mean corpuscular volume (MCV)Ordered By: Dr. Gandhi on 03-26-2022 MCV (RBC) [Entitic vol] 90.1 fL 80-94 [facility] Hematocrit Auto (Bld) [Volum e fraction]Ordered By: Dr. Gandhi on 03-26-2022 Hematocrit (Bld) [Volume fraction] 42.8 % 40-54 [facility] INR in Blood by Coagulation assayOrdered By: Dr. Gandhi on 03-26-2022 INR Coag (Bld) [Relative time] 1.1 {INR} [facility] Laboratory - Chemistry and C hemistry - challengeOrdered By: Dr. Gandhi on 03-26-2022 CO2 [Moles/Vol] 26.0 mmol/L 21.0-32.0 [facility] Urea nitrogen/Creatinine [Mass ratio] 17.4 mg/mg 10-20 [facility] Laboratory - CoagulationOrde red By: Dr. Gandhi on 03-26-2022 aPTT Coag (Bld) [Time] 26.4 s 24.1-36.2 [facility] PT Coag (PPP) [Time] 13.4 s 11.7-14.9 [facility] Laboratory - Hematology and Cell countsOrdered By: Dr. Gandhi on 03-26-2022 Erythrocyte distribution width (RBC) [Entitic vol] 43.9 fL 35.1-43.9 [facility] Erythrocyte distribution width (RBC) [Ratio] 13.2 % 11.6-14.6 [facility] Immature granulocytes/100 WBC (Bld) 0.300 % 0.0-0.9 [facility] Comment on above: IG% - Immature Granu locytes (promyelocytes, myelocytes and metamyelocytes) > 1% indicates that a LEFT SHIFT is Present. MCH (RBC) [Entitic mass] 31.8 pg 27.0-32.0 [facility] Nucleated RBC/100 WBC (Bld) [Ratio] 0 % 0-5 [facility] MCHC Auto (RBC) [Mass/Vol]Or dered By: Dr. Gandhi on 03-26-2022 MCHC (RBC) [Mass/Vol] 35.3 g/dL 32-36 [facility] No Panel InformationOrdered By: Dr. Gandhi on 03-26-2022 Estimated GFR (MDRD) Amer 113 mL/min >60 [facility] Comment on above: GFR Calc Estimated GFR (MDRD) Non-Af Amer 94 mL/min >60 [facility] Comment on above: Non- GFR Calc Platelets bldOrdered By: Dr. Gandhi on 03-26-2022 Platelets (Bld) [#/Vol] 232 10*3/uL 150-450 [facility] Serum or plasma calcium hector urement (mass/volume)Ordered By: Dr. Gandhi on 03-26-2022 Calcium [Mass/Vol] 9.5 mg/dL 8.5-10.1 [facility] Serum or plasma creatinine m easurement (mass/volume)Ordered By: Dr. Gandhi on 03-26-2022 Creatinine [Mass/Vol] 0.86 mg/dL 0.70-1.30 [facility] Comment on above: The validity of the calculated GFR & GFRAA in patients over 70 years has not been determined. Clinical correlation is essential. Serum or plasma urea nitroge n measurement (mass/volume)Ordered By: Dr. Gandhi on 03-26-2022 Urea nitrogen [Mass/Vol] 15 mg/dL 7-18 [facility] Thin prep Papanicolaou smear with manual screeningOrdered By: Dr. Gandhi on 03-26-2022 Thin prep Papanicolaou smear with manual screening 10 - [facility] Absolute lymphocyte counton 05-21-2021 Lymphocytes Auto (Unsp spec) [#/Vol] 1.73 10*3/uL 0.83-4.51 [facility] Work Phone: Basophil percentageon 2021 Basophils/100 WBC (Bld) 0.8 % 0-1 [facility] Work Phone: Chloride [Moles/Vol] 106 mmol/L 98-107 [facility] Work Phone: Cholesterol [Mass/Vol] 242 mg/dL <200 [facility] Work Phone: Comment on above: <200 mg/dL Desirable 200-240 mg/dL Borderline >240 mg/dL High Risk Eosinophils/100 WBC (Bld) 2.7 % 0-5 [facility] Work Phone: Glucose [Mass/Vol] 135 mg/dL 74-106 [facility] Work Phone: Comment on above: Fasting Glucose resu lt greater than or equal to 126 mg/dL suggests DIABETES MELLITUS per A.D.A. criteria. Neutrophils (Bld) [#/Vol] 3.0 10*3/uL 2.0-7.7 [facility] Work Phone: Neutrophils/100 WBC (Bld) 56.2 % 47-70 [facility] Work Phone: Potassium [Moles/Vol] 3.8 mmol/L 3.5-5.1 [facility] Work Phone: Sodium [Moles/Vol] 139 mmol/L 136-145 [facility] Work Phone: Testosterone [Mass/Vol] 419.06 ng/dL [facility] Work Phone: Comment on above: CENTRAL 90% REFERENC E RANGES MALE AGE <50 197.44 - 669.58 ng/dL MALE AGE > or = 50 187.72 - 684.19 ng/dL FEMALE AGE <50 8.38 - 35.01 ng/dL FEMALE AGE > or = 50 <7.00 - 35.92 ng/dL Effective as of 09/04/20 Triglyceride [Mass/Vol] 243 mg/dL [facility] Work Phone: Comment on above: The drugs N-Acetylcy steine and Metamizole may falsely depress this assay.Serum Triglycerides Reference Interval Normal <150 mg/dL Borderline high 150 - 199 mg/dL High 200 - 499 mg/dL Very High > or = 500 mg/dL WBC (Bld) [#/Vol] 5.3 10*3/uL 4.4-11.0 [facility] Work Phone: Blood erythrocytes count (nu mber/volume)on 05-21-2021 RBC (Bld) [#/Vol] 4.67 10*6/uL 4.6-6.2 [facility] Work Phone: Blood hemoglobin measurement (mass/volume)on 05-21-2021 Hemoglobin (Bld) [Mass/Vol] 14.5 g/dL 13.0-16.5 [facility] Work Phone: Blood lymphocytes/100 leukoc yteson 05-21-2021 Lymphocytes/100 WBC (Bld) 32.9 % 19-41 [facility] Work Phone: Blood monocytes/100 leukocyt eson 05-21-2021 Monocytes/100 WBC (Bld) 7.0 % 0-10 [facility] Work Phone: Blood platelet mean volumeon 05-21-2021 Platelet mean volume (Bld) [Entitic vol] 11.0 fL 6.2-12.0 [facility] Work Phone: Determination of erythrocyte mean corpuscular volume (MCV)on 05-21-2021 MCV (RBC) [Entitic vol] 88.4 fL 80-94 [facility] Work Phone: Erythrocyte sedimentation ra yo 05-21-2021 ESR (Bld) [Velocity] 8 mm/h 0-20 [facility] Work Phone: Hematocrit Auto (Bld) [Volum e fraction]on 05-21-2021 Hematocrit (Bld) [Volume fraction] 41.3 % 40-54 [facility] Work Phone: Laboratory - Chemistry and C hemistry - challengeon 05-21-2021 ALT [Catalytic activity/Vol] 56 U/L 16-61 [facility] Work Phone: CO2 [Moles/Vol] 28.0 mmol/L 21.0-32.0 [facility] Work Phone: Urea nitrogen/Creatinine [Mass ratio] 15.6 mg/mg 10-20 [facility] Work Phone: Laboratory - Hematology and Cell countson 05-21-2021 Erythrocyte distribution width (RBC) [Entitic vol] 42.5 fL 35.1-43.9 [facility] Work Phone: Erythrocyte distribution width (RBC) [Ratio] 13.1 % 11.6-14.6 [facility] Work Phone: Immature granulocytes/100 WBC (Bld) 0.400 % 0.0-0.9 [facility] Work Phone: Comment on above: IG% - Immature Granu locytes (promyelocytes, myelocytes and metamyelocytes) > 1% indicates that a LEFT SHIFT is Present. MCH (RBC) [Entitic mass] 31.0 pg 27.0-32.0 [facility] Work Phone: Nucleated RBC/100 WBC (Bld) [Ratio] 0 % 0-5 [facility] Work Phone: MCHC Auto (RBC) [Mass/Vol]on 05-21-2021 MCHC (RBC) [Mass/Vol] 35.1 g/dL 32-36 [facility] Work Phone: No Panel Informationon 05-21 Estimated GFR (MDRD) Amer 109 mL/min >60 [facility] Work Phone: Comment on above: GFR Calc Estimated GFR (MDRD) Non-Af Amer 90 mL/min >60 [facility] Work Phone: Comment on above: Non- GFR Calc Thyroid Stimulating Hormone (TSH) 2.19 uIU/mL 0.358-3.74 [facility] Work Phone: Platelets bldon 05-21-2021 Platelets (Bld) [#/Vol] 247 10*3/uL 150-450 [facility] Work Phone: Serum or plasma calcium hector urement (mass/volume)on 05-21-2021 Calcium [Mass/Vol] 9.1 mg/dL 8.5-10.1 [facility] Work Phone: Serum or plasma cholesterol in HDL measurement (mass/volume)on 05-21-2021 Cholesterol in HDL [Mass/Vol] 47 mg/dL [facility] Work Phone: Comment on above: The drugs N-Acetylcy steine and Metamizole may falsely depress this assay. Reference Range HDL <40 mg/dL Low HDL Cholesterol HDL >or= 60 mg/dL High HDL Cholesterol Serum or plasma cholesterol in VLDL measurement (mass/volume)on 05-21-2021 Cholesterol in VLDL [Mass/Vol] 49 mg/dL 5-40 [facility] Work Phone: Serum or plasma creatinine m easurement (mass/volume)on 05-21-2021 Creatinine [Mass/Vol] 0.90 mg/dL 0.70-1.30 [facility] Work Phone: Comment on above: The validity of the calculated GFR & GFRAA in patients over 70 years has not been determined. Clinical correlation is essential. Serum or plasma low density lipoprotein (LDL) cholesterol measurement (mass/volume)on 05-21-2021 Cholesterol in LDL [Mass/Vol] 146 mg/dL 0-130 [facility] Work Phone: Serum or plasma urea nitroge n measurement (mass/volume)on 05-21-2021 Urea nitrogen [Mass/Vol] 14 mg/dL 7-18 [facility] Work Phone: Thin prep Papanicolaou smear with manual screeningon 05-21-2021 Thin prep Papanicolaou smear with manual screening 23 U/L 15-37 [facility] Work Phone: Thin prep Papanicolaou smear with manual screening 5 5-15 [facility] Work Phone: Vital Signs Date Time Vital Sign Value Performing Clinician Faci leonelay 02-23-2023 14:53-0500 Body height 173.[address] Noreen Katz Work Phone: [facility] 02-23-2023 14:53-0500 Body mass index (BMI) [Ratio] 26.5 kg/m2 Dr. Noreen Katz Work Phone: [facility] 02-23-2023 14:53-0500 Body weight 80.[address] Noreen Katz Work Phone: [facility] 01-03-2023 16:55-0500 Diastolic blood pressure 58 mm[Hg] Dr. Noreen Katz Work Phone: [facility] 01-03-2023 16:55-0500 Heart rate 72 /min Dr. Noreen Katz Work Phone: 6([phone] [place] [address] 01-03-2023 16:55-0500 Respiratory rate 16 /min Dr. Noreen Katz Work Phone: [facility] 01-03-2023 16:55-0500 SaO2% (BldA) [Mass fraction] 99 % Dr. Noreen Katz Work Phone: [facility] 01-03-2023 16:55-0500 Systolic blood pressure 168 mm[Hg] Dr. Noreen Katz Work Phone: [facility] 01-03-2023 15:12-0500 Body height 172.[address] Noreen Katz Work Phone: [phone] [place] [address] 01-03-2023 15:12-0500 Body mass index (BMI) [Ratio] 28.1 kg/m2 Dr. Noreen Katz Work Phone: 3([phone] [place] [address] 01-03-2023 15:12-0500 Body temperature 98.5 [degF] Dr. Noreen Katz Work Phone: [facility] 01-03-2023 15:12-0500 Body weight 83.[address] Noreen Katz Work Phone: [phone] [place] [address] 09-17-2022 13:00-0400 Body mass index (BMI) [Ratio] 26.4 kg/m2 Dr. Noreen Katz Work Phone: 9([phone] [place] [address] 09-17-2022 13:00-0400 Body weight 78.[address] Noreen Katz Work Phone: [facility] 09-17-2022 13:00-0400 Diastolic blood pressure 77 mm[Hg] Dr. Noreen Katz Work Phone: 2([phone] [place] [address] 09-17-2022 13:00-0400 Heart rate 68 /min Dr. Noreen Katz Work Phone: [facility] 09-17-2022 13:00-0400 Respiratory rate 18 /min Dr. Noreen Katz Work Phone: [facility] 09-17-2022 13:00-0400 SaO2% (BldA) [Mass fraction] 100 % Dr. Noreen Katz Work Phone: [facility] 09-17-2022 13:00-0400 Systolic blood pressure 124 mm[Hg] Dr. Noreen Katz Work Phone: [facility] 05-14-2022 07:53-0400 Body height 172.[address] Noreen Katz Work Phone: [facility] 05-14-2022 07:53-0400 Body mass index (BMI) [Ratio] 27.3 kg/m2 Dr. Noreen Katz Work Phone: [facility] 05-14-2022 07:53-0400 Body temperature 97.6 [degF] Dr. Noreen Katz Work Phone: [facility] 05-14-2022 07:53-0400 Body weight 81.[address] Noreen Katz Work Phone: [facility] 05-14-2022 07:53-0400 Diastolic blood pressure 63 mm[Hg] Dr. Noreen Katz Work Phone: [facility] 05-14-2022 07:53-0400 Heart rate 52 /min Dr. Noreen Katz Work Phone: [facility] 05-14-2022 07:53-0400 Respiratory rate 18 /min Dr. Noreen Katz Work Phone: [facility] 05-14-2022 07:53-0400 SaO2% (BldA) [Mass fraction] 98 % Dr. Noreen Katz Work Phone: [facility] 05-14-2022 07:53-0400 Systolic blood pressure 145 mm[Hg] Dr. Noreen Katz Work Phone: [facility] 04-02-2022 10:22-0500 Body height 167.[address] Noreen Katz Work Phone: [facility] 04-02-2022 10:22-0500 Body weight 82.[address] Noreen Katz Work Phone: [facility] 04-01-2022 08:45-0500 Body mass index (BMI) [Ratio] 29.3 kg/m2 Dr. Noreen Katz Work Phone: [facility] 03-26-2022 14:23-0500 Body mass index (BMI) [Ratio] 29.3 kg/m2 Dr. Noreen Katz Work Phone: [facility] 03-26-2022 14:23-0500 Body weight 82.[address] Noreen Katz Work Phone: [facility] 03-26-2022 14:23-0500 Diastolic blood pressure 66 mm[Hg] Dr. Noreen Katz Work Phone: [facility] 03-26-2022 14:23-0500 Heart rate 50 /min Dr. Noreen Katz Work Phone: [facility] 03-26-2022 14:23-0500 Respiratory rate 18 /min Dr. Noreen Katz Work Phone: [facility] 03-26-2022 14:23-0500 Systolic blood pressure 148 mm[Hg] Dr. Noreen Katz Work Phone: [facility] 05-21-2021 10:31-0400 Body height 167.[address] Noreen Katz Work Phone: [facility] Work Phone: Encounters Encounter Date Encounter Type Care Provider Facility Start: 08-24-2024 ambulatory Noreen Katz Facility: [facility] Start: 12-11-2023 End: 12-11-2023 ambulatory Noreen Katz Facility:[facility] Start: 11-05-2023 End: 11-05-2023 ambulatory Benedict Gandhi Facility:[facility] Start: 10-15-2023 End: 10-15-2023 ambulatory Noreen Katz Facility:[facility] Start: 2023 End: [address] Noreen Katz Work Phone: [facility] Work Phone: Start: 2023 End: [address] Noreen Katz Work Phone: [facility] Work Phone: Start: 03-18-2023 End: 03-18-[address] Noreen Katz Work Phone: [facility] Work Phone: Start: 03-10-[address] Noreen cohen Work Phone: [facility] Work Phone: Start: 03-09-2023 End: 03-09-[address] Noreen Katz Work Phone: [facility] Work Phone: Start: 03-09-2023 End: 03-09-[address] Noreen Katz Work Phone: [facility] Work Phone: Start: 02-23-2023 End: 02-23-[address] Noreen Katz Work Phone: [facility] Work Phone: Start: 01-07-2023 End: 01-07-[address] Noreen Katz Work Phone: [facility] Work Phone: Start: 01-07-2023 End: 01-07-[address] Noreen Katz Work Phone: [facility] Work Phone: Start: 01-03-2023 End: 01-03-2023 Emergency department patient visit Dr. Noreen Katz Work Phone: [facility]Emergency Department Work Phone: Start: 09-17-2022 End: 09-17-[address] Noreen Katz Work Phone: [facility] Work Phone: Start: 06-03-2022 End: 06-03-[address] Noreen Katz Work Phone: [facility] Work Phone: Start: 06-03-2022 End: 06-03-[address] Noreen Katz Work Phone: [facility]-Sleep Lab Start: 05-26-2022 End: 05-26-[address] Noreen Katz Work Phone: [facility] Work Phone: Start: 05-26-2022 End: 05-26-[address] [facility] Katz [facility] Start: 05-14-2022 End: 05-14-[address] Noreen Katz Work Phone: [facility]-Pulmonary Medicine [facility] Start: 04-02-2022 End: 04-02-2022 Admission to same day surgery center Dr. Noreen Katz Work Phone: [facility]-Insurance Sales Assistant/Special Procedures Start: 04-02-2022 End: 04-02-[address] Noreen Katz Work Phone: [facility] Work Phone: Start: 03-26-2022 End: 03-26-[address] Noreen Katz Work Phone: [facility] Work Phone: Start: 03-26-2022 End: 03-26-[address] Noreen Katz Work Phone: [facility]-Radiology, [facility] Start: 03-26-2022 End: 03-26-[address] Noreen Katz Work Phone: [facility] Start: 03-19-2022 Non-patient / Non-visit Dr. Sangeeta Katz Work Phone: [facility] Start: 06-19-2021 Non-patient / Non-visit Dr. Sangeeta Katz Work Phone: [facility] Start: 06-19-2021 End: 06-19-[address] Noreen Katz Work Phone: [facility]-Cardiovascular Services Start: 05-21-2021 End: 05-21-2021 Patient encounter procedure [facility]-Laboratory, [facility] Procedures Date Procedure Procedure Detail Performing Clinician Start: 03-09-2023 MRI of lumbar spine Dr. Noreen Katz Work Phone: Start: 02-23-2023 X-ray of lumbar spin e, two or three views Dr. Noreen Katz Work Phone: Start: 01-07-2023 Plain x-ray of pelvi s and lower extremity Dr. Noreen Katz Work Phone: Start: 03-26-2022 Plain chest X-ray Dr. Mariluz Katz Work Phone: Plan of Treatment Date Care Activity Detail Author Catheterization of left heart [facility] Patient Education ED Sciatica [facility] Work Phone: Patient referral [facility] Work Phone: Polysomnography [facility] Immunizations Immunization Date Immunization Notes Care Provider Fa cility 07-19-2019 tetanus toxoid, redu sherman diphtheria toxoid, and acellular pertussis vaccine, adsorbed [facility] Payers Date Payer Category Payer Medicare [id number] 2024 Unknown [id number] 2023 Self-pay [id number] 2016 Unknown [id number] Unknown [facility] PACKAGE PLAN [id number] Unknown [id number] Unknown [id number] Unknown [id number] Unknown [id number] Social History Date Type Detail Facility Start: 07-19-2019 End: 03-18-2023 Tobacco smoking status NHIS Unknown if ever smoked [facility] Start: 08-27-2017 Occasional [facility] Start: 08-27-2017 None [facility] Start: 07-19-2019 Spouse/ Signif icant Other [facility] Start: 1955 Sex Assigned At Male [facility] Mental Status Date Assessment Result Facility 01-03-2023 Cognitive function Level Of Cons ciousness Awake;Alert;Appropriate;Follow s Commands [facility] Work Phone: Discharge summary 03-23-2023 Note Date & Type Note Facility 03-23-2023 Discharge summary Note Date/Time 2023 3:32pm [facility] Physical Therapy Health[address] [place] [address] / REHABILITATION SERVICES DISCHARGE SUMMARY MR#: [id number] Acct: [id number] Name: DAI REYES Rep #: [id number] : 1955 68 From: Cert. LIBRA ObrienT, OCS Referring Dr.: Dr. Noreen Katz MD Status: REG RCR Insurance: [employer]Y INSURANCE Discharge Summary D/C summary: It has been my pleasure to treat DAI REYES referred by Dr. Noreen Katz MD, with the diagnosis of GLUTEAL TENDONITIS ,RIGHT for a total of 18 visit(s). Discharge Date: 03/20/23 Please see the following information for a summary of their discharge status. Subjective Subjective: Seen Ortho reviewed MRI Cont with PT or gym ex's If gets worse RTD possible pain management Pain Right Lower Extremity: Pain Intensity (Out of 10): 0 Left Back: Pain Intensity (Out of 10): 1 Overall Improvement % Improvement: 95 Objective Objective/Function: POSTURE: mild forward posture GAIT: reciprocal pattern NEURO: denies paresthesia/tingling , reflexes L4-5,L4-L5 ,L5-S1 1/3 MMT: left quads/hams 4/5 ,hip flexion 4-5 , right 4/5 ,ankle DF 4/5 LUMABR ROM: flexion min loss ,extension mod loss ,side glides min loss FLEXABILITY: hamstrings mod loss -SLR Goals Goal 1:: Patient to be I with HEP . Goal Progress: Goal Met Goal 2:: Patient to demonstrate 50% improvement with function and less pain. Goal Progress: Goal Met Goal 3:: Patient to improve lumbar ROM for function of recovery to put on shoes Goal Progress: Goal Met Goal 4:: Patient to normailze gait with less pain Goal Progress: Goal Met Goal 5:: Patient to improve back oswestry score by 5 points to improve QOL. Plan Plan: D/C D/C Information Discharge Comments: HEP AND GYM d/c sentence: If there are questions or concerns regarding this patient's physical therapy, please feel free to call me at [phone]. Thank you for the referral of thispatient. Sincerely, Eric Buck PT, Cert T, OCS Balance/Gait/Functional tests Balance/Special Test Scores Oswestry Low Back Score: 3 Improvement % Improvement: 95 <Electronically signed by Cee Patton PT. JOSEF DOVE> 03/23/23 1517 CC: Dr. Noreen Katz MD ~ FERNY Signed [facility] Work Phone: Discharge summary 01-03-2023 Note Date & Type Note Facility 01-03-2023 Discharge summary Note Date/Time January 03, 2023 3:43pm [facility] Medical Records Department [address] [place] [address] Emergency Department Summary 01/03/23 MR#: [id number] Acct: [id number] Name: DAI REYES Rep #:[id number] : 1955 67 From: Cash Marcum DO PCP: Dr. Noreen Katz MD Status:REG ER Location: ED HPI History of Present Illness Chief Complaint: Other, Pain/Inj Narrative Narrative: 67-year-old male presenting with right gluteal pain that radiates down the posterior thigh. Symptoms started last evening. He denies any trauma. He states he was driving home from [place] and he noted that it is right gluteal region appear to be painful. He states he did not think he was anemic at home. He states that laying and sitting make it worse and getting up and ambulating and moving to get better. No back pain. No numbness or tingling. 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 States it does not feel the same. Denies any current DVT risk factors. No chest pain or shortnessof breath. [facility] Medical History PHILIPPE (dyspnea on exertion) Essential hypertension Hyperlipidemia Macular degeneration MARIO (obstructive sleep apnea) Unstable angina Home Medications vit C 250 mg-vit E 90 mg-zinc 40 mg-copper 1 [id number] capsule (PreserVision AREDS-2) 2 tab PO DAILY 03/26/22 [History Last Taken Unknown] amlodipine 10 mg tablet 10 mg PO DAILY #90 tabs 04/02/22 [Rx Last Taken Unknown] hydrochlorothiazide 25 mg tablet 25 mg PO DAILY #90 tabs 04/02/22 [Rx Last Taken Unknown] lisinopril 10 mg tablet 10 mg PO DAILY #90 tabs 04/02/22 [Rx Last Taken Unknown] Oral Appliace #1 ea 06/16/22 [Rx Last Taken Unknown] cyclobenzaprine 10 mg tablet 10 mg PO TID PRN Muscle Spasm #20 TABLETS 01/03/23 [Rx Last Taken Unknown] naproxen 500 mg tablet (Naprosyn) 500 mg PO BID PRN pain #20 tabs 01/03/23 [Rx Last Taken Unknown] Allergy/AdvReac Type Severity Reaction Status Date / Time shellfish derived Allergy Other Verified 01/03/23 15:12 Family History Father Cancer Social History Smoking Status: Former smoker how long ago did patient quit smokin years ago alcohol intake: current alcohol intake frequency: 0-2 drinks per day Alcohol type: beer substance use type: does not use caffeine: Yes Type: coffee Number of servings: 3 ROS ROS ED Constitutional Constitutional ED: Denies chills, fever(s) or sweats Eyes Eyes: Denies blurry vision or change in vision ENT ENT ED: Denies ear pain or sore throat Cardiovascular Cardiovascular: Denies chest pain, palpitations or racing heartbeat Respiratory/Chest Respiratory/Chest: Denies cough, dyspnea or sputum Gastrointestinal Gastrointestinal: Denies abdominal pain, constipation, diarrhea, nausea or vomiting Genitourinary Genitourinary ED: Denies dysuria, hematuria or urinary frequency Musculoskeletal Musculoskeletal: Reports other Details: Right gluteal pain ; Denies arthralgias, myalgias or neck pain Integumentary Denies abscess, Abrasions or rash Neurologic Neurologic: Denies headache(s), paresthesias or weakness Psychiatric Psychiatric: Denies anxiety, depression, suicidal ideation or suicidal thoughts Endocrine Endocrinology: Denies polydipsia or polyuria EXAM Physical Exam Const Vital Signs: 01/03/23 15:12 Temperature 98.5 F Temperature Source Temporal Pulse Rate 62 Respiratory Rate 18 Blood Pressure 144/72 H Blood Pressure Mean 96 Pulse Ox 98 Oxygen Delivery Method Room Air Positive well nourished General Appearance ED: NAD HEENT atraumatic Eyes PERRL Chest Wall inspection of chest normal Resp normal respiratory effort Cardio regular rhythm Rate: regular rate Back/Spine normal to inspection and no thoracic nor lumbar tenderness Extremity Extremity Narrative: Palpation the right gluteal region and right posterior thigh. Pain is increasedwith flexion and internal rotation of the hip. Is also increased with straight leg raise. Neuro oriented x3 and CN's II-XII intact bilaterally Sensorium / Orientation: alert Motor Exam: strength 5/5 throughout Psych mental status grossly normal and thought process normal Skin no rashes or lesions noted and no wounds MDM MDM MDM Narrative Medical decision making narrative: Patient presenting with right gluteal pain. She is nontraumatic. Exam most consistent with sciatica. Patient given Norflex and Toradol. We discussed the possibility of DVT and he states he has a distantly and it was in the left calf and he does not think that it feels the same. We will reevaluate him after medicating. Patient is offered outpatient ultrasound for tomorrow as we do not have DVT studies here today. He declines. Patient feeling better on reevaluation after Norflex and Toradol. He will be given Naprosyn and Flexeril for home. Impression: 1. Sciatica Discharge Plan Triage Chief Complaint: Other, Pain/Inj ED Provider: Cash Marcum Dx/Rx/DC Orders Instructions: ED Sciatica Prescriptions: New naproxen [Naprosyn] 500 mg tablet 500 mg PO BID PRN (Reason: pain) Qty: 20 0RF cyclobenzaprine 10 mg tablet 10 mg PO TID PRN (Reason: Muscle Spasm) Qty: 20 0RF No Action PreserVision AREDS-2 250-90-40-1 mg capsule 2 tab PO DAILY (DME) Oral Appliace See Rx Instructions .ROUTE .MEDSUPPLY Qty: 1 0RF Rx Instructions: As directed amlodipine 10 mg tablet 10 mg PO DAILY Qty: 90 3RF hydrochlorothiazide 25 mg tablet 25 mg PO DAILY Qty: 90 3RF lisinopril 10 mg tablet 10 mg PO DAILY Qty: 90 3RF Primary Care Provider: Noreen Katz Referrals: Noreen Katz MD [Primary Care Provider] - Disposition Disposition: Home, Self Care What to do if you have Problems For any increased pain, shortness of breath, bleeding, nausea or vomiting, chestpain, or any unexpected problems, contact your Primary Care Provider. Call [facility] ([phone]) or report to the closest Emergency Room. Call 911 if necessary. 01/03/23 9076 <Electronically signed by Cash Marcum DO> Cosigner Signature (if applicable): CC: Dr. Noreen Katz MD ~ Signed [facility] Work Phone: Evaluation note Note Date & Type Note Facility Evaluation note No assessment information availa ble [facility] Work Phone: Evaluation note Note Date & Type Note Facility Evaluation note Diagnosis Onset Date Chest pain acute Essential hypertension chron ic Hyperlipidemia chronic [facility] Work Phone: Evaluation note Note Date & Type Note Facility Evaluation note Diagnosis Onset Date Chest pain acute Essential hypertension chron ic Hyperlipidemia chronic MARIO (obstructive sleep apnea) acute [facility] Work Phone: Evaluation note Note Date & Type Note Facility Evaluation note Diagnosis Onset Date Lumbar radiculopathy noneact martin [facility] Work Phone: Evaluation note Note Date & Type Note Facility Evaluation note Diagnosis Onset Date Lumbar radiculopathy noneact martin Lumbar canal stenosis acute Lumbar foraminal stenosis ac [place] [facility] Work Phone: Family History No Family History Records Found Relationship Condition Age at Onset Recorded Date/T ngoc Unknown Family History?- Unknown August 27, 2017 4:38pm Family History?Cancer Unknown August 092017 4:38pm Relationship Condition Age at Onset Recorded Date/T ngoc father Malignant neoplasm Unknown Advance Directives No Advanced Directives Records Found Advance Directive Response Recorded Date/ Time Living Will Yes July 19, 2019 1 :36pm Power of Cuff Matcher Yes July 19, 2019 1:36pm Advance Directive Response Recorded Date/ Time Advance Directives on File No 2022 10:22am Name of Medical Power of Cuff Matcher Sera April 02, 2022 10:22am Advance Directives Yes March 10:22am Living Will Yes April 02 023 10:22am Power of Cuff Matcher Yes April 02, 2022 10:22am Advance Directive Response Recorded Date/ Time Advance Directives on File No lakisha 2022 11:22am Name of Medical Power of Cuff Matcher Sera April 02, 2022 11:22am Advance Directives Yes March 11:22am Living Will Yes April 02 023 11:22am Power of Cuff Matcher Yes April 02, 2022 11:22am Advance Directive Response Recorded Date/ Time Advance Directives Yes March 10:22am Living Will No January 03, 2 023 3:44pm Power of Cuff Matcher No January 03, 2023 3:44pm Chief Complaint and Reason for Visit Chief Complaint MURMUR Chief Complaint Amb Documentation UNSTABLE ANGINA (JOLLIFF) EORDER CHEST PAIN Reason for Visit Chest pain Essential hypertension Hyperlipidemia Chief Complaint Amb Documentation UNSTABLE ANGINA (JOLLIFF) EORDER CHEST PAIN Sleep apnea Reason for Visit Chest pain Essential hypertension Hyperlipidemia MARIO (obstructive sleep apnea) Chief Complaint Amb Documentation UNSTABLE ANGINA (JOLLIFF) EORDER CHEST PAIN Sleep apnea MARIO Reason for Visit Chest pain Essential hypertension Hyperlipidemia MARIO (obstructive sleep apnea) Chief Complaint 6 M FU leg pain Reason for Visit Chest pain Essential hypertension Hyperlipidemia Chief Complaint 6 M FU leg pain EORDER Reason for Visit Chest pain Essential hypertension Hyperlipidemia Chief Complaint leg pain EORDER RIGHT HIP room 1 Radiculopathy, lumbar region RIGHT GLUTEAL TENDONITIS. RX HERE Reason for Visit Lumbar radiculopathy Chief Complaint leg pain EORDER RIGHT HIP room 1 Radiculopathy, lumbar region RIGHT HIP RIGHT GLUTEAL TENDONITIS. RX HERE Reason for Visit Lumbar radiculopathy Lumbar canal stenosis Lumbar foraminal stenosis Summary Purpose Additional Source Comments Goals (unrecognized section and content) Goals may be documented in a n alternate sectionGoals may be documented in an alternate sectionGoals may be documented in an alternate sectionGoals may be documented in an alternate sectionGoals may be documented in an alternate sectionGoals may be documented in an alternate sectionGoals may be documented in an alternate sectionGoals may be documented in an alternate sectionGoals may be documented in an alternate sectionGoals may be documented in an alternate section Care Teams (unrecognized sec tion and content) Team Status: Active Member Role Status Dates Dr. Noreen Katz MD Family Provider Active Dr. Noreen Katz MD Primary Care Provider Active Team Status: Inactive Member Role Status Dates Dr. Noreen Katz MD Primary Care Provider, [facility] Provider Active Dr. Benedict Gandhi MD Attending Provider Active Team Status: Active Member Role Status Dates Dr. Noreen Katz MD Primary Care Provider Active Jamia Rios Attending Provider Active Team Status: Inactive Member Role Status Dates Dr. Noreen Katz MD Primary Care Provider Active Dr. Benedict Gandhi MD Attending Provider, Referring Pro vider Active Team Status: Active Member Role Status Dates Dr. Noreen Katz MD Primary Care Provider Active Dr. Benedict Gandhi MD Attending Provider, Referring Pro vider Active Team Status: Inactive Member Role Status Dates Dr. Noreen Katz MD Primary Care Provider, Referrin g Provider Active Myrtle Zaragoza DIRECTOR HOME, DIRECTOR HOME-C Attending Provider Active Team Status: Inactive Member Role Status Dates Dr. Noreen Katz MD Primary Care Provider, Attendin g Provider Active Team Status: Inactive Member Role Status Dates Dr. Noreen Katz MD Primary Care Provider Active Myrtle Zaragoza DIRECTOR HOME, DIRECTOR HOME-C Attending Provider, Referrin g Provider Active Team Status: Inactive Member Role Status Dates Dr. Noreen Katz MD Primary Care Provider, Referrin g Provider Active Rashawn Holder DIRECTOR HOME, DIRECTOR HOME-C Attending Provider Active Team Status: Inactive Member Role Status Dates Dr. Noreen Katz MD Primary Care Provider Active Dr. Cash Marcum DO Emergency Provider Active Team Status: Inactive Member Role Status Dates Dr. Noreen Katz MD Primary Care Provider Active Dr. Prabhu Watt MD Attending Provider, Referri ng Provider Active Team Status: Inactive Member Role Status Dates Dr. Noreen Katz MD Primary Care Provider Active Dr. Cash Marcum DO Attending Provider, Emergency Provider Active Team Status: Inactive Member Role Status Dates Dr. Noreen Katz MD Primary Care Provider, Referrin g Provider Active Dr. Guillermo Arceo DO Attending Provider Active Team Status: Inactive Member Role Status Dates Dr. Noreen Katz MD Primary Care Provider Active Dr. Benedict Gandhi MD Attending Provider Active Team Status: Inactive Member Role Status Dates Dr. Noreen Katz MD Primary Care Provider Active Dr. Guillermo Arceo DO Attending Provider, Referring Provider Active Team Status: Active Member Role Status Dates Dr. Noreen Katz MD Primary Care Prov ider, Attending Provider, Referring Provider Active Team Status: Inactive Member Role Status Dates Dr. Noreen Katz MD Primary Care Prov ider, Attending Provider, Referring Provider Active (unrecognized sect ion and content) No Status Records Found INFORMATION SOURCE (unrecogn ized section and content) DATE CREATED AUTHOR 08/19/2024 [facility] FOR RECORDS PERTAINING TO PATIENTS WHO ARE OR HAVE BEEN ENROLLED IN A CHEMICAL DEPENDENCY/SUBSTANCEABUSE PROGRAM, SOME INFORMATION MAY BE OMITTED. This clinical summary was aggregated from multiple sources. Caution should be exercised in using it in the provision of clinical care. This summary normalizes information from multiple sources, and as a consequence, information in this document may materially change the coding, format and clinical context of patient data. In addition, data may be omitted in some cases. CLINICAL DECISIONS SHOULD BE BASED ON THE PRIMARY CLINICAL RECORDS. [facility]. provides no warranty or guarantee of the accuracy or completeness of information in this document.
--- OUTSIDE RECORDS SUMMARY | 2024-08-24 19:50 | XMS RPT_ITS | CCD ---
Author Organization [facility] Care Team Providers Care Professional System Administrator Name Role Phone Dr. Noreen Katz Primary Care Provider [phone] Benedict Gandhi Attending Provider [phone] Noreen Katz Primary Care Provider Jamia Rios Attending Provider Dr. Noreen Valentin Referring Provider [phone] Benedict Gandhi Attending Provider 1([facility])-[phone] Noreen Katz Primary Care Provider Jamia Rios Attending Provider Dr. Noreen Valentin Referring Provider [phone] Benedict Gandhi Attending Provider [phone] Nik STEAM DRIER TENDER, STEAM DRIER TENDERHimanshu Iraheta Attending Provider Dr. Noreen Kazt Primary Care Provider Dr. Noreen Katz Referring Provider [phone] Gallo STEAM DRIER TENDER, STEAM DRIER TENDER-Sintia Verduzco Attending Provider Dr. Noreen Katz Primary Care Provider Dr. Noreen Katz Referring Provider [phone] Guillermo Arceo Attending Provider [phone] Benedict Gandhi Attending Provider 1([facility])-[phone] Benedict Gandhi Attending Unavailable Noreen Katz [...] [shellfish derived] Allergy to substance 07-19-2019 Other [facility] Medications Current Medications Medication Drug Class(es) [...] 18, 2019 11:00pm April 02, 2022 12:56pm Multivitamin,Lx-Wibu-Mwjbndy s (Therems-M) 1 TABLET tablet (10 sources) Start: 06-21-2013 take 1 tablet by mouth once daily Multivitamin,Dy-Kisv-Eojnhhdu (Therems-M) 1 TABLET tablet Active 1 TABLET PO DAILY June 21, 2013 7:45am Start: 06-21-2013 End: 03-26-2022 take 1 tablet by mouth once daily Multivitamin,Jh-Ndzl-Udbivwfz (Therems-M ) 1 TABLET tablet Discontinued 1 TABLET PO DAILY June 21, 2013 12:00am March 26, 2022 3:32pm Start: 06-21-2013 End: 03-26-2022 take 1 tablet by mouth once daily Multivitamin,Uh-Jcwm-Vuwptrou (Therems-M ) 1 TABLET tablet Discontinued 1 [...] 2023 12:00am February 23, 2023 2:55pm Vit C,S-Xd-Iysqv-Lutein- Zeaxan (Preservision Areds-2) 250-90-40-1 mg capsule (8 sources) Start: 03-26-2022 End: 02-23-2023 Vit C,D-Sw-Xbzkp-Lutein- Zeaxan (Preservision Areds-2) 250-90-40-1 mg capsule Discontinued 2 TABLET PO DAILY March 26, 2022 12:00am February 23, 2023 2:55pm Start: 03-26-2022 Vit C,E-Zn-Posting Specialist wm-Oanrgw-Vrcqmg (Preservision Areds-2) 250-90-40-1 mg capsule Active 2 TABLET PO DAILY March 26, 2022 1:00am Start: 03-26-2022 Vit C,E-Zn-Posting Specialist ch-Xsacja-Yfalsi (Preservision Areds-2) 250-90-40-1 mg capsule Active 2 [...] AST [Catalytic activity/Vol] 18 U/L Normal 15-37 [facility] Comment on above: Order Comment: Order Date: 12/11/23 Order Info: [id number] - LIPID Order Info: 192 - AST Order Info: 1742-6 - ALT Order Info: 3015-04 - TSH Order Info: 1 - PSA Performed By: #### L 501.4100, L500.4100, L502.0250, L501.4405, L501.9520 #### [facility] [address] [place], [address] Alanine Aminotransferas (SGP T)on 12-11-2023 ALT [Catalytic activity/Vol] 29 U/L Normal 16-61 [facility] Comment on above: Order Comment: Order Date: 12/11/23 Order Info: [id number] - LIPID Order Info: 1919-09 - AST Order Info: 1741-07 ALT Order Info: 3015-04 - TSH Order Info: 2856-02 - PSA Performed By: #### L 501.4100, L500.4100, L502.0250, L501.4405, L501.9520 #### [facility] [address] [place], [address] Lipid Profileon 12-11-2023 Cholesterol [Mass/Vol] 176 mg/dL Normal 200 [facility] Comment on above: Order Comment: Order Date: 12/11/23 Order Info: [id number] - LIPID Order Info: 1919-09 - AST Order Info: 1741-07 ALT Order Info: 3015-04 - TSH Order Info: 2856-02 - PSA Result Comment: <200 mg/dL Desirable 200-240 mg/dL Borderline >240 mg/dL High Risk Performed By: #### L 501.4100, L500.4100, L502.0250, L501.4405, L501.9520 #### [facility] [address] [place], [address] Cholesterol in HDL [Mass/Vol] 50 mg/dL Normal [facility] Comment on above: Order Comment: Order Date: 12/11/23 Order Info: [id number] - LIPID Order Info: 1919-09 - AST Order Info: 1741-07 - ALT Order Info: 3015-04 - TSH Order Info: 2857-1 - PSA Result Comment: The drugs N-Acetylcysteine and Metamizole may falsely depress this assay. Reference Range HDL <40 mg/dL Low HDL Cholesterol HDL >or= 60 mg/dL High HDL Cholesterol Performed By: #### L 501.4100, L500.4100, L502.0250, L501.4405, L501.9520 #### [facility] [address] [place], [address] Cholesterol in LDL [Mass/Vol] 78 mg/dL Normal 0-130 [facility] Comment on above: Order Comment: Order Date: 12/11/23 Order Info: [id number] - LIPID Order Info: 1919-09 - AST Order Info: 1741-07 ALT Order Info: 3015-04 - TSH Order Info: 2856-02 - PSA Performed By: #### L 501.4100, L500.4100, L502.0250, L501.4405, L501.9520 #### [facility] [address] [place], [address] Cholesterol in VLDL [Mass/Vol] 48 mg/dL High 5-40 [facility] Comment on above: Order Comment: Order Date: 12/11/23 Order Info: [id number] - LIPID Order Info: 1919-09 AST Order Info: 1741-07 ALT Order Info: 3015-04 - TSH Order Info: 2856-02 - PSA Performed By: #### L 501.4100, L500.4100, L502.0250, L501.4405, L501.9520 #### [facility] [address] [place], [address] Triglyceride [Mass/Vol] 240 mg/dL High [facility] Comment on above: Order Comment: Order Date: 12/11/23 Order Info: [id number] - LIPID Order Info: 1919-09 - AST [...] L 501.4100, L500.4100, L502.0250, L501.4405, L501.9520 #### [facility] [address] [place], [address] Microalb:Creat Ratio,Random URon 12-11-2023 MALB:CRE 12.8 mg/g CRE Normal <30 mg/g CRE [facility] Comment on above: Order Comment: Order Date: 12/11/23 Order Info: [id number] - MIACRE Performed By: #### L 501.4100, L500.4100, L502.0250, L501.4405, L501.9520 #### [facility] [address] [place], [address] MICROALBUMIN,UR 7.4 mg/L Normal NO RANGE EST. [facility] Comment on above: Order Comment: Order Date: 12/11/23 Order Info: [id number] - MIACRE Performed By: #### L 501.4100, L500.4100, L502.0250, L501.4405, L501.9520 #### [facility] [address] [place], [address] PSA,Total - Annual Screenon 12-11-2023 PSA,TOT SCREEN 2.06 ng/mL Normal 0.00-4.00 [facility] Comment on above: Order Comment: Order Date: 12/11/23 Order Info: [id number] - LIPID Order Info: 1920-8 - AST Order Info: 1742-6 - ALT Order Info: 3016-3 - TSH Order Info: 2857-1 - PSA Result Comment: This test was performed using the TPSA assay method for the [employer] chemistry system. Values obtained with different assay methods cannot be used interchangably. When changing PSA assays in the course of monitoring a patient, additional sequential testing should be carried out to confirm baseline values. Performed By: #### L 501.9910 #### [facility] [address] [place], [address] Protein+Creatinine Ratio,Uri neon 12-11-2023 PROT:CRE RATIO 205 mg/g CRE High 0-200 [facility] Comment on above: Order Comment: Order Date: 12/11/23 Order Info: [id number] - MIACRE Performed By: #### L 501.0900 #### [facility] [address] [place], [address] Protein (U) [Mass/Vol] 11.9 mg/dL High <11.9 [facility] Comment on above: Order Comment: Order Date: 12/11/23 Order Info: [id number] - MIACRE Performed By: #### L 501.0900 #### [facility] [address] [place], [address] UR CREAT 58.00 mg/dL Normal NO RANGE EST. [facility] Comment on above: Order Comment: Order Date: 12/11/23 Order Info: [id number] - MIACRE Performed By: #### L 501.0900 #### [facility] [address] [place], [address] Thyroid Stim Hormone (TSH)on 12-11-2023 TSH 1.860 uIU/mL Normal 0.358-3.740 [facility] Comment on above: Order Comment: Order Date: 12/11/23 Order Info: [id number] - LIPID Order Info: 1920-8 - AST Order Info: 1742-6 - ALT Order Info: 3016-3 - TSH Order Info: 2857-1 - PSA Performed By: #### L 501.4100, L500.4100, L502.0250, L501.4405, L501.9520 #### [facility] [address] [place], [address] Cardiology Visit Reporton Cardiology Visit Report [facility] [address] [place] [address] OFFICE VISIT Date of Service: 11/05/23 MR#: [id number] Acct: [id number] Name: DAI REYES Rep #: [id number] 15 : 1955 Provider: Dr. Benedict Gandhi MD Age/Sex: 68/M Location: [facility] Status: Signed HPI HPI History of Present Illness Details: Pleasant 68-year-old man with a history of hypertension hyperlipidemia who approximately a year ago developed chest discomfort while on a trip to [place]. It had apparently been getting worse. 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 Normal [facility] Orthopedic Visit Reporton Orthopedic Visit Report [facility] [address] [place] [id number] OFFICE VISIT Date of Service: 10/15/23 MR#: [id number] Acct: [id number] Name: DAI REYES Rep #: [id number] 04 : 1955 Provider: Dr. Aashish Beavers MD Age/Sex: 68/M Location: [facility] Status: Signed Intake Vital Signs 07/14/23 11:24 [...] start physical therapy through his membership at [facility] next week. Ortho Exam General General: Yes [...] applicable) CC: Dr. Noreen Katz MD Normal [facility] Absolute lymphocyte countOrd ered By: Dr. Katz on 05-26-2022 Lymphocytes Auto (Unsp spec) [#/Vol] 1.71 10*3/uL 0.83-4.51 [facility] Basophil percentageOrdered B y: Dr. Katz on 05-26-2022 Basophils/100 WBC (Bld) 0.8 % 0-1 [facility] Chloride [Moles/Vol] 105 mmol/L 98-107 [facility] Cholesterol [Mass/Vol] 208 mg/dL <200 [facility] Comment on above: <200 mg/dL Desirable 200-240 mg/dL Borderline >240 mg/dL High Risk Eosinophils/100 WBC (Bld) 2.2 % 0-5 [facility] Glucose [Mass/Vol] 188 mg/dL 74-106 [facility] Comment on above: Fasting Glucose resu lt greater than or equal to 126 mg/dL suggests DIABETES MELLITUS per A.D.A. criteria. Neutrophils (Bld) [#/Vol] 2.7 10*3/uL 2.0-7.7 [facility] Neutrophils/100 WBC (Bld) 54.3 % 47-70 [facility] Potassium [Moles/Vol] 3.8 mmol/L 3.5-5.[address] [facility] Sodium [Moles/Vol] 135 mmol/L 136-145 [facility] Testosterone [Mass/Vol] 315.18 ng/dL [facility] Comment on above: CENTRAL 90% REFERENC E RANGES MALE AGE <50 197.44 - 669.58 ng/dL MALE AGE > or = 50 187.72 - 684.19 ng/dL FEMALE AGE <50 8.38 - 35.01 ng/dL FEMALE AGE > or = 50 <7.00 - 35.92 ng/dL Effective as of 09/04/20 Triglyceride [Mass/Vol] 153 mg/dL <199 [facility] Comment on above: The drugs N-Acetylcy steine and Metamizole may falsely depress this assay.Serum Triglycerides Reference Interval Normal <150 mg/dL Borderline high 150 - 199 mg/dL High 200 - 499 mg/dL Very High > or = 500 mg/dL WBC (Bld) [#/Vol] 4.9 10*3/uL 4.4-11.0 [facility] Blood erythrocytes count (nu mber/volume)Ordered By: Dr. Katz on 05-26-2022 RBC (Bld) [#/Vol] 4.29 10*6/uL 4.6-6.2 [facility] Blood hemoglobin measurement (mass/volume)Ordered By: Dr. Katz on 05-26-2022 Hemoglobin (Bld) [Mass/Vol] 13.7 g/dL 13.0-16.5 [facility] Blood lymphocytes/100 leukoc ytesOrdered By: Dr. Katz on 05-26-2022 Lymphocytes/100 WBC (Bld) 34.8 % 19-41 [facility] Blood monocytes/100 leukocyt esOrdered By: Dr. Katz on 05-26-2022 Monocytes/100 WBC (Bld) 7.7 % 0-10 [facility] Blood platelet mean volumeOr dered By: Dr. Katz on 05-26-2022 Platelet mean volume (Bld) [Entitic vol] 11.4 fL 6.2-12.0 [facility] Determination of erythrocyte mean corpuscular volume (MCV)Ordered By: Dr. Katz on 05-26-2022 MCV (RBC) [Entitic vol] 89.5 fL 80-94 [facility] Erythrocyte sedimentation ra teOrdered By: Dr. Katz on 05-26-2022 ESR (Bld) [Velocity] 10 mm/h 0-20 [facility] Hematocrit Auto (Bld) [Volum e fraction]Ordered By: Dr. Katz on 05-26-2022 Hematocrit (Bld) [Volume fraction] 38.4 % 40-54 [facility] - Chemistry and C hemistry - challengeOrdered By: Dr. Katz on 05-26-2022 ALT [Catalytic activity/Vol] 42 U/L 16-61 [facility] CO2 [Moles/Vol] 24.0 mmol/L 21.0-32.0 [facility] Urea nitrogen/Creatinine [Mass ratio] 12.6 mg/mg 10-20 [facility] - Hematology and Cell countsOrdered By: Dr. Katz on 05-26-2022 Erythrocyte distribution width (RBC) [Entitic vol] 42.5 fL 35.1-43.9 [facility] Erythrocyte distribution width (RBC) [Ratio] 13.0 % 11.6-14.6 [facility] Immature granulocytes/100 WBC (Bld) 0.200 % 0.0-0.9 [facility] Comment on above: IG% - Immature Granu locytes (promyelocytes, myelocytes and metamyelocytes) > 1% indicates that a LEFT SHIFT is Present. MCH (RBC) [Entitic mass] 31.9 pg 27.0-32.0 [facility] Nucleated RBC/100 WBC (Bld) [Ratio] 0 % 0-5 [facility] MCHC Auto (RBC) [Mass/Vol]Or dered By: Dr. Katz on 05-26-2022 MCHC (RBC) [Mass/Vol] 35.7 g/dL 32-[address] [facility] No Panel InformationOrdered By: Dr. Katz on 05-26-2022 Urine Microalbumin/Creatinine Ratio 13.0 mg/g CRE <30 [facility] Estimated GFR (MDRD) Amer 112 mL/min >60 [facility] Comment on above: GFR Calc Estimated GFR (MDRD) Non-Af Amer 93 mL/min >60 [facility] Comment on above: Non- GFR Calc Thyroid Stimulating Hormone (TSH) 1.85 uIU/mL 0.358-3.74 [facility] Platelets bldOrdered By: Dr. Katz on 05-26-2022 Platelets (Bld) [#/Vol] 236 10*3/uL 150-450 [facility] Serum or plasma calcium hector urement (mass/volume)Ordered By: Dr. Katz on 05-26-2022 Calcium [Mass/Vol] 8.6 mg/dL 8.5-10.1 [facility] Serum or plasma cholesterol in HDL measurement (mass/volume)Ordered By: Dr. Katz on 05-26-2022 Cholesterol in HDL [Mass/Vol] 48 mg/dL >40 [facility] Comment on above: The drugs N-Acetylcy steine and Metamizole may falsely depress this assay. Reference Range HDL <40 mg/dL Low HDL Cholesterol HDL >or= 60 mg/dL High HDL Cholesterol Serum or plasma cholesterol in VLDL measurement (mass/volume)Ordered By: Dr. Katz on 05-26-2022 Cholesterol in VLDL [Mass/Vol] 31 mg/dL 5-40 [facility] Serum or plasma creatinine m easurement (mass/volume)Ordered By: Dr. Katz on 05-26-2022 Creatinine [Mass/Vol] 0.87 mg/dL 0.70-1.[address] [facility] Comment on above: The validity of the calculated GFR & GFRAA in patients over 70 years has not been determined. Clinical correlation is essential. Serum or plasma low density lipoprotein (LDL) cholesterol measurement (mass/volume)Ordered By: Dr. Katz on 05-26-2022 Cholesterol in LDL [Mass/Vol] 129 mg/dL 0-130 [facility] Serum or plasma urea nitroge n measurement (mass/volume)Ordered By: Dr. Katz on 05-26-2022 Urea nitrogen [Mass/Vol] 11 mg/dL 7-18 [facility] Thin prep Papanicolaou smear with manual screeningOrdered By: Dr. Katz on 05-26-2022 Thin prep Papanicolaou smear with manual screening 25.1 mg/L NO RANGE EST. [facility] Thin prep Papanicolaou smear with manual screening 25 U/L 15-37 [facility] Thin prep Papanicolaou smear with manual screening 6 5-15 [facility] Urine creatinine measurement (mass/volume)Ordered By: Dr. Katz on 05-26-2022 Creatinine (U) [Mass/Vol] 193.00 mg/dL NO RANGE EST. [facility] Whole blood hemoglobin A1c/t otal hemoglobin ratio (mass fraction)Ordered By: Dr. Katz on 05-26-2022 HbA1c (Bld) [Mass fraction] 5.5 % 3.8-5.6 [facility] Comment on above: Normal < 5.7 % Predi abetic 5.7 - 6.4 % Diabetic >or= 6.5 % Please note range changes. Absolute lymphocyte countOrd ered By: Dr. Gandhi on 03-26-2022 Lymphocytes Auto (Unsp spec) [#/Vol] 2.15 10*3/uL 0.83-4.51 [facility] Basophil percentageOrdered B y: Dr. Gandhi on 03-26-2022 Basophils/100 WBC (Bld) 0.5 % 0-1 [facility] Chloride [Moles/Vol] 104 mmol/L 98-107 [facility] Eosinophils/100 WBC (Bld) 2.5 % 0-5 [facility] Glucose [Mass/Vol] 111 mg/dL 74-106 [facility] Comment on above: Fasting Glucose resu lt from 100 to 125 mg/dL suggests IMPAIRED HOMEOSTASIS per A.D.A. criteria. Neutrophils (Bld) [#/Vol] 3.6 10*3/uL 2.0-7.7 [facility] Neutrophils/100 WBC (Bld) 55.2 % 47-70 [facility] Potassium [Moles/Vol] 4.0 mmol/L 3.5-5.[address] [facility] Sodium [Moles/Vol] 140 mmol/L 136-145 [facility] WBC (Bld) [#/Vol] 6.4 10*3/uL 4.4-11.0 [facility] Blood erythrocytes count (nu mber/volume)Ordered By: Dr. Gandhi on 03-26-2022 RBC (Bld) [#/Vol] 4.75 10*6/uL 4.6-6.2 [facility] Blood hemoglobin measurement (mass/volume)Ordered By: Dr. Gandhi on 03-26-2022 Hemoglobin (Bld) [Mass/Vol] 15.1 g/dL 13.0-16.5 [facility] Blood lymphocytes/100 leukoc ytesOrdered By: Dr. Gandhi on 03-26-2022 Lymphocytes/100 WBC (Bld) 33.4 % 19-41 [facility] Blood monocytes/100 leukocyt esOrdered By: Dr. Gandhi on 03-26-2022 Monocytes/100 WBC (Bld) 8.1 % 0-10 [facility] Blood platelet mean volumeOr dered By: Dr. Gandhi on 03-26-2022 Platelet mean volume (Bld) [Entitic vol] 10.9 fL 6.2-12.0 [facility] Determination of erythrocyte mean corpuscular volume (MCV)Ordered By: Dr. Gandhi on 03-26-2022 MCV (RBC) [Entitic vol] 90.1 fL 80-94 [facility] Hematocrit Auto (Bld) [Volum e fraction]Ordered By: Dr. Gandhi on 03-26-2022 Hematocrit (Bld) [Volume fraction] 42.8 % 40-54 [facility] INR in Blood by Coagulation assayOrdered By: Dr. Gandhi on 03-26-2022 INR Coag (Bld) [Relative time] 1.1 {INR} [facility] - Chemistry and C hemistry - challengeOrdered By: Dr. Gandhi on 03-26-2022 CO2 [Moles/Vol] 26.0 mmol/L 21.0-32.0 [facility] Urea nitrogen/Creatinine [Mass ratio] 17.4 mg/mg 10-20 [facility] - CoagulationOrde red By: Dr. Gadnhi on 03-26-2022 aPTT Coag (Bld) [Time] 26.4 s 24.1-36.2 [facility] PT Coag (PPP) [Time] 13.4 s 11.7-14.9 [facility] - Hematology and Cell countsOrdered By: Dr. Gandhi on 03-26-2022 Erythrocyte distribution width (RBC) [Entitic vol] 43.9 fL 35.1-43.9 [facility] Erythrocyte distribution width (RBC) [Ratio] 13.2 % 11.6-14.6 [facility] Immature granulocytes/100 WBC (Bld) 0.300 % 0.0-0.9 [facility] Comment on above: IG% - Immature Granu locytes (promyelocytes, myelocytes and metamyelocytes) > 1% indicates that a LEFT SHIFT is Present. MCH (RBC) [Entitic mass] 31.8 pg 27.0-32.0 [facility] Nucleated RBC/100 WBC (Bld) [Ratio] 0 % 0-5 [facility] MCHC Auto (RBC) [Mass/Vol]Or dered By: Dr. Gandhi on 03-26-2022 MCHC (RBC) [Mass/Vol] 35.3 g/dL 32-[address] [facility] No Panel InformationOrdered By: Dr. Gandhi on 03-26-2022 Estimated GFR (MDRD) Amer 113 mL/min >60 [facility] Comment on above: GFR Calc Estimated GFR (MDRD) Non-Af Amer 94 mL/min >60 [facility] Comment on above: Non- GFR Calc Platelets bldOrdered By: Dr. Gandhi on 03-26-2022 Platelets (Bld) [#/Vol] 232 10*3/uL 150-450 [facility] Serum or plasma calcium hector urement (mass/volume)Ordered By: Dr. Gandhi on 03-26-2022 Calcium [Mass/Vol] 9.5 mg/dL 8.5-10.1 [facility] Serum or plasma creatinine m easurement (mass/volume)Ordered By: Dr. Gandhi on 03-26-2022 Creatinine [Mass/Vol] 0.86 mg/dL 0.70-1.[address] [facility] Comment on above: The validity of the calculated GFR & GFRAA in patients over 70 years has not been determined. Clinical correlation is essential. Serum or plasma urea nitroge n measurement (mass/volume)Ordered By: Dr. Gandhi on 03-26-2022 Urea nitrogen [Mass/Vol] 15 mg/dL 7-18 [facility] Thin prep Papanicolaou smear with manual screeningOrdered By: Dr. Gandhi on 03-26-2022 Thin prep Papanicolaou smear with manual screening 10 - [facility] Absolute lymphocyte counton 05-21-2021 Lymphocytes Auto (Unsp spec) [#/Vol] 1.73 10*3/uL 0.83-4.51 [facility] Work Phone: Basophil percentageon 2021 Basophils/100 WBC (Bld) 0.8 % 0-1 [facility] Work Phone: Chloride [Moles/Vol] 106 mmol/L 98-107 [facility] Work Phone: Cholesterol [Mass/Vol] 242 mg/dL <200 [facility] Work Phone: Comment on above: <200 mg/dL Desirable 200-240 mg/dL Borderline >240 mg/dL High Risk Eosinophils/100 WBC (Bld) 2.7 % 0-5 [facility] Work Phone: Glucose [Mass/Vol] 135 mg/dL 74-106 [facility] Work Phone: Comment on above: Fasting Glucose resu lt greater than or equal to 126 mg/dL suggests DIABETES MELLITUS per A.D.A. criteria. Neutrophils (Bld) [#/Vol] 3.0 10*3/uL 2.0-7.7 [facility] Work Phone: Neutrophils/100 WBC (Bld) 56.2 % 47-70 [facility] Work Phone: Potassium [Moles/Vol] 3.8 mmol/L 3.5-5.1 [facility] Work Phone: Sodium [Moles/Vol] 139 mmol/L 136-145 [facility] Work Phone: Testosterone [Mass/Vol] 419.06 ng/dL [facility] Work Phone: Comment on above: CENTRAL 90% REFERENC E RANGES MALE AGE <50 197.44 - 669.58 ng/dL MALE AGE > or = 50 187.72 - 684.19 ng/dL FEMALE AGE <50 8.38 - 35.01 ng/dL FEMALE AGE > or = 50 <7.00 - 35.92 ng/dL Effective as of 09/04/20 Triglyceride [Mass/Vol] 243 mg/dL [facility] Work Phone: Comment on above: The drugs N-Acetylcy steine and Metamizole may falsely depress this assay.Serum Triglycerides Reference Interval Normal <150 mg/dL Borderline high 150 - 199 mg/dL High 200 - 499 mg/dL Very High > or = 500 mg/dL WBC (Bld) [#/Vol] 5.3 10*3/uL 4.4-11.0 [facility] Work Phone: Blood erythrocytes count (nu mber/volume)on 05-21-2021 RBC (Bld) [#/Vol] 4.67 10*6/uL 4.6-6.2 [facility] Work Phone: Blood hemoglobin measurement (mass/volume)on 05-21-2021 Hemoglobin (Bld) [Mass/Vol] 14.5 g/dL 13.0-16.5 [facility] Work Phone: Blood lymphocytes/100 leukoc yteson 05-21-2021 Lymphocytes/100 WBC (Bld) 32.9 % 19-41 [facility] Work Phone: Blood monocytes/100 leukocyt eson 05-21-2021 Monocytes/100 WBC (Bld) 7.0 % 0-10 [facility] Work Phone: Blood platelet mean volumeon 05-21-2021 Platelet mean volume (Bld) [Entitic vol] 11.0 fL 6.2-12.0 [facility] Work Phone: Determination of erythrocyte mean corpuscular volume (MCV)on 05-21-2021 MCV (RBC) [Entitic vol] 88.4 fL 80-94 [facility] Work Phone: Erythrocyte sedimentation ra yo 05-21-2021 ESR (Bld) [Velocity] 8 mm/h 0-20 [facility] Work Phone: Hematocrit Auto (Bld) [Volum e fraction]on 05-21-2021 Hematocrit (Bld) [Volume fraction] 41.3 % 40-54 [facility] [facility] Work Phone: Laboratory - Chemistry and C hemistry - challengeon 05-21-2021 ALT [Catalytic activity/Vol] 56 U/L 16-61 [facility] Work Phone: CO2 [Moles/Vol] 28.0 mmol/L 21.0-32.0 [facility] Work Phone: Urea nitrogen/Creatinine [Mass ratio] 15.6 mg/mg 10-20 [facility] Work Phone: Laboratory - Hematology and Cell countson 05-21-2021 Erythrocyte distribution width (RBC) [Entitic vol] 42.5 fL 35.1-43.9 [facility] Work Phone: Erythrocyte distribution width (RBC) [Ratio] 13.1 % 11.6-14.6 [facility] Work Phone: Immature granulocytes/100 WBC (Bld) 0.400 % 0.0-0.9 [facility] Work Phone: Comment on above: IG% - Immature Granu locytes (promyelocytes, myelocytes and metamyelocytes) > 1% indicates that a LEFT SHIFT is Present. MCH (RBC) [Entitic mass] 31.0 pg 27.0-32.0 [facility] Work Phone: Nucleated RBC/100 WBC (Bld) [Ratio] 0 % 0-5 [facility] Work Phone: MCHC Auto (RBC) [Mass/Vol]on 05-21-2021 MCHC (RBC) [Mass/Vol] 35.1 g/dL 32-[address] [facility] Work Phone: No Panel Informationon 05-21 Estimated GFR (MDRD) Amer 109 mL/min >60 [facility] Work Phone: Comment on above: GFR Calc Estimated GFR (MDRD) Non-Af Amer 90 mL/min >60 [facility] Work Phone: Comment on above: Non- GFR Calc Thyroid Stimulating Hormone (TSH) 2.19 uIU/mL 0.358-3.74 [facility] Work Phone: Platelets bldon 05-21-2021 Platelets (Bld) [#/Vol] 247 10*3/uL 150-450 [facility] Work Phone: Serum or plasma calcium hector urement (mass/volume)on 05-21-2021 Calcium [Mass/Vol] 9.1 mg/dL 8.5-10.1 [facility] Work Phone: Serum or plasma cholesterol in HDL measurement (mass/volume)on 05-21-2021 Cholesterol in HDL [Mass/Vol] 47 mg/dL [facility] Work Phone: Comment on above: The drugs N-Acetylcy steine and Metamizole may falsely depress this assay. Reference Range HDL <40 mg/dL Low HDL Cholesterol HDL >or= 60 mg/dL High HDL Cholesterol Serum or plasma cholesterol in VLDL measurement (mass/volume)on 05-21-2021 Cholesterol in VLDL [Mass/Vol] 49 mg/dL 5-40 [facility] Work Phone: Serum or plasma creatinine m easurement (mass/volume)on 05-21-2021 Creatinine [Mass/Vol] 0.90 mg/dL 0.70-1.[address] [facility] Work Phone: Comment on above: The validity of the calculated GFR & GFRAA in patients over 70 years has not been determined. Clinical correlation is essential. Serum or plasma low density lipoprotein (LDL) cholesterol measurement (mass/volume)on 05-21-2021 Cholesterol in LDL [Mass/Vol] 146 mg/dL 0-130 [facility] Work Phone: Serum or plasma urea nitroge n measurement (mass/volume)on 05-21-2021 Urea nitrogen [Mass/Vol] 14 mg/dL 7-18 [facility] Work Phone: Thin prep Papanicolaou smear with manual screeningon 05-21-2021 Thin prep Papanicolaou smear with manual screening 23 U/L 15-37 [facility] Work Phone: Thin prep Papanicolaou smear with manual screening 5 5-15 [facility] Work Phone: Vital Signs Date Time Vital Sign Value Performing Clinician Faci leonelay 02-23-2023 14:53-0500 Body height 173.[address] Noreen Katz Work Phone: [facility] 02-23-2023 14:53-0500 Body mass index (BMI) [Ratio] 26.5 kg/m2 Dr. Noreen Katz Work Phone: [facility] 02-23-2023 14:53-0500 Body weight 80.[address] Noreen Katz Work Phone: [facility] 01-03-2023 16:55-0500 Diastolic blood pressure 58 mm[Hg] Dr. Noreen Katz Work Phone: [facility] 01-03-2023 16:55-0500 Heart rate 72 /min Dr. Noreen Katz Work Phone: 4(235)[phone] [place] [address] 01-03-2023 16:55-0500 Respiratory rate 16 /min Dr. Noreen Katz Work Phone: [facility] 01-03-2023 16:55-0500 SaO2% (BldA) [Mass fraction] 99 % Dr. Noreen Katz Work Phone: [facility] 01-03-2023 16:55-0500 Systolic blood pressure 168 mm[Hg] Dr. Noreen Katz Work Phone: [facility] 01-03-2023 15:12-0500 Body height 172.[address] Noreen Katz Work Phone: 5(564)013-753670 [place] [address] 01-03-2023 15:12-0500 Body mass index (BMI) [Ratio] 28.1 kg/m2 Dr. Noreen Katz Work Phone: 3(211)651-806870 [place] [address] 01-03-2023 15:12-0500 Body temperature 98.5 [degF] Dr. Noreen Katz Work Phone: [facility] 01-03-2023 15:12-0500 Body weight 83.[address] Noreen Katz Work Phone: 4(182)732-748670 [place] [address] 09-17-2022 13:00-0400 Body mass index (BMI) [Ratio] 26.4 kg/m2 Dr. Noreen Katz Work Phone: 0(624)660-031670 [place] [address] 09-17-2022 13:00-0400 Body weight 78.[address] Noreen Katz Work Phone: [facility] 09-17-2022 13:00-0400 Diastolic blood pressure 77 mm[Hg] Dr. Noreen Katz Work Phone: 6(600)380-162970 [place] [address] 09-17-2022 13:00-0400 Heart rate 68 /min Dr. Noreen Katz Work Phone: [facility] 09-17-2022 13:00-0400 Respiratory rate 18 /min Dr. Noreen Katz Work Phone: [facility] 09-17-2022 13:00-0400 SaO2% (BldA) [Mass fraction] 100 % Dr. Noreen Katz Work Phone: [facility] 09-17-2022 13:00-0400 Systolic blood pressure 124 mm[Hg] Dr. Noreen Katz Work Phone: [facility] 05-14-2022 07:53-0400 Body height 172.[address] Noreen Katz Work Phone: [facility] 05-14-2022 07:53-0400 Body mass index (BMI) [Ratio] 27.3 kg/m2 Dr. Noreen Katz Work Phone: [facility] 05-14-2022 07:53-0400 Body temperature 97.6 [degF] Dr. Noreen Katz Work Phone: [facility] 05-14-2022 07:53-0400 Body weight 81.[address] Noreen Katz Work Phone: [facility] 05-14-2022 07:53-0400 Diastolic blood pressure 63 mm[Hg] Dr. Noreen Katz Work Phone: [facility] 05-14-2022 07:53-0400 Heart rate 52 /min Dr. Noreen Katz Work Phone: [facility] 05-14-2022 07:53-0400 Respiratory rate 18 /min Dr. Noreen Katz Work Phone: [facility] 05-14-2022 07:53-0400 SaO2% (BldA) [Mass fraction] 98 % Dr. Noreen Katz Work Phone: [facility] 05-14-2022 07:53-0400 Systolic blood pressure 145 mm[Hg] Dr. Noreen Katz Work Phone: [facility] 04-02-2022 10:22-0500 Body height 167.[address] Noreen Katz Work Phone: [facility] 04-02-2022 10:22-0500 Body weight 82.[address] Noreen Katz Work Phone: [facility] 04-01-2022 08:45-0500 Body mass index (BMI) [Ratio] 29.3 kg/m2 Dr. Noreen Katz Work Phone: [facility] 03-26-2022 14:23-0500 Body mass index (BMI) [Ratio] 29.3 kg/m2 Dr. Noreen Katz Work Phone: [facility] 03-26-2022 14:23-0500 Body weight 82.[address] Noreen Katz Work Phone: [facility] 03-26-2022 14:23-0500 Diastolic blood pressure 66 mm[Hg] Dr. Noreen Katz Work Phone: [facility] 03-26-2022 14:23-0500 Heart rate 50 /min Dr. Noreen Katz Work Phone: [facility] 03-26-2022 14:23-0500 Respiratory rate 18 /min Dr. Noreen Katz Work Phone: [facility] 03-26-2022 14:23-0500 Systolic blood pressure 148 mm[Hg] Dr. Noreen Katz Work Phone: [facility] 05-21-2021 10:31-0400 Body height 167.[address] Noreen Katz Work Phone: [facility] Work Phone: Encounters Encounter Date Encounter Type Care Provider Facility Start: 08-24-2024 ambulatory Noreen Katz Facility: [facility] Start: 12-11-2023 End: 12-11-2023 ambulatory Noreen Katz Facility:[facility] Start: 11-05-2023 End: 11-05-2023 ambulatory Benedict Gandhi Facility:[facility] Start: 10-15-2023 End: 10-15-2023 ambulatory Noreen Katz Facility:[facility] Start: 2023 End: [address] Noreen Katz Work Phone: [facility] Work Phone: Start: 2023 End: [address] Noreen Katz Work Phone: [facility]-Physical Therapy Work Phone: Start: 03-18-2023 End: 03-18-[address] Noreen Ktaz Work Phone: [facility] Work Phone: Start: 03-10-[address] Noreen cohen Work Phone: [facility]-Physical Therapy Work Phone: Start: 03-09-2023 End: 03-09-[address] Noreen Katz Work Phone: [facility] Work Phone: Start: 03-09-2023 End: 03-09-[address] Noreen Katz Work Phone: [facility] Work Phone: Start: 02-23-2023 End: 02-23-[address] Noreen Katz Work Phone: [facility] Work Phone: Start: 01-07-2023 End: 01-07-[address] Noreen Katz Work Phone: [facility] Work Phone: Start: 01-07-2023 End: 01-07-[address] Noreen Katz Work Phone: [facility] Work Phone: Start: 01-03-2023 End: 01-03-2023 Emergency department patient visit Dr. Noreen Katz Work Phone: [facility]-Emergency Department Work Phone: Start: 09-17-2022 End: 09-17-[address] Noreen Katz Work Phone: [facility] Work Phone: Start: 06-03-2022 End: 06-03-[address] Noreen Katz Work Phone: [facility] Work Phone: Start: 06-03-2022 End: 06-03-[address] Noreen Katz Work Phone: [facility]-Sleep Lab Start: 05-26-2022 End: 05-26-[address] Noreen Katz Work Phone: [facility] Work Phone: Start: 05-26-2022 End: 05-26-[address] [facility]ore[facility] Katz [facility] Start: 05-14-2022 End: 05-14-[address] Noreen Katz Work Phone: [facility]-Pulmonary Medicine [facility] Start: 04-02-2022 End: 04-02-2022 Admission to same day surgery center Dr. Noreen Katz Work Phone: [facility]-Assistant Program Manager/Special Procedures Start: 04-02-2022 End: 04-02-[address] Noreen Katz Work Phone: [facility] Work Phone: Start: 03-26-2022 End: 03-26-[address] Noreen Katz Work Phone: [facility] Work Phone: Start: 03-26-2022 End: 03-26-[address] Noreen Katz Work Phone: [facility]-Radiology, [facility] Start: 03-26-2022 End: 03-26-[address] Noreen Katz Work Phone: [facility] Start: 03-19-2022 Non-patient / Non-visit Dr. Sangeeta Katz Work Phone: [facility] Start: 06-19-2021 Non-patient / Non-visit Dr. Sangeeta Katz Work Phone: [facility] Start: 06-19-2021 End: 06-19-[address] Noreen Katz Work Phone: [facility]-Cardiovascular Services Start: 05-21-2021 End: 05-21-2021 Patient encounter procedure [facility]-Laboratory, [facility] Procedures Date Procedure Procedure Detail Performing [...] Activity Detail Author Catheterization of left heart [facility] Patient Education ED Sciatica [facility] Work Phone: Patient referral [facility] Work Phone: Polysomnography [facility] Immunizations Immunization Date Immunization Notes Care Provider Fa cility 07-19-2019 tetanus toxoid, redu sherman diphtheria toxoid, and acellular pertussis vaccine, adsorbed [facility] Payers Date Payer Category Payer Medicare [id number] 2024 Unknown [id number] 2023 Self-pay [id number] 2016 Unknown [id number] Unknown [facility] PACKAGE PLAN [id number] Unknown [id number] Unknown [id number] Unknown [id number] Unknown [id number] Social History Date Type Detail Facility Start: 07-19-2019 End: 03-18-2023 Tobacco smoking status NHIS Unknown if ever smoked [facility] Start: 08-27-2017 Occasional [facility] Start: 08-27-2017 None [facility] Start: 07-19-2019 Spouse/ Signif icant Other [facility] Start: 1955 Sex Assigned At Male [facility] Mental Status Date Assessment Result Facility 01-03-2023 Cognitive function Level Of Cons ciousness Awake;Alert;Appropriate;Follow s Commands [facility] Work Phone: Discharge summary 03-23-2023 Note Date & Type Note Facility 03-23-2023 Discharge summary Note Date/Time 2023 3:32pm [facility] Physical Therapy [facility] [place] [address] / REHABILITATION SERVICES DISCHARGE SUMMARY MR#: [id number] Acct: [id number] Name: DAI REYES Rep #: [id number] [...] please feel free to call me at [phone]. Thank you for the referral of thispatient. Sincerely, Eric Buck PT, Cert T, OCS Balance/Gait/Functional tests Balance/Special Test Scores Oswestry Low Back Score: 3 Improvement % Improvement: 95 <Electronically signed by Cee Patton PT. JOSEF DOVE> 03/23/23 [id number] CC: Dr. Noreen Katz MD ~ FERNY Signed [facility] Work Phone: Discharge summary 01-03-2023 Note Date & Type Note Facility 01-03-2023 Discharge summary Note Date/Time January 03, 2023 3:43pm [facility] Medical Records Department [address] [place] [address] Emergency Department Summary 01/03/23 MR#: [id number] Acct: [id number] Name: DAI REYES Rep #:[id number] : 1955 67 From: Cash Marcum DO PCP: Dr. Noreen Katz MD Status:REG ER Location: ED HPI History of Present Illness Chief Complaint: Other, Pain/Inj Narrative Narrative: 67-year-old male presenting with right gluteal pain that radiates down the posterior thigh. Symptoms started last evening. He denies any trauma. He states he was driving home from [place] and he noted that it is right [...] factors. No chest pain or shortnessof breath. [facility] Medical History PHILIPPE (dyspnea on exertion) Essential hypertension Hyperlipidemia Macular degeneration MARIO (obstructive sleep apnea) Unstable angina Home Medications vit C 250 mg-vit E 90 mg-zinc 40 mg-copper 1 fb-[id number]-[id number] capsule (PreserVision AREDS-2) 2 tab PO DAILY [...] problems, contact your Primary Care Provider. Call [facility] ([phone]) or report to the closest Emergency Room. Call 911 if necessary. 01/03/23 1493 <Electronically signed by Cash Marcum DO> Cosigner Signature (if applicable): CC: Dr. Noreen Katz MD ~ Signed [facility] Work Phone: Evaluation note Note Date & Type Note Facility Evaluation note No assessment information availa ble [facility] Work Phone: Evaluation note Note Date & Type Note Facility Evaluation note Diagnosis Onset Date Chest pain acute Essential hypertension chron ic Hyperlipidemia chronic [facility] Work Phone: Evaluation note Note Date & Type Note Facility Evaluation note Diagnosis Onset Date Chest pain acute Essential hypertension chron ic Hyperlipidemia chronic MARIO (obstructive sleep apnea) acute [facility] Work Phone: Evaluation note Note Date & Type Note Facility Evaluation note Diagnosis Onset Date Lumbar radiculopathy noneact matrin [facility] Work Phone: Evaluation note Note Date & Type Note Facility Evaluation note Diagnosis Onset Date Lumbar radiculopathy noneact martin Lumbar canal stenosis acute Lumbar foraminal stenosis [place] [facility] Work Phone: Family History No Family [...] July 19, 2019 1 :36pm Power of Supervisor [employer] Yes July 19, 2019 1:36pm Advance Directive Response Recorded Date/ Time Advance Directives on File No 2022 10:22am Name of Medical Power of Supervisor [employer] Sera April 02, 2022 10:22am Advance Directives Yes March 10:22am Living Will Yes April 02 023 10:22am Power of Supervisor [employer] Yes April 02, 2022 10:22am Advance Directive Response Recorded Date/ Time Advance Directives on File No [email or web address] 2022 11:22am Name of Medical Power of Supervisor [employer] Sera April 02, 2022 11:22am Advance Directives Yes March 11:22am Living Will Yes April 02 023 11:22am Power of Supervisor [employer] Yes April 02, 2022 11:22am Advance Directive Response Recorded Date/ Time Advance Directives Yes March 10:22am Living Will No January 03, 2 023 3:44pm Power of Supervisor [employer] No January 03, 2023 3:44pm Chief Complaint [...] Dr. Noreen Katz MD Primary Care Provider, [facility] [place] Provider Active Dr. Benedict Gandhi MD Attending [...] Provider, Referrin g Provider Active Myrtle Zaragoza STEAM DRIER TENDER, STEAM DRIER TENDER-C Attending Provider Active Team Status: Inactive Member Role Status Dates Dr. Noreen Katz MD Primary Care Provider, Attendin g Provider Active Team Status: Inactive Member Role Status Dates Dr. Noreen Katz MD Primary Care Provider Active Myrtle Zaragoza STEAM DRIER TENDER, STEAM DRIER TENDER-C Attending Provider, Referrin g Provider Active Team Status: Inactive Member Role Status Dates Dr. Noreen Katz MD Primary Care Provider, Referrin g Provider Active Rashawn Holder STEAM DRIER TENDER, STEAM DRIER TENDER-C Attending Provider Active Team Status: Inactive Member [...] section and content) DATE CREATED AUTHOR 08/19/2024 [facility] FOR RECORDS PERTAINING TO PATIENTS [...] BE BASED ON THE PRIMARY CLINICAL RECORDS. [facility]. provides no warranty or guarantee of the accuracy or completeness of information in this document.
== END | disposition home or self-care (01) ==
LOC: US 09:42
PROVIDERS: PCP Family Medicine
DX: R22.0 Localized swelling, mass and lump, head (principal)
CPT/HCPCS: 76536

== ENCOUNTER 2024-12-15 06:52 | Day surgery (SDC) | payer MEDICARE, OTHER, SELFPAY ==
--- NOTE | 2024-12-07 15:29 | PAT.ANESEVAL ---
Pre-Assessment Diagnosis/Proposed Procedure Planned Operative Procedure(s): (L) Excision of lesion on head Anesthesia History Anesthesia History - senior cytogenetics laboratory director: Anesthesia History - senior cytogenetics laboratory director Hx Hospitalization No 12/07/24 14:45 Any Problems With Anesthesia No 12/07/24 14:45 Cholinesterase deficiency No 12/07/24 14:45 You/Your Family Experience No 12/07/24 14:45 fever (hyperthermia) with Relationship Recent Exposure to Contagious No 07/14/23 06:13 Disease Does patient have nerve No 12/07/24 14:45 stimulator Patient instructed to have device shut off --Does patient have Pacemaker or ICD? When Was Last Pacemaker Check QUESTION #4 FULL TEXT: You/Your Family Experience fever (hyperthermia) with Anesthesia Last Oral Intake Last Oral intake: Last Oral Intake NPO since Meds taken in AM with sips of water? Meds patient instructed to take am of surgery PONV PONV - senior cytogenetics laboratory director: PONV - senior cytogenetics laboratory director Female No 12/07/24 14:45 HX of Motion Sickness No 12/07/24 14:45 HX of N/V After Surgery No 12/07/24 14:45 Non-Smoker Yes 12/07/24 14:45 Duration of Surgery greater No 12/07/24 14:45 than 60 minutes Number of Risk Factors 1 12/07/24 14:45 PONV Score Low Risk 12/07/24 14:45 Height & Weight Height & Weight: Anesthesia: Height & Weight Height 5 ft 7 in 11/24/24 13:35 Respiratory Assessment Respiratory Assessment - senior cytogenetics laboratory director: Respiratory Tract Infection Hx - senior cytogenetics laboratory director Hx Respiratory Tract Infection No 12/07/24 14:45 STOP Sleep Apnea STOP Sleep Apnea - senior cytogenetics laboratory director: STOP Sleep Apnea - senior cytogenetics laboratory director Hx Hypertension Yes: CONTROLLED WITH MED 12/07/24 14:45 Hx Sleep Apnea Yes: MOUTH PIECE 12/07/24 14:45 CPAP No 12/07/24 14:45 BIPAP No 12/07/24 14:45 Do you snore loudly (louder than talking or can be heard Do you often feel tired/ fatigued/ sleepy during daytime? Has anyone observed you stop breathing during sleep? STOP Results Positive 12/07/24 14:45 QUESTION #5 FULL TEXT : Do you snore loudly (louder than talking or can be heard through closed doors)? Tobacco Use History Tobacco Use History - senior cytogenetics laboratory director: Tobacco Use History - senior cytogenetics laboratory director Tobacco Use Smoking Status Former smoker 12/07/24 14:45 Hx Tobacco Use No 12/07/24 14:45 Years Smoking Packs Smoked per Day Smoking Cessation Date was No - quit smoking greater 12/07/24 14:45 within the last 15 years than 15 years ago Hx Smoking Cessation Date 02/09/74 12/07/24 14:45 Hx Smoking Cessation No 12/07/24 14:45 Counseling Hematologic Medial History Hematologic Hx - senior cytogenetics laboratory director: Hematologic Medical Hx - manager documentation Hx of Blood Transfusion Yes 12/07/24 14:45 Hx of Transfusion in last 3 No 12/07/24 14:45 Months Date of Last Transfusion (if within last 3 months) Ever experience any problems No 12/07/24 14:45 with transfusion(s)? Specify any problems Hx of Preganancy in last 3 N/A 12/07/24 14:45 Months Nurse Filling Out Transfusion NBUCHER 12/07/24 14:45 & Questions: Date: 12/07/24 12/07/24 14:45 Time: 14:46 12/07/24 14:45 Patient unable to answer at this time (ie. confused, unrespo /Reproduction History /Reproductive History - senior cytogenetics laboratory director: /Reproductive Hx- senior cytogenetics laboratory director Hx Now No 12/07/24 14:45 Gestational Age (in weeks): EDC: Hx Hx Para Hx Section SAB No 12/07/24 14:45 PFSH Medical History (Updated 12/07/24 @ 14:47 by Deborah Edwards) Hypertension Neoplasm of uncertain behavior of scalp Wears glasses Alcohol use DVT (deep venous thrombosis) Migraine headache Injury of head and neck Syncope Shortness of breath on exertion Former smoker Leg cramps History of pain when walking Cardiology follow-up encounter History of echocardiogram PHILIPPE (dyspnea on exertion) Hyperlipidemia Essential hypertension Unstable angina MARIO (obstructive sleep apnea) Macular degeneration Home Medications ?Medication ?Instructions ?Recorded ?Last Taken ?Type hydrochlorothiazide 25 mg tablet 25 mg PO DAILY #90 tabs 04/02/22 07/13/23 Rx Oral Appliace #1 ea 06/16/22 Unknown Rx mv-mn-folic 200 mcg-vit K 15 2 cap PO DAILY 04/14/23 07/13/23 History mcg-lutein 5 mg-zeaxanthin 1 mg capsule (PreserVision AREDS 2 Plus Multivit) amlodipine 10 mg tablet 10 mg PO QHS 06/30/23 07/13/23 History lisinopril 10 mg tablet 10 mg PO DAILY 06/30/23 07/14/23 History multivitamin with iron-mineral 2 tab PO DAILY 06/30/23 07/13/23 History ranolazine 500 mg tablet,extended 500 mg PO BID #180 TABLETS 02/12/24 Unknown Rx release,12 hr rosuvastatin 10 mg tablet 10 mg PO QDAY #90 tabs 05/26/24 Unknown Rx Allergy/AdvReac Type Severity Reaction Status Date / Time shellfish derived Allergy Other Verified 12/07/24 14:43 Family History Father Cancer Surgical History Hx of cataract surgery (11/02/23) History of back surgery (07/14/23) Hx of colonoscopy Hx of cardiac cath Social History Smoking Status: Former smoker how long ago did patient quit smokin years ago alcohol intake: current alcohol intake frequency: 0-2 drinks per day Alcohol type: beer substance use type: does not use caffeine: Yes Type: coffee Number of servings: 3 Audit: Pertinent Findings Pertinent Findings Echo (EF%) pertinent findings: 06/19/2021. Normal size function EF 60% pulmonary artery pressure 38 Consult pertinent findings: Cardiology 11/05/2023. Chest pain. Acute. Heart catheterization on 04/02/2022 showed nonobstructive coronary artery disease. Medical therapy. Most likely small vessel disease. Hypertension chronic. Well-controlled. Recommendation Anesthesia Recommendation Anesthesia recommendation: OPTIMIZED for anesthesia
[2024-12-15] VITALS (8 sets, daily range): BP systolic 104–140; BP diastolic 52–66; PULSE 48–60; RESP 12–20; TEMP 36.2–37.1; O2SAT 95–100; BMI 27.6
--- OUTSIDE RECORDS SUMMARY | 2024-12-15 07:02 | XMS RPT_ITS | CCD ---
Author Organization [facility] Care Team Providers Care Senior Cost Accountant Name Role Phone Dr. Noreen Katz Primary Care Provider Dr. Benedict Gandhi Attending Provider [phone] Noreen Katz Primary Care Provider Jamia Rios Attending Provider Dr. Noreen Valentin Referring Provider Dr. Benedict Gandhi Attending Provider [phone] Noreen Katz Primary Care Provider Jamia Rios Attending Provider Dr. Noreen Valentin Referring Provider Dr. Benedict Gandhi Attending Provider [phone] Nik MANAGER CASH, MANAGER CASH-C Myrtle Attending Provider [phone] Dr. Noreen Katz Primary Care Provider Dr. Noreen Katz Referring Provider Gallo MANAGER CASH, MANAGER CASH-C Rashawn Verduzco Attending Provider Dr. Noreen Katz Primary Care Provider Dr. Noreen Katz Referring Provider Dr. Guillermo Arceo Attending Provider Dr. Benedict Gandhi Attending Provider [phone] Noreen Katz MD Primary Care Provider McMorrow MANAGER CASHMichael Downs Attending Provider AlistairorrMichael Damon Referring Provider Dr. Noreen Katz MD Primary Care Physician Alistairhendersonla nena GRANT, Michael Attending Physician Dr. Noreen Ktaz MD Referring Provider Dr. Edmond Mo MD Attending Physician Edmond Mo Attending Unavailable Noreen Katz Referring Unavailable Noreen Katz Primary Care Unavailable AlistairhendersonMichael deutsch NP Referring Unavailable Alistairhendersonla nena SCHWARTZ, Michael Attending Unavailable Edmond Mo Referring Unavailable Edmond Mo Attending Unavailable Bienvenido Wall Primary Care Unavailable Allergies Allergy Classification Reported Allergen(s) Allergy Type Date of Onset Reaction(s) Facility (7 sources) Shellfish; Translations: [shellfish derived] Allergy to substance 07-19-2019 Other [facility] Medications Current Medications Medication Drug Class(es) Dates Sig (Normalized) Sig (Original) hydroCHLOROthiazide 25 mg oral tablet (20 sources) Thiazide Diuretic Start: 04-02-2022 End: 04-02-2022 take 1 tablet by mouth once daily Start: 07-19-2019 End: 04-02-2022 take 1 tablet by mouth once daily Hydrochlorothiazide 12.5 mg tablet Discontinued 12.5 mg PO DAILY July 19, 2019 12:00am April 02, 2022 1:56pm lisinopril 10 mg oral tablet (20 sources) Angiotensin Converting Enzyme Inhibitor Start: 06-30-2023 take 1 tablet by mouth once daily Start: 04-02-2022 End: 02-23-2023 take 1 tablet by mouth once daily Lisinopril 10 mg tablet Discontinued 10 mg PO DAILY 90 3 April 02, 2022 1:59pm February 23, 2023 3:55pm Multivitamin With Iron-Bone Glue Maker al tablet (2 sources) Start: 06-30-2023 Start: 06-30-2023 Multivitamin W ith Iron-Mineral tablet Active 2 {tbl} PO DAILY June 30, 2023 12:00am Multivitamin,Oa-Sicl-Zhlerhy s (Therems-M) 1 TABLET tablet (12 sources) Start: 06-21-2013 take 1 tablet by mouth once daily Multivitamin,Vj-Uacw-Isjjkkyt (Therems-M) 1 TABLET tablet Active 1 TABLET PO DAILY June 21, 2013 7:45am Start: 06-21-2013 End: 03-26-2022 take 1 tablet by mouth once daily Multivitamin,Ea-Hxqj-Apruemqd (Therems-M ) 1 TABLET tablet Discontinued 1 {tbl} PO DAILY June 21, 2013 12:00am March 26, 2022 3:32pm Supplement Start: 06-21-2013 End: 03-26-2022 take 1 tablet by mouth once daily Multivitamin,Fm-Erva-Sajckine (Therems-M ) 1 TABLET tablet Discontinued 1 TABLET PO DAILY June 21, 2013 12:00am March 26, 2022 3:32pm Start: 06-21-2013 End: 03-26-2022 take 1 tablet by mouth once daily Multivitamin,Iz-Rqxv-Phqaxtoz (Therems-M ) 1 TABLET tablet Discontinued 1 TABLET PO DAILY June 20, 2013 11:00pm March 26, 2022 2:32pm Wq-Pzm-Tx-Vit F-Ngyxbs-Kkftr nt (Preservision Areds 2 Plus Mv) 200 mcg-15 mcg- 5 mg-1 mg capsule (2 sources) Start: 04-14-2023 Start: 04-14-2023 St-Hch-Nz-Vit K-Djytab-Jrsewzr (Preservision Areds 2 Plus Mv) 200 mcg-15 mcg- 5 mg-1 mg capsule Active 2 NMA PO DAILY April 14, 2023 1:00am Oral Appliace (6 sources) Start: 06-16-2022 Oral Appliace Active 0 .ROUTE .MEDSUPPLY 1 0 June 16, 2022 12:00am MARIO As directed Start: 06-16-2022 Oral Appliace Active 0 .ROUTE .MEDSUPPLY 1 June 15, 2022 11:00pm As directed 12 hr ranolazine 500 mg extended release oral tablet (4 sources) Anti-anginal Start: 11-05-2023 End: 02-12-2024 take 1 tablet by mouth twice daily rosuvastatin calcium 10 mg oral tablet (20 sources) HMG-CoA Reductase Inhibitor Start: 11-05-2023 End: 05-26-2024 take 1 tablet by mouth once daily Start: 02-23-2023 End: 06-30-2023 take 1 tablet by mouth once daily Rosuvastatin 20 mg tablet Discontinued 20 mg PO DAILY February 23, 2023 1:00am June 30, 2023 9:16am Start: 03-26-2022 End: 09-17-2022 take 1 tablet by mouth once daily Rosuvastatin 20 mg tablet Discontinued 20 mg PO DAILY March 26, 2022 1:00am September 17, 2022 1:03pm Start: 06-21-2013 End: 03-26-2022 take 1 tablet by mouth once daily Rosuvastatin (Crestor) 5 MG tablet Discontinued 5 mg PO DAILY June 21, 2013 12:00am March 26, 2022 3:32pm Cholesterol Completed/Discontinued Medications Medication Drug Class(es) Dates Sig (Normalized) Sig (Original) acetaminophen 500 mg oral tablet (2 sources) Start: 07-15-2023 End: 10-15-2023 take 1 tablet by mouth every six hours Acetaminophen 500 mg Tablet Discontinued 500 mg PO EVERY 6 HOURS 28 7 0 July 15, 2023 12:00am October 15, 2023 8:53am acetaminophen 325 mg / HYDROcodone bitartrate 5 mg oral tablet (12 sources) Opioid Agonist Start: 03-14-2018 End: 03-17-2018 Hydrocodone-Acetami nophen 1 TABLET tablet Discontinued 1 {tbl} PO EVERY 6 HOURS NEEDED as needed for Pain 6 3 0 March 14, 2018 1:00am March 16, 2018 1:00am March 17, 2018 1:09am Back pain Dorsalgia, unspecified Start: 03-14-2018 End: 03-17-2018 take 1 tablet by mouth every six hours as needed Hydrocodone-Acetaminophen Discontinued 1 TABLET PO EVERY 6 HOURS NEEDED 6 3 March 14, 2018 12:00am March 17, 2018 12:09am amLODIPine 10 mg oral tablet (20 sources) Dihydropyridine Calcium Channel Mirela Start: 04-02-2022 End: 06-30-2023 take 1 tablet by mouth once daily Amlodipine 10 mg tablet Discontinued 10 mg PO DAILY 90 3 April 02, 2022 1:59pm June 30, 2023 9:16am Start: 03-26-2022 End: 04-02-2022 take 1 tablet by mouth once daily Amlodipine 5 mg tablet Discontinued 5 mg PO DAILY March 26, 2022 1:00am April 02, 2022 1:55pm aspirin 81 mg oral tablet (10 sources) Platelet Aggregation Inhibitor, Nonsteroidal Anti-inflammatory Drug Start: 04-02-2022 End: 09-17-2022 take 1 capsule by mouth once daily Aspirin 81 mg Capsule Discontinued 81 mg PO DAILY April 02, 2022 1:00am September 17, 2022 1:03pm cefadroxil 500 mg oral capsule (12 sources) Cephalosporin Antibacterial Start: 07-19-2019 End: 07-26-2019 take 1 capsule by mouth twice daily Cefadroxil 500 MG capsule Discontinued 500 mg PO TWICE A DAY 14 7 0 July 19, 2019 12:00am July 25, 2019 12:00am July 26, 2019 12:02am cyclobenzaprine hydrochloride 10 mg oral tablet (6 sources) Muscle Relaxant Start: 01-03-2023 End: 02-23-2023 take 1 tablet by mouth three times daily as needed for muscle spasms Cyclobenzaprine 10 mg tablet Discontinued 10 mg PO THREE TIMES A DAY as needed for Muscle Spasm 20 0 January 03, 2023 1:00am February 23, 2023 3:54pm docusate sodium 50 mg / sennosides, penitentiary 8.6 mg oral tablet (2 sources) Start: 07-15-2023 End: 11-05-2023 Sennosides-Docusate Sodium (Stool Softener-Stimulant Laxat) 8.6-50 mg Tablet Discontinued 2 {tbl} PO TWICE A DAY as needed for constipation 28 7 0 July 15, 2023 12:22pm November 05, 2023 9:19am etodolac 500 mg oral tablet (4 sources) Nonsteroidal Anti-inflammatory Drug Start: 02-23-2023 End: 04-14-2023 take 1 tablet by mouth twice daily Etodolac 500 mg tablet Discontinued 500 mg PO TWICE A DAY 30 0 February 23, 2023 1:00am April 14, 2023 9:57am Do not take in conjunction with other NSAID. Tylenol is okay. meloxicam 15 mg oral tablet (2 sources) Nonsteroidal Anti-inflammatory Drug Start: 07-15-2023 End: 11-05-2023 take 1 tablet by mouth once daily Meloxicam 15 mg Tablet Discontinued 15 mg PO DAILY 30 30 0 July 15, 2023 12:00am November 05, 2023 9:19am methocarbamol 500 mg oral tablet (2 sources) Muscle Relaxant Start: 07-15-2023 End: 11-05-2023 Methocarbamol 500 mg Tablet Discontinued 750 mg PO THREE TIMES A DAY as needed for Pain/spasms 20 5 0 July 15, 2023 12:21pm November 05, 2023 9:19am naproxen 500 mg oral tablet (6 sources) Nonsteroidal Anti-inflammatory Drug Start: 01-03-2023 End: 02-23-2023 take 1 tablet by mouth twice daily as needed for pain Naproxen (Naprosyn) 500 mg tablet Discontinued 500 mg PO TWICE A DAY as needed for pain 20 0 January 03, 2023 1:00am February 23, 2023 3:55pm oxyCODONE hydrochloride 5 mg oral tablet (2 sources) Opioid Agonist Start: 07-15-2023 End: 07-29-2023 take 2.5-5 mg by mouth every six hours as needed for pain Oxycodone 5 mg Tablet Discontinued 2.5 - 5 mg PO EVERY 6 HOURS as needed for pain 20 5 0 July 15, 2023 July 29, 2023 8:20am Status post laminectomy Other specified postprocedural states Vit C,X-Ig-Entno-Lutein -Zeaxan (Preservision Areds-2) 250-90-40-1 mg capsule (10 sources) Start: 03-26-2022 End: 02-23-2023 take 2 capsules by mouth once daily Vit C,O-Ui-Vybme-Lutein -Zeaxan (Preservision Areds-2) 250-90-40-1 mg capsule Discontinued 2 {tbl} PO DAILY March 26, 2022 1:00am February 23, 2023 3:55pm Start: 03-26-2022 End: 02-23-2023 Vit C,T-Rn-Flbpt-Lutein-Zeax an (Preservision Areds-2) 250-90-40-1 mg capsule Discontinued 2 TABLET PO DAILY March 26, 2022 12:00am February 23, 2023 2:55pm Start: 03-26-2022 Vit C,E-Zn-Vessel Specialist rq-Jwrblq-Nwdift (Preservision Areds-2) 250-90-40-1 mg capsule Active 2 TABLET PO DAILY March 26, 2022 1:00am Start: 03-26-2022 Vit C,E-Zn-Vessel Specialist ea-Wtugwu-Rcqmvd (Preservision Areds-2) 250-90-40-1 mg capsule Active 2 TABLET PO DAILY March 26, 2022 12:00am Problems Active Problems Problem Classification Problem Date Documented Da te Episodic/Chronic Coronary atherosclerosis and other heart disease (10 sources) Preinfarction syndrome; Translations: [Unstable angina] 03-26-2022 Chronic Disorders of lipid metabolism (18 sources) Hyperlipidemia; Translations: [Hyperlipidemia, unspecified] 03-25-2022 Chronic Esophageal disorders (12 sources) Gastroesophageal reflux disease; Translations: [Gastro-esophageal reflux disease without esophagitis] 08-28-2017 Chronic Essential hypertension (18 sources) Hypertensive disorder; Translations: [Essential (primary) hypertension] 03-25-2022 Chronic Immunizations and screening for infectious disease (12 sources) Requires tetanus and diphtheria vaccination; Translations: [Encounter for immunization] 07-20-2019 Episodic Neoplasms of unspecified nature or uncertain behavior (2 sources) 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; Translations: [Neoplasm of uncertain behavior of skin] 11-24-2024 Episodic Nonspecific chest pain (18 sources) Chest pain; Translations: [Chest pain, unspecified] 08-28-2017 Episodic Open wounds of extremities (12 sources) Puncture wound of middle finger of left hand; Translations: [Puncture wound with foreign body of left middle finger without damage to nail, initial encounter] 07-20-2019 Episodic Other bone disease and musculoskeletal deformities (4 sources) Segmental and somatic dysfunction; Translations: [Segmental and somatic dysfunction of lumbar region] 04-14-2023 Episodic Other lower respiratory disease (10 sources) Dyspnea on exertion; Translations: [Other forms of dyspnea] 03-26-2022 Episodic Residual codes; unclassified (8 sources) Obstructive sleep apnea syndrome; Translations: [Obstructive sleep apnea (adult) (pediatric)] 05-14-2022 Chronic Comment on above: WEARS ORAL APPLIANCE Residual codes; unclassified (2 sources) Obstructive sleep apnea (adult) (pediatric); Translations: [Obstructive sleep apnea (adult)(pediatric)] 05-14-2022 Chronic Residual codes; unclassified (2 sources) H/O Spinal surgery; Translations: [Other specified postprocedural states] 07-15-2023 Episodic Retinal detachments; defects; vascular occlusion; and retinopathy (12 sources) Degenerative disorder of macula ; Translations: [Unspecified macular degeneration] 03-25-2022 Chronic Spondylosis; intervertebral disc disorders; other back problems (14 sources) Radiculopathy, lumbar region; Translations: [Thoracic or lumbosacral neuritis or radiculitis, unspecified] 02-23-2023 Episodic Past or Other Problems Problem Classification Problem Date Documented Da te Episodic/Chronic Other skin disorders (1 source) Localized swelling, mass and lump, head; Translations: [Localized swelling, mass and lump, head] Onset: 08-29-2024 Episodic Results Test Name Value Interpretation Reference Range Facility MR/PAT.Juan Carlos 12-07-2024 MR/PAT.[facility] Medical Records Department [address] [place] [address] PAT - Anesthesia 12/07/24 1529 MR#: [id number] Acct: [id number] Name: DAI REYES Rep #: [id number] : 1955 69 From: Cody Siu MD PCP: Dr. Bienvenido Wall MD Status:PRE SDC Y Race: C Location: SDC Pre-Assessment Diagnosis/Proposed Procedure Planned Operative Procedure(s): (L) Excision of lesion on head Anesthesia History Anesthesia History - pharmacy care coordinator: Anesthesia History - pharmacy care coordinator Hx Hospitalization No 12/07/24 14:45 Any Problems With Anesthesia No 12/07/24 14:45 Cholinesterase deficiency No 12/07/24 14:45 You/Your Family Experience No 12/07/24 14:45 fever (hyperthermia) with Relationship Recent Exposure to Contagious No 07/14/23 06:13 Disease Does patient have nerve No 12/07/24 14:45 stimulator Patient instructed to have device shut off --Does patient have Pacemaker or ICD? When Was Last Pacemaker Check QUESTION #4 FULL TEXT: You/Your Family Experience fever (hyperthermia) with Anesthesia Last Oral Intake Last Oral intake: Last Oral Intake NPO since Meds taken in AM with sips of water? Meds patient instructed to take am of surgery PONV PONV - pharmacy care coordinator: PONV - pharmacy care coordinator Female No 12/07/24 14:45 HX of Motion Sickness No 12/07/24 14:45 HX of N/V After Surgery No 12/07/24 14:45 Non-Smoker Yes 12/07/24 14:45 Duration of Surgery greater No 12/07/24 14:45 than 60 minutes Number of Risk Factors 1 12/07/24 14:45 PONV Score Low Risk 12/07/24 14:45 Height Weight Height Weight: Anesthesia: Height Weight Height 5 ft 7 in 11/24/24 13:35 Respiratory Assessment Respiratory Assessment - pharmacy care coordinator: Respiratory Tract Infection Hx - pharmacy care coordinator Hx Respiratory Tract Infection No 12/07/24 14:45 STOP Sleep Apnea STOP Sleep Apnea - pharmacy care coordinator: STOP Sleep Apnea - pharmacy care coordinator Hx Hypertension Yes: CONTROLLED WITH MED 12/07/24 14:45 Hx Sleep Apnea Yes: MOUTH PIECE 12/07/24 14:45 CPAP No 12/07/24 14:45 BIPAP No 12/07/24 14:45 Do you snore loudly (louder than talking or can be heard Do you often feel tired/ fatigued/ sleepy during daytime? Has anyone observed you stop breathing during sleep? STOP Results Positive 12/07/24 14:45 QUESTION #5 FULL TEXT : Do you snore loudly (louder than talking or can be heard through closed doors)? 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 Specify any problems Hx of Preganancy in last 3 N/A 12/07/24 14:45 Months Nurse Filling Out Transfusion NBUCHER 12/07/24 14:45 Questions: Date: 12/07/24 12/07/24 14:45 Time: 14:46 12/07/24 14:45 Patient unable to answer at this time (ie. confused, unrespo /Reproducti on History /Reproducti ve History - pharmacy care coordinator: /Reproducti ve Hx- pharmacy care coordinator Hx Now No 12/07/24 14:45 Gestational Age (in weeks): EDC: Hx Hx Para Hx Section SAB No 12/07/24 14:45 PFS Medical History (Updated 12/07/24 @ 14:47 by Deborah Edwards) Hypertension Neoplasm of uncertain behavior of scalp Wears glasses Alcohol use DVT (deep venous thrombosis) Migraine headache Injury of head and neck Syncope Shortness of breath on exertion Former smoker Leg cramps History of pain when walking Cardiology follow-up encounter History of echocardiogram PHILIPPE (dyspnea on exertion) Hyperlipidemia Essential hypertension Unstable angina MARIO (obstructive sleep apnea) Macular degeneration Home Medications ???Medication ???Instructions ???Recorded ???Last Taken ???Type hydrochlorothiazide 25 mg tablet 25 mg PO DAILY #90 tabs 04/02/22 0 07/13/23 Rx Oral Appliace #1 ea 06/16/22 Unknown Rx mv-mn-folic 200 mcg-vit K 15 2 cap PO DAILY 04/14/23 07/13/23 H istory mcg-lutein 5 mg-zeaxanthin 1 mg capsule (P (more content not included)... Normal [facility] Plastic Surgery Visit Report on 11-24-2024 Plastic Surgery Visit Report [facility] Plastic Reconstructive Surgery [address], [address] [place] [address] OFFICE VISIT Date of Service: 11/24/24 MR#: [id number] Acct: [id number] Name: DAI REYES Rep #: [id number] : 1955 Provider: Dr. Edmond Mo MD Age/Sex: 69/M Location: [facility] Status: Signed Pt seen evaluated w/TOBIAS. I personally interviewed exam the pt. I was involved in all aspects of pt's orders, interpretation of results treatment The scalp mass is quite mobile and superficial. I talked to the patient but the risks, benefits, and alternatives to removal and he elected to proceed. He understands the risks of bleeding, infection, damage to surrounding structures, wound healing complications/wound formation, and the risks of anesthesia. Intake Vital Signs 3 11/05/23 09:15 11/24/24 13:35 Height 5 ft 7 in 5 ft 7 in Weight: 178 lb BMI 27.8 BP 158/65 H Blood Pressure Location Rt brachial Position Sitting Respiration 18 Pulse 57 L Pulse Source Monitor Pulse Oximetry (%) 97 Oxygen Delivery Method room air Intake Visit Reasons: LUMP ON HEAD Chief Complaint: lump on head Is patient in pain?: No Allergies shellfish derived Allergy (Verified 11/24/24 13:34) Other Medications 3 ???Medication ???Instructions ???Recorded ???Confirmed ???Type hydrochlorothiazide 25 mg tablet 25 mg PO DAILY #90 tabs 04/02/22 1 Rx Oral Appliace #1 ea 06/16/22 11/24/24 Rx mv-mn-folic 200 mcg-vit K 15 2 cap PO DAILY 04/14/23 11/24/24 H istory mcg-lutein 5 mg-zeaxanthin 1 mg capsule (PreserVision AREDS 2 Plus Multivit) amlodipine 10 mg tablet 10 mg PO QHS 06/30/23 11/24/24 His tory lisinopril 10 mg tablet 10 mg PO DAILY 06/30/23 11/24/24 H istory multivitamin with iron-mineral 2 tab PO DAILY 06/30/23 11/24/24 H istory ranolazine 500 mg tablet,extended 500 mg PO BID #180 TABLETS 11/24/24 Rx release,12 hr rosuvastatin 10 mg tablet 10 mg PO QDAY #90 tabs 05/26/24 Rx Have you fallen in the past year?: No PFSH Medical History (Updated 11/24/24 @ 14:00 by BARBARA Emmanuel) Neoplasm of uncertain behavior of scalp Wears glasses Alcohol use DVT (deep venous [...] Type: coffee Number of servings: 3 HPI LUMP ON HEAD Details: Patient is a 69-year-old male presenting today for initial evaluation of left sided scalp lesion that is been present since childhood but steadily increase in size. He fell off a roof at age 7 and a laceration repaired, side. He states recently his more dresser has been mostly lump has been growing. He denies drainage, pain, fever, chills, night sweats, unintentional weight loss, lymph node swelling. Past medical history significant for MARIO, hypertension, hyperlipidemia. He is a former smoker, denies diabetes. He had an unprovoked left leg DVT and was treated with subcu Lovenox many years ago he states. He has never had a recurrence of clots and is not on any blood thinners chronically. ROS Details General: Denies fever, chills HEENT: Denies headaches, vision changes, sore throat Cardio: Denies chest pain, leg edema Pulmonary: Denies shortness of pain, cough, wheezing GI: Denies nausea, vomiting, diarrhea General General: Yes good health; No fatigue, fever(s) or weight loss HENMT HENMT: No rhinitis, sore throat/mouth sore, nasal congestion, contacts or glaucoma Endo Endocrine: No thyroid disease, polydipsia, heat intolerance, cold intolerance, hepatitis or excessive urine Skin Skin: No Bleeding, bruising, changing moles or suspicious lesion Musc Musculoskeletal: Yes back pain; No joint pain, joint stiffness, muscle weakness, osteoarthritis or Muscle aches/ myalgia Neuro Neurological: No headache(s), No lightheadedness and No numbness Cardio Cardiovascular: Yes chest pain; No pacemaker, fatigue or shortness of breat with exertion (more content not included)... Normal [facility] Head/Neck Soft Tissueon 07- Head/Neck Soft Tissue [facility] Imaging Services [address] [place] [address] Head/Neck Soft Tissue MR#: [id number] Acct: [id number] Name: DAI REYES Rep #: [id number] : 1955 M 69 From: Avelino raman MD PCP: Dr. Noreen Katz MD Status: REG CLI Study: Head/Neck Soft Tissue Date of Exam: 08/24/24 Exam# [id number] Ordering Dr: Michael Landis NP, NP PROCEDURE: HEAD/NECK SOFT TISSUE 08/24/2024. Patient states he has had this lumps in childhood although recent fall caused to increase in size. REASON FOR EXAM: SCALP MASS TECHNIQUE: HEAD/NECK SOFT TISSUE COMPARISON: None FINDINGS: The palpable lump corresponds to a 1.5 cm 1.3 cm x 0.5 cm well-defined hypoechoic nodule just deep to the scalp. This may represent a hematoma. Targeted aspiration recommended for further evaluation. US/Head/Neck Soft Tissue IMPRESSION: The palpable lump corresponds to a 1.5 cm x 1.3 cm x 0.5 cm well-defined hypoechoic nodule just deep to the scalp. Tissue diagnosis recommended. Reading Location: [place] [address] CC: Michael Landis; Dr. Noreen Katz MD Birdcage Assembler: Signed Normal [facility] Absolute lymphocyte countOrd ered By: Dr. Katz on 05-26-2022 Lymphocytes Auto (Unsp spec) [#/Vol] 1.71 10*3/uL 0.83-4.51 [facility] Basophil percentageOrdered B y: Dr. Katz on 05-26-2022 Basophils/100 WBC (Bld) 0.8 % 0-1 [facility] Chloride [Moles/Vol] 105 mmol/L 98-107 [facility] Cholesterol [Mass/Vol] 208 mg/dL <200 [facility] Comment on above: <200 mg/dL Desirable 200-240 mg/dL Borderline >240 mg/dL High Risk Eosinophils/100 WBC (Bld) 2.2 % 0-5 [facility] Glucose [Mass/Vol] 188 mg/dL 74-106 [facility] Comment on above: Fasting Glucose resu lt greater than or equal to 126 mg/dL suggests DIABETES MELLITUS per A.D.A. criteria. Neutrophils (Bld) [#/Vol] 2.7 10*3/uL 2.0-7.7 [facility] Neutrophils/100 WBC (Bld) 54.3 % 47-70 [facility] Potassium [Moles/Vol] 3.8 mmol/L 3.5-5.1 [facility] Sodium [Moles/Vol] 135 mmol/L 136-145 [facility] Testosterone [Mass/Vol] 315.18 ng/dL [facility] Comment on above: CENTRAL 90% REFERENC E RANGES MALE AGE <50 197.44 - 669.58 ng/dL MALE AGE > or = 50 187.72 - 684.19 ng/dL FEMALE AGE <50 8.38 - 35.01 ng/dL FEMALE AGE > or = 50 <7.00 - 35.92 ng/dL Effective as of 09/04/20 Triglyceride [Mass/Vol] 153 mg/dL <199 [facility] Comment on above: The drugs N-Acetylcy steine and Metamizole may falsely depress this assay.Serum Triglycerides Reference Interval Normal <150 mg/dL Borderline high 150 - 199 mg/dL High 200 - 499 mg/dL Very High > or = 500 mg/dL WBC (Bld) [#/Vol] 4.9 10*3/uL 4.4-11.0 [facility] Blood erythrocytes count (nu mber/volume)Ordered By: Dr. Katz on 05-26-2022 RBC (Bld) [#/Vol] 4.29 10*6/uL 4.6-6.2 [facility] Blood hemoglobin measurement (mass/volume)Ordered By: Dr. Katz on 05-26-2022 Hemoglobin (Bld) [Mass/Vol] 13.7 g/dL 13.0-16.5 [facility] Blood lymphocytes/100 leukoc ytesOrdered By: Dr. Katz on 05-26-2022 Lymphocytes/100 WBC (Bld) 34.8 % 19-41 [facility] Blood monocytes/100 leukocyt esOrdered By: Dr. Katz on 05-26-2022 Monocytes/100 WBC (Bld) 7.7 % 0-10 [facility] Blood platelet mean volumeOr dered By: Dr. Katz on 05-26-2022 Platelet mean volume (Bld) [Entitic vol] 11.4 fL 6.2-12.0 [facility] Determination of erythrocyte mean corpuscular volume (MCV)Ordered By: Dr. Katz on 05-26-2022 MCV (RBC) [Entitic vol] 89.5 fL 80-94 [facility] Erythrocyte sedimentation ra teOrdered By: Dr. Katz on 05-26-2022 ESR (Bld) [Velocity] 10 mm/h 0-20 [facility] Hematocrit Auto (Bld) [Volum e fraction]Ordered By: Dr. Katz on 05-26-2022 Hematocrit (Bld) [Volume fraction] 38.4 % 40-54 [facility] Laboratory - Chemistry and C hemistry - challengeOrdered By: Dr. Katz on 05-26-2022 ALT [Catalytic activity/Vol] 42 U/L 16-61 [facility] CO2 [Moles/Vol] 24.0 mmol/L 21.0-32.0 [facility] Urea nitrogen/Creatinine [Mass ratio] 12.6 mg/mg 10-20 [facility] Laboratory - Hematology and Cell countsOrdered By: Dr. Katz on 05-26-2022 Erythrocyte distribution width (RBC) [Entitic vol] 42.5 fL 35.1-43.9 [facility] Erythrocyte distribution width (RBC) [Ratio] 13.0 % 11.6-14.6 [facility] Immature granulocytes/100 WBC (Bld) 0.200 % 0.0-0.9 [facility] Comment on above: IG% - Immature Granu locytes (promyelocytes, myelocytes and metamyelocytes) > 1% indicates that a LEFT SHIFT is Present. MCH (RBC) [Entitic mass] 31.9 pg 27.0-32.0 [facility] Nucleated RBC/100 WBC (Bld) [Ratio] 0 % 0-5 [facility] Auto (RBC) [Mass/Vol]Or dered By: Dr. Katz on 05-26-2022 MCHC (RBC) [Mass/Vol] 35.7 g/dL 32-36 [facility] No Panel InformationOrdered By: Dr. Katz on 05-26-2022 Urine Microalbumin/Creatinine Ratio 13.0 mg/g CRE <30 [facility] Estimated GFR (MDRD) Amer 112 mL/min >60 [facility] Comment on above: GFR Calc Estimated GFR (MDRD) Non-Af Amer 93 mL/min >60 [facility] Comment on above: Non- GFR Calc Thyroid Stimulating Hormone (TSH) 1.85 uIU/mL 0.358-3.74 [facility] Platelets bldOrdered By: Dr. Katz on 05-26-2022 Platelets (Bld) [#/Vol] 236 10*3/uL 150-450 [facility] Serum or plasma calcium hector urement (mass/volume)Ordered By: Dr. Katz on 05-26-2022 Calcium [Mass/Vol] 8.6 mg/dL 8.5-10.1 [facility] Serum or plasma cholesterol in HDL measurement (mass/volume)Ordered By: Dr. Katz on 05-26-2022 Cholesterol in HDL [Mass/Vol] 48 mg/dL >40 [facility] Comment on above: The drugs N-Acetylcy steine and Metamizole may falsely depress this assay. Reference Range HDL <40 mg/dL Low HDL Cholesterol HDL >or= 60 mg/dL High HDL Cholesterol Serum or plasma cholesterol in VLDL measurement (mass/volume)Ordered By: Dr. Katz on 05-26-2022 Cholesterol in VLDL [Mass/Vol] 31 mg/dL 5-40 [facility] Serum or plasma creatinine m easurement (mass/volume)Ordered By: Dr. Katz on 05-26-2022 Creatinine [Mass/Vol] 0.87 mg/dL 0.70-1.30 [facility] Comment on above: The validity of the calculated GFR & GFRAA in patients over 70 years has not been determined. Clinical correlation is essential. Serum or plasma low density lipoprotein (LDL) cholesterol measurement (mass/volume)Ordered By: Dr. Katz on 05-26-2022 Cholesterol in LDL [Mass/Vol] 129 mg/dL 0-130 [facility] Serum or plasma urea nitroge n measurement (mass/volume)Ordered By: Dr. Katz on 05-26-2022 Urea nitrogen [Mass/Vol] 11 mg/dL 7-18 [facility] Thin prep Papanicolaou smear with manual screeningOrdered By: Dr. Katz on 05-26-2022 Thin prep Papanicolaou smear with manual screening 25.1 mg/L NO RANGE EST. [facility] Thin prep Papanicolaou smear with manual screening 25 U/L 15-37 [facility] Thin prep Papanicolaou smear with manual screening 6 5-15 [facility] Urine creatinine measurement (mass/volume)Ordered By: Dr. Katz on 05-26-2022 Creatinine (U) [Mass/Vol] 193.00 mg/dL NO RANGE EST. [facility] Whole blood hemoglobin A1c/t otal hemoglobin ratio (mass fraction)Ordered By: Dr. Katz on 05-26-2022 HbA1c (Bld) [Mass fraction] 5.5 % 3.8-5.6 [facility] Comment on above: Normal < 5.7 % Predi abetic 5.7 - 6.4 % Diabetic >or= 6.5 % Please note range changes. Absolute lymphocyte countOrd ered By: Dr. Gandhi on 03-26-2022 Lymphocytes Auto (Unsp spec) [#/Vol] 2.15 10*3/uL 0.83-4.51 [facility] Basophil percentageOrdered B y: Dr. Gandhi on 03-26-2022 Basophils/100 WBC (Bld) 0.5 % 0-1 [facility] Chloride [Moles/Vol] 104 mmol/L 98-107 [facility] Eosinophils/100 WBC (Bld) 2.5 % 0-5 [facility] Glucose [Mass/Vol] 111 mg/dL 74-106 [facility] Comment on above: Fasting Glucose resu lt from 100 to 125 mg/dL suggests IMPAIRED HOMEOSTASIS per A.D.A. criteria. Neutrophils (Bld) [#/Vol] 3.6 10*3/uL 2.0-7.7 [facility] Neutrophils/100 WBC (Bld) 55.2 % 47-70 [facility] Potassium [Moles/Vol] 4.0 mmol/L 3.5-5.1 [facility] Sodium [Moles/Vol] 140 mmol/L 136-145 [facility] WBC (Bld) [#/Vol] 6.4 10*3/uL 4.4-11.0 [facility] Blood erythrocytes count (nu mber/volume)Ordered By: Dr. Gandhi on 03-26-2022 RBC (Bld) [#/Vol] 4.75 10*6/uL 4.6-6.2 [facility] Blood hemoglobin measurement (mass/volume)Ordered By: Dr. Gandhi on 03-26-2022 Hemoglobin (Bld) [Mass/Vol] 15.1 g/dL 13.0-16.5 [facility] Blood lymphocytes/100 leukoc ytesOrdered By: Dr. Gandhi on 03-26-2022 Lymphocytes/100 WBC (Bld) 33.4 % 19-41 [facility] Blood monocytes/100 leukocyt esOrdered By: Dr. Gandhi on 03-26-2022 Monocytes/100 WBC (Bld) 8.1 % 0-10 [facility] Blood platelet mean volumeOr dered By: Dr. Gandhi on 03-26-2022 Platelet mean volume (Bld) [Entitic vol] 10.9 fL 6.2-12.0 [facility] Determination of erythrocyte mean corpuscular volume (MCV)Ordered By: Dr. Gandhi on 03-26-2022 MCV (RBC) [Entitic vol] 90.1 fL 80-94 [facility] Hematocrit Auto (Bld) [Volum e fraction]Ordered By: Dr. Gandhi on 03-26-2022 Hematocrit (Bld) [Volume fraction] 42.8 % 40-54 [facility] INR in Blood by Coagulation assayOrdered By: Dr. Gandhi on 03-26-2022 INR Coag (Bld) [Relative time] 1.1 {INR} [facility] Laboratory - Chemistry and C hemistry - challengeOrdered By: Dr. Gandhi on 03-26-2022 CO2 [Moles/Vol] 26.0 mmol/L 21.0-32.0 [facility] Urea nitrogen/Creatinine [Mass ratio] 17.4 mg/mg 10-20 [facility] Laboratory - CoagulationOrde red By: Dr. Gandhi on 03-26-2022 aPTT Coag (Bld) [Time] 26.4 s 24.1-36.2 [facility] PT Coag (PPP) [Time] 13.4 s 11.7-14.9 [facility] Laboratory - Hematology and Cell countsOrdered By: Dr. Gandhi on 03-26-2022 Erythrocyte distribution width (RBC) [Entitic vol] 43.9 fL 35.1-43.9 [facility] Erythrocyte distribution width (RBC) [Ratio] 13.2 % 11.6-14.6 [facility] Immature granulocytes/100 WBC (Bld) 0.300 % 0.0-0.9 [facility] Comment on above: IG% - Immature Granu locytes (promyelocytes, myelocytes and metamyelocytes) > 1% indicates that a LEFT SHIFT is Present. MCH (RBC) [Entitic mass] 31.8 pg 27.0-32.0 [facility] Nucleated RBC/100 WBC (Bld) [Ratio] 0 % 0-5 [facility] MCHC Auto (RBC) [Mass/Vol]Or dered By: Dr. Gandhi on 03-26-2022 MCHC (RBC) [Mass/Vol] 35.3 g/dL 32-36 [facility] No Panel InformationOrdered By: Dr. Gandih on 03-26-2022 Estimated GFR (MDRD) Amer 113 mL/min >60 [facility] Comment on above: GFR Calc Estimated GFR (MDRD) Non-Af Amer 94 mL/min >60 [facility] Comment on above: Non- GFR Calc Platelets bldOrdered By: Dr. Gandhi on 03-26-2022 Platelets (Bld) [#/Vol] 232 10*3/uL 150-450 [facility] Serum or plasma calcium hector urement (mass/volume)Ordered By: Dr. Gandhi on 03-26-2022 Calcium [Mass/Vol] 9.5 mg/dL 8.5-10.1 [facility] Serum or plasma creatinine m easurement (mass/volume)Ordered By: Dr. Gandhi on 03-26-2022 Creatinine [Mass/Vol] 0.86 mg/dL 0.70-1.30 [facility] Comment on above: The validity of the calculated GFR & GFRAA in patients over 70 years has not been determined. Clinical correlation is essential. Serum or plasma urea nitroge n measurement (mass/volume)Ordered By: Dr. Gandhi on 03-26-2022 Urea nitrogen [Mass/Vol] 15 mg/dL 7-18 [facility] Thin prep Papanicolaou smear with manual screeningOrdered By: Dr. Gandhi on 03-26-2022 Thin prep Papanicolaou smear with manual screening 10 - [facility] Absolute lymphocyte counton 05-21-2021 Lymphocytes Auto (Unsp spec) [#/Vol] 1.73 10*3/uL 0.83-4.51 [facility] Work Phone: Basophil percentageon 2021 Basophils/100 WBC (Bld) 0.8 % 0-1 [facility] Work Phone: Chloride [Moles/Vol] 106 mmol/L 98-107 [facility] Work Phone: Cholesterol [Mass/Vol] 242 mg/dL <200 [facility] Work Phone: Comment on above: <200 mg/dL Desirable 200-240 mg/dL Borderline >240 mg/dL High Risk Eosinophils/100 WBC (Bld) 2.7 % 0-5 [facility] Work Phone: Glucose [Mass/Vol] 135 mg/dL 74-106 [facility] Work Phone: Comment on above: Fasting Glucose resu lt greater than or equal to 126 mg/dL suggests DIABETES MELLITUS per A.D.A. criteria. Neutrophils (Bld) [#/Vol] 3.0 10*3/uL 2.0-7.7 [facility] Work Phone: Neutrophils/100 WBC (Bld) 56.2 % 47-70 [facility] Work Phone: Potassium [Moles/Vol] 3.8 mmol/L 3.5-5.1 [facility] Work [facility]: Sodium [Moles/Vol] 139 mmol/L 136-145 [facility] Work Phone: Testosterone [Mass/Vol] 419.06 ng/dL [facility] Work Phone: Comment on above: CENTRAL 90% REFERENC E RANGES MALE AGE <50 197.44 - 669.58 ng/dL MALE AGE > or = 50 187.72 - 684.19 ng/dL FEMALE AGE <50 8.38 - 35.01 ng/dL FEMALE AGE > or = 50 <7.00 - 35.92 ng/dL Effective as of 09/04/20 Triglyceride [Mass/Vol] 243 mg/dL [facility] Work Phone: Comment on above: The drugs N-Acetylcy steine and Metamizole may falsely depress this assay.Serum Triglycerides Reference Interval Normal <150 mg/dL Borderline high 150 - 199 mg/dL High 200 - 499 mg/dL Very High > or = 500 mg/dL WBC (Bld) [#/Vol] 5.3 10*3/uL 4.4-11.0 [facility] Work Phone: Blood erythrocytes count (nu mber/volume)on 05-21-2021 RBC (Bld) [#/Vol] 4.67 10*6/uL 4.6-6.2 [facility] Work Phone: Blood hemoglobin measurement (mass/volume)on 05-21-2021 Hemoglobin (Bld) [Mass/Vol] 14.5 g/dL 13.0-16.5 [facility] Work Phone: Blood lymphocytes/100 leukoc yteson 05-21-2021 Lymphocytes/100 WBC (Bld) 32.9 % 19-41 [facility] Work Phone: Blood monocytes/100 leukocyt eson 05-21-2021 Monocytes/100 WBC (Bld) 7.0 % 0-10 [facility] Work Phone: Blood platelet mean volumeon 05-21-2021 Platelet mean volume (Bld) [Entitic vol] 11.0 fL 6.2-12.0 [facility] Work Phone: Determination of erythrocyte mean corpuscular volume (MCV)on 05-21-2021 MCV (RBC) [Entitic vol] 88.4 fL 80-94 [facility] Work Phone: Erythrocyte sedimentation ra yo 05-21-2021 ESR (Bld) [Velocity] 8 mm[facility]h 0-[facility]: Hematocrit Auto (Bld) [Volum e fraction]on 05-21-2021 Hematocrit (Bld) [Volume fraction] 41.3 % 40-54 [facility] Work Phone: Laboratory - Chemistry and C hemistry - challengeon 05-21-2021 ALT [Catalytic activity/Vol] 56 U/L 16-61 [facility] Work Phone: CO2 [Moles/Vol] 28.0 mmol/L 21.0-32.0 [facility] Work Phone: Urea nitrogen/Creatinine [Mass ratio] 15.6 mg/mg 10-20 [facility] Work Phone: Laboratory - Hematology and Cell countson 05-21-2021 Erythrocyte distribution width (RBC) [Entitic vol] 42.5 fL 35.1-43.9 [facility] Work Phone: Erythrocyte distribution width (RBC) [Ratio] 13.1 % 11.6-14.6 [facility] Work Phone: Immature granulocytes/100 WBC (Bld) 0.400 % 0.0-0.9 [facility] Work Phone: Comment on above: IG% - Immature Granu locytes (promyelocytes, myelocytes and metamyelocytes) > 1% indicates that a LEFT SHIFT is Present. MCH (RBC) [Entitic mass] 31.0 pg 27.0-32.0 [facility] Work Phone: Nucleated RBC/100 WBC (Bld) [Ratio] 0 % 0-5 [facility] Work Phone: MCHC Auto (RBC) [Mass/Vol]on 05-21-2021 MCHC (RBC) [Mass/Vol] 35.1 g/dL 32-36 [facility] Work Phone: No Panel Informationon 05-21 Estimated GFR (MDRD) Amer 109 mL/min >60 [facility] Work Phone: Comment on above: GFR Calc Estimated GFR (MDRD) Non-Af Amer 90 mL/min >60 [facility] Work Phone: Comment on above: Non- GFR Calc Thyroid Stimulating Hormone (TSH) 2.19 uIU/mL 0.358-3.74 [facility] Work Phone: Platelets bldon 05-21-2021 Platelets (Bld) [#/Vol] 247 10*3/uL 150-450 [facility] Work Phone: Serum or plasma calcium hector urement (mass/volume)on 05-21-2021 Calcium [Mass/Vol] 9.1 mg/dL 8.5-10.1 [facility] Work Phone: Serum or plasma cholesterol in HDL measurement (mass/volume)on 05-21-2021 Cholesterol in HDL [Mass/Vol] 47 mg/dL [facility] Work Phone: Comment on above: The drugs N-Acetylcy steine and Metamizole may falsely depress this assay. Reference Range HDL <40 mg/dL Low HDL Cholesterol HDL >or= 60 mg/dL High HDL Cholesterol Serum or plasma cholesterol in VLDL measurement (mass/volume)on 05-21-2021 Cholesterol in VLDL [Mass/Vol] 49 mg/dL 5-40 [facility] Work Phone: Serum or plasma creatinine m easurement (mass/volume)on 04-12-2022 Creatinine [Mass/Vol] 0.90 mg/dL 0.70-1.30 [facility] Work Phone: Comment on above: The validity of the calculated GFR & GFRAA in patients over 70 years has not been determined. Clinical correlation is essential. Serum or plasma low density lipoprotein (LDL) cholesterol measurement (mass/volume)on 05-21-2021 Cholesterol in LDL [Mass/Vol] 146 mg/dL 0-130 [facility] Work Phone: Serum or plasma urea nitroge n measurement (mass/volume)on 05-21-2021 Urea nitrogen [Mass/Vol] 14 mg/dL 7-18 [facility] Work Phone: Thin prep Papanicolaou smear with manual screeningon 05-21-2021 Thin prep Papanicolaou smear with manual screening 23 U/L 15-37 [facility] Work Phone: Thin prep Papanicolaou smear with manual screening 5 5-15 [facility] Work Phone: Vital Signs Date Time Vital Sign Value Performing Clinician Faci lity 11-24-2024 13:35-0400 Body height 170.[address] Noreen Katz MD Work Phone: [facility] 11-24-2024 13:35-0400 Body mass index (BMI) [Ratio] 27.8 kg/m2 Dr. Noreen Katz MD Work Phone: [facility] 11-24-2024 13:35-0400 Body weight 80.[address] Noreen Katz MD Work Phone: [facility] 11-24-2024 13:35-0400 Diastolic blood pressure 65 mm[Hg] Dr. Noreen Katz MD Work Phone: [facility] 11-24-2024 13:35-0400 Heart rate 57 /min Dr. Noreen Katz MD Work Phone: [facility] 11-24-2024 13:35-0400 Respiratory rate 18 /min Dr. Noreen Katz MD Work Phone: [facility] 11-24-2024 13:35-0400 SaO2% (BldA) [Mass fraction] 97 % Dr. Noreen Katz MD Work Phone: [facility] 11-24-2024 13:35-0400 Systolic blood pressure 158 mm[Hg] Dr. Noreen Katz MD Work Phone: 4(692)[phone] [place] [address] 02-23-2023 14:53-0500 Body height 173.[address] Noreen Katz Work Phone: [facility] 02-23-2023 14:53-0500 Body mass index (BMI) [Ratio] 26.5 kg/m2 Dr. Noreen Katz Work Phone: 5(650)[phone] [address] 02-23-2023 14:53-0500 Body weight 80.[address] Noreen Katz Work Phone: 5(033)[phone] [address] 01-03-2023 16:55-0500 Diastolic blood pressure 58 mm[Hg] Dr. Noreen Katz Work Phone: 6(477)[phone] [place] [address] 01-03-2023 16:55-0500 Heart rate 72 /min Dr. Noreen Katz Work Phone: 4(342)[phone] [place] [address] 01-03-2023 16:55-0500 Respiratory rate 16 /min Dr. Noreen Katz Work Phone: 8(542)[phone] [place] [address] 01-03-2023 16:55-0500 SaO2% (BldA) [Mass fraction] 99 % Dr. Noreen Katz Work Phone: [facility] 01-03-2023 16:55-0500 Systolic blood pressure 168 mm[Hg] Dr. Noreen Katz Work Phone: [facility] 01-03-2023 15:12-0500 Body height 172.[address] Noreen Katz Work Phone: [facility] 01-03-2023 15:12-0500 Body mass index (BMI) [Ratio] 28.1 kg/m2 Dr. Noreen Katz Work Phone: [facility] 01-03-2023 15:12-0500 Body temperature 98.5 [degF] Dr. Noreen Katz Work Phone: [facility] 01-03-2023 15:12-0500 Body weight 83.[address] Noreen Katz Work Phone: [facility] 09-17-2022 13:00-0400 Body mass index (BMI) [Ratio] 26.4 kg/m2 Dr. Noreen Katz Work Phone: [facility] 09-17-2022 13:00-0400 Body weight 78.[address] Noreen Katz Work Phone: 1(171)[phone] [address] 09-17-2022 13:00-0400 Diastolic blood pressure 77 mm[Hg] Dr. Noreen Katz Work Phone: 8(499)[phone] [place] [address] 09-17-2022 13:00-0400 Heart rate 68 /min Dr. Noreen Katz Work Phone: [facility] 09-17-2022 13:00-0400 Respiratory rate 18 /min Dr. Noreen Katz Work Phone: 1(547)115-752323 [address] 09-17-2022 13:00-0400 SaO2% (BldA) [Mass fraction] 100 % Dr. Noreen Katz Work Phone: 9(148)[phone] [place] [address] 09-17-2022 13:00-0400 Systolic blood pressure 124 mm[Hg] Dr. Noreen Katz Work Phone: [facility] 05-14-2022 07:53-0400 Body height 172.[address] Noreen Katz Work Phone: [facility] 05-14-2022 07:53-0400 Body mass index (BMI) [Ratio] 27.3 kg/m2 Dr. Noreen Katz Work Phone: [facility] 05-14-2022 07:53-0400 Body temperature 97.6 [degF] Dr. Noreen Katz Work Phone: [facility] 05-14-2022 07:53-0400 Body weight 81.[address] Noreen Katz Work Phone: [facility] 05-14-2022 07:53-0400 Diastolic blood pressure 63 mm[Hg] Dr. Noreen Katz Work Phone: [facility] 05-14-2022 07:53-0400 Heart rate 52 /min Dr. Noreen Katz Work Phone: [facility] 05-14-2022 07:53-0400 Respiratory rate 18 /min Dr. Noreen Katz Work Phone: [facility] 05-14-2022 07:53-0400 SaO2% (BldA) [Mass fraction] 98 % Dr. Noreen Katz Work Phone: [facility] 05-14-2022 07:53-0400 Systolic blood pressure 145 mm[Hg] Dr. Noreen Katz Work Phone: [facility] 04-02-2022 10:22-0500 Body height 167.[address] Noreen Katz Work Phone: [facility] 04-02-2022 10:22-0500 Body weight 82.[address] Noreen Katz Work Phone: [facility] 04-01-2022 08:45-0500 Body mass index (BMI) [Ratio] 29.3 kg/m2 Dr. Noreen Katz Work Phone: [facility] 03-26-2022 14:23-0500 Body mass index (BMI) [Ratio] 29.3 kg/m2 Dr. Noreen Katz Work Phone: [facility] 03-26-2022 14:23-0500 Body weight 82.[address] Noreen Katz Work Phone: [facility] 03-26-2022 14:23-0500 Diastolic blood pressure 66 mm[Hg] Dr. Noreen Katz Work Phone: [facility] 03-26-2022 14:23-0500 Heart rate 50 /min Dr. Noreen Katz Work Phone: [facility] 03-26-2022 14:23-0500 Respiratory rate 18 /min Dr. Noreen Katz Work Phone: [facility] 03-26-2022 14:23-0500 Systolic blood pressure 148 mm[Hg] Dr. Noreen Katz Work Phone: [facility] 05-21-2021 10:31-0400 Body height 167.[address] Noreen Katz Work Phone: [facility] Work Phone: Encounters Encounter Date Encounter Type Care Provider Facility Start: [facility] Start: 11-24-2024 End: 11-24-[address] Edmond Mo MD -[facility] Work Phone: Start: 11-24-2024 End: 11-24-[address] Noreen Katz MD Work Phone: -[facility] Start: 08-24-2024 End: 08-24-[address] Noreen Katz MD Work Phone: -Ultrasound [facility] Start: 08-24-2024 End: 08-24-2024 Patient encounter procedure [facility] -Ultrasound [facility] Work Phone: Start: 08-24-2024 End: 08-24-2024 ambulatory Noreen Katz Facility:[facility] Start: 2023 End: [address] Noreen Katz Work Phone: [facility] Work Phone: Start: 2023 End: [address] Noreen Katz Work Phone: [facility]-Physical Therapy Work Phone: Start: 03-18-2023 End: 03-18-[address] Noreen Katz Work Phone: [facility] Work Phone: Start: 03-10-[address] Noreen cohen Work Phone: [facility]-Physical Therapy Work Phone: Start: 03-09-2023 End: 03-09-[address] Noreen Katz Work Phone: [facility] Work Phone: Start: 03-09-2023 End: 03-09-[address] Noreen Katz Work Phone: [facility] Work Phone: Start: 02-23-2023 End: 02-23-[address] Noreen Katz Work Phone: [facility] Work Phone: Start: 01-07-2023 End: 01-07-[address] Noreen Katz Work Phone: [facility] Work Phone: Start: 01-07-2023 End: 01-07-[address] Noreen Katz Work Phone: [facility] Work Phone: Start: 01-03-2023 End: 01-03-2023 Emergency department patient visit Dr. Noreen Katz Work Phone: [facility]-Emergency Department Work Phone: Start: 09-17-2022 End: 09-17-[address] Noreen Katz Work Phone: [facility] Work Phone: Start: 06-03-2022 End: 06-03-[address] Noreen Katz Work Phone: [facility] Work Phone: Start: 06-03-2022 End: 06-03-[address] Noreen Katz Work Phone: [facility]-Sleep Lab Start: 05-26-2022 End: 05-26-[address] Noreen Katz Work Phone: [facility] Work Phone: Start: 05-26-2022 End: 05-26-[address] [facility]ore[facility] Katz [facility] Start: 05-14-2022 End: 05-14-[address] Noreen Katz Work Phone: [facility]-Pulmonary Medicine [facility] Start: 04-02-2022 End: 04-02-2022 Admission to same day surgery center Dr. Noreen Katz Work Phone: [facility]-Operations And Maintenance Technician/Special Procedures Start: 04-02-2022 End: 04-02-[address] Noreen Katz Work Phone: [facility] Work Phone: Start: 03-26-2022 End: 03-26-[address] Noreen Katz Work Phone: [facility] Work Phone: Start: 03-26-2022 End: 03-26-[address] Noreen Katz Work Phone: [facility]-Radiology, [facility] Start: 03-26-2022 End: 03-26-[address] Noreen Katz Work Phone: [facility] Start: 03-19-2022 Non-patient / Non-visit [facility] Katz [facility] Start: 06-19-2021 Non-patient / Non-visit Dr. Sangeeta Katz Work Phone: [facility] Start: 06-19-2021 End: 06-19-[address] Noreen Katz Work Phone: [facility]-Cardiovascular Services Start: 05-21-2021 End: 05-21-2021 Patient encounter procedure [facility], [facility] Procedures Date Procedure Procedure Detail Performing Clinician Start: 08-24-2024 Ultrasonography of t hyroid and parathyroid Dr. Noreen Katz MD Work Phone: Start: 03-09-2023 MRI of lumbar spine Dr. [...] Activity Detail Author Catheterization of left heart [facility] Patient Education ED Sciatica [facility] Work Phone: Patient referral [facility] Work Phone: Polysomnography [facility] Immunizations Immunization Date Immunization Notes Care Provider Fa cility 07-19-2019 tetanus toxoid, redu sherman diphtheria toxoid, and acellular pertussis vaccine, adsorbed [facility] Payers Date Payer Category Payer Medicare [id number] 2024 Self-pay [id number] 2024 Unknown [id number] 2016 Unknown [id number] Unknown [facility] PACKAGE PLAN [id number] Unknown [id number] Unknown [id number] Unknown [id number] Social History Date Type Detail Facility Start: 07-19-2019 End: 03-18-2023 Tobacco smoking status MOIS Unknown if ever smoked [facility] Start: 08-27-2017 Occasional [facility] Start: 08-27-2017 None [facility] Start: 07-19-2019 Spouse/ Signif icant Other [facility] Start: 1955 Sex Assigned At Male [facility] Start: 06-30-2023 Tobacco smoking status NHIS Ex-smoker (finding) [facility] Sex Male [facility] Medical Equipment Procedure Code Equipment Code Equipment Origin al Text Equipment Identifier Dates Surgical procedure on lumbar spine including any or all of laminectomy, discectomy, a Collagen haemostatic agent, non-antimicrobial [id number] FDA Start: 07-14-2023 Goals Date Patient Goal Desired Activity /State Mental Status Date Assessment Result Facility 01-03-2023 Cognitive function Level Of Cons ciousness Awake;Alert;Appropriate;Follow s Commands [facility] Work Phone: Clinical Notes 01-03-2023 to 11-24-2024 Note Date & Type Note Facility 11-24-2024 Progress note [facility] Services 08-24-2024 Radiology Diagnostic study note [facility] Imaging Services [address] [place], [place] [address] Head/Neck Soft Tissue MR#: [id number] Acct: [id number] Name: DAI REYES Rep #: [id number] : 1955 M 69 From: Harvey Anna MD PCP: Dr. Noreen Katz MD Status: REG CLI Study:Head/Neck Soft Tissue Date of Exam: 08/24/24 Exam# [id number] Ordering Dr: Michael Landis NP PROCEDURE: HEAD/NECK SOFT TISSUE 08/24/2024. Patient states he has had this lumps in childhood although recent fall caused to increase in size. REASON FOR EXAM: SCALP MASS TECHNIQUE: HEAD/NECK SOFT TISSUE COMPARISON: None FINDINGS: The palpable lump corresponds to a 1.5 cm 1.3 cm x 0.5 cm well-defined hypoechoic nodule just deep to the scalp. This may represent a hematoma. Targeted aspiration recommended for further evaluation. US/Head/Neck Soft Tissue IMPRESSION: The palpable lump corresponds to a 1.5 cm x 1.3 cm x 0.5 cm well-defined hypoechoic nodule just deep to the scalp. Tissue diagnosis recommended. Reading Location: [place] [address] CC: Michael Landis; Dr. Noreen Katz MD ~ Birdcage Assembler: Signed [facility] 03-23-2023 Discharge summary Note Date/Time 2023 3:32pm [facility] Physical Therapy [facility] [address] [place] [address]. [address] [place] [id number] / REHABILITATION SERVICES DISCHARGE SUMMARY MR#: [id number] Acct: [id number] Name: DAI REYES Rep #: [id number] : 1955 68 From: Cert. LIBRA ObrienT, OCS Referring Dr.: Dr. Noreen Katz MD Status: REG R Insurance: ANTH S[employer] PAY INSURANCE Discharge Summary D/C summary: [...] please feel free to call me at [phone]. Thank you for the referral of thispatient. Sincerely, Eric Buck PT, Cert MDT, OCS Balance/Gait/Functional tests Balance/Special Test Scores Oswestry Low Back Score: 3 Improvement % Improvement: 95 <Electronically signed by Eric Buck PT, Cert. T, OCS> 03/23/23 1359 CC: Dr. Noreen Katz MD ~ FERNY Signed [facility] Work Phone: 1(450) 245-135511-25-2023 Discharge summary Author Cash Marcum [facility] January 03, 2023 4:28pm Note Date/Time January 03, 2023 3:43pm [facility] Medical Records Department [address] [place] [address] Emergency Department Summary 01/03/23 MR#: [id number] Acct: [id number] Name: DAI REYES Rep #:[id number] : 1955 67 From: Cash Marcum DO PCP: Dr. Noreen Katz MD Status:REG ER Location: ED HPI History of Present Illness Chief Complaint: Other, Pain/Inj Narrative Narrative: 67-year-old male presenting with right gluteal pain that radiates down the posterior thigh. Symptoms started last evening. He denies any trauma. He states he was driving home from [place] and he noted that it is right [...] factors. No chest pain or shortnessof breath. [facility] Medical History PHILIPPE (dyspnea on exertion) Essential hypertension Hyperlipidemia Macular degeneration MARIO (obstructive sleep apnea) Unstable angina Home Medications vit C 250 mg-vit E 90 mg-zinc 40 mg-copper 1 gu-omnyel-bdpfla capsule (PreserVision AREDS-2) 2 tab PO DAILY [...] problems, contact your Primary Care Provider. Call [facility] ([phone]) or report to the closest Emergency Room. Call 911 if necessary. 01/03/23 1628 <Electronically signed by Cash Marcum DO> Cosigner Signature (if applicable): CC: Dr. Noreen Katz MD ~ Signed [facility] Work Phone: Evaluation noteNo assessment information available [facility] Work Phone: Evaluation note* Diagnosis Onset Date Resolution Status Chest pain acute Essential hypertension chron ic Hyperlipidemia chronic [facility] Work Phone: Evaluation note* Diagnosis Onset Date Resolution Status Chest pain acute Essential hypertension chron ic Hyperlipidemia chronic MARIO (obstructive sleep apnea) acute [facility] Work Phone: Evaluation note* Diagnosis Onset Date Resolution Status Lumbar radiculopathy noneact martin [facility] Work Phone: Evaluation note* Diagnosis Onset Date Resolution Status Lumbar radiculopathy noneact martin Lumbar canal stenosis acute Lumbar foraminal stenosis [place] [facility] Work Phone: Evaluation note* Diagnosis Onset Date Resolution Status Admit Date Neoplasm of uncertain behavi or of scalp acute November 24 1:03pm [facility] Work Phone: Progress note Author Edmond Mo [facility] Note Date/Time November 24, 2024 1 :42pm [facility] [address] [place] [address] OFFICE VISIT Date of Service: 11/24/24 MR#: [id number] Acct: [id number] Name: DAI REYES Rep #: [id number] : 1955 Provider: Dr. Jerome Mo MD Age/Sex: 69/M Location: [facility] Status: Signed <Statement entered by Edmond Mo MD - 11/25/24 14:50> Pt seen & evaluated w/TOBIAS. I personally interviewed & exam the pt. I was involved in all aspects of pt's orders, interpretation of results & treatment The scalp mass is quite mobile and superficial. I talked to the patient but therisks, benefits, and alternatives to removal and he elected to proceed. He understands the risks of bleeding, infection, damage to surrounding structures, wound healing complications/wound formation, and the risks of anesthesia. Intake Vital Signs 3 11/05/23 09:15 11/24/24 13:35 Height 5 ft 7 in 5 ft 7 in Weight: 178 lb BMI 27.8 BP 158/65 H Blood Pressure Location Rt brachial Position Sitting Respiration 18 Pulse 57 L Pulse Source Monitor Pulse Oximetry (%) 97 Oxygen Delivery Method room air Intake Visit Reasons: LUMP ON HEAD Chief Complaint: lump on head Is patient in pain?: No Allergies shellfish derived Allergy (Verified 11/24/24 13:34) Other Medications 3 ?Medication ?Instructions ?Recorded ?Confirmed ?Type hydrochlorothiazide 25 mg tablet 25 mg PO DAILY #90 ta bs 04/02/22 11/24/24 Rx Oral Appliace #1 ea 06/16/22 11/24/24 Rx mv-mn-folic 200 mcg-vit K 15 2 cap PO DAILY 04/14/23 1 History mcg-lutein 5 mg-zeaxanthin 1 mg capsule (PreserVision AREDS 2 Plus Multivit) amlodipine 10 mg tablet 10 mg PO QHS 06/30/23 History lisinopril 10 mg tablet 10 mg PO DAILY 06/30/2311/09 History multivitamin with iron-mineral 2 tab PO DAILY 06/30/23 11/24/24 History ranolazine 500 mg tablet,extended 500 mg PO BID #180 T ABLETS 02/12/24 11/24/24 Rx release,12 hr rosuvastatin 10 mg tablet 10 mg PO QDAY #90 tabs 05/2611/24/24 Rx Have you fallen in the past year?: No PFSH Medical History (Updated 11/24/24 @ 14:00 by BARBARA Emmanuel) Neoplasm of uncertain behavior of scalp Wears glasses Alcohol use DVT (deep venous [...] Type: coffee Number of servings: 3 HPI LUMP ON HEAD Details: Patient is a 69-year-old male presenting today for initial evaluation of left sided scalp lesion that is been present since childhood but steadily increase insize. He fell off a roof at age 7 and a laceration repaired, side. He states recently his more dresser has been mostly lump has been growing. He denies drainage, pain, fever, chills, night sweats, unintentional weight loss, lymph node swelling. Past medical history significant for MARIO, hypertension, hyperlipidemia. He is a former smoker, denies diabetes. He had an unprovoked left leg DVT and was treated with subcu Lovenox many years ago he states. He has never had a recurrence of clots and is not on any blood thinners chronically. ROS Details General: Denies fever, chills HEENT: Denies headaches, vision changes, sore throat Cardio: Denies chest pain, leg edema Pulmonary: Denies shortness of pain, cough, wheezing GI: Denies nausea, vomiting, diarrhea General General: Yes good health; No fatigue, fever(s) or weight loss HENMT HENMT: No rhinitis, sore throat/mouth sore, nasal congestion, contacts or glaucoma Endo Endocrine: No thyroid disease, polydipsia, heat intolerance, cold intolerance, hepatitis or excessive urine Skin Skin: No Bleeding, bruising, changing moles or suspicious lesion Musc Musculoskeletal: Yes back pain; No joint pain, joint stiffness, muscle weakness, osteoarthritis or Muscle aches/myalgia Neuro Neurological: No headache(s), No lightheadedness and No numbness Cardio Cardiovascular: Yes chest pain; No pacemaker, fatigue or shortness of breat with exertion Psych Psychiatric: No depression, claustrophobia or anxiety Resp Respiratory: No spitting up, shortness of breath, sleep apnea, asthma, emphysema, TB, Cough or Smoker Gastro Gastrointestinal: No diarrhea, constipation, blood in stool, nausea, vomiting orabdominal bloating Michael Hematologic: No anemia, No bleeding and No abnormal bleeding Genitourinary: No urinary frequency, blood in urine or incontinence Exam Details Afebrile/VSS. In no acute distress Left parietal scalp with 1.5 cm by 1.5 cm well-circumscribed mobile mass, soft, nontender. No pre or postauricular lymphadenopathy, submandibular or cervical lymphadenopathy . 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 Nodule is again visualized in 2013 MRI with and without contrast. Dr. Mo offered surgical excision in the OR and send off to pathology to determine etiology. He discussed risks of infection, injury from anesthesia, bleeding, risk of bloodclots, damage to surrounding structures, scarring, need for further surgeries. He wished to proceed to surgery. Plan Details Goals & Barriers: Goals Decrease spasm Decrease inflammation Improve sleep Decrease pain Barriers Stenosis Clinical Quality Measures Falls Risk Screening/Assistive Devices Have you fallen in the past year?: No 11/25/24 5401 <Electronically signed by Edmond Mo MD> Date _ Edmond Mo MD 11/24/24 9407<Electronically signed by Dakota JIMENEZ> Cosigner Signature: Date (if applicable) Dakota Uribe CC: ~ [facility] Work Phone: Reason for referral (narrative)No reason for referral [facility] Work Phone: Family History No [...] July 19, 2019 1 :36pm Power of Hand Spring Repairer Yes July 19, 2019 1:36pm Advance Directive Response Recorded Date/ Time Advance Directives on File No Wade hood 2022 10:22am Name of Medical Power of Hand Spring Repairer Sera April 02, 2022 10:22am Advance Directives Yes March 10:22am Living Will Yes April 02, 023 10:22am Power of Hand Spring Repairer Yes April 02, 2022 10:22am Advance Directive Response Recorded Date/ Time Advance Directives on File Faith hood 2022 11:22am Name of Medical Power of Hand Spring Repairer Sera April 02, 2022 11:22am Advance Directives Yes March 11:22am Living Will Yes April 02 023 11:22am Power of Hand Spring Repairer Yes April 02, 2022 11:22am Advance Directive Response Recorded Date/ Time Advance Directives Yes March 10:22am Living Will No January 03 023 3:44pm Power of Hand Spring Repairer No January 03, 2023 3:44pm Advance Directive Response Recorded Date/ Time Advance Directives Yes June 10, 2023 11:16am Chief Complaint and Reason for Visit Chief [...] radiculopathy Lumbar canal stenosis Lumbar foraminal stenosis Chief Complaint Admit Date SCALP MASS August 24, 2024 9:41 am Chief Complaint Admit Date SCALP MASS August 24, 2024 9:41 am LUMP ON HEAD November 24, 2024 1 :03pm Reason for Visit Admit Date Neoplasm of uncertain behavior of scalp November 24, 2024 1:03pm Summary Purpose Additional Source Comments Goals (unrecognized [...] Care Provider, Referrin g Provider Active Dr. Benedict Gandhi MD Attending [...] Provider, Referrin g Provider Active Myrtle Zaragoza MANAGER CASH, MANAGER CASH-C Attending Provider Active Team Status: Inactive Member Role Status Dates Dr. Noreen Katz MD Primary Care Provider, Attendin g Provider Active Team Status: Inactive Member Role Status Dates Dr. Noreen Katz MD Primary Care Provider Active Myrtle Zaragoza MANAGER CASH, MANAGER CASH-C Attending Provider, Referrin g Provider Active Team Status: Inactive Member Role Status Dates Dr. Noreen Katz MD Primary Care Provider, Referrin g Provider Active Rashawn Holder MANAGER CASH, MANAGER CASH-C Attending Provider Active Team Status: Inactive Member [...] Referring Provider Active Team Status: Active Member Role/Relationship Status Dates Dr. Noreen Katz MD Primary Care Provider Active Team Status: Inactive Member Role/Relationship Status Dates Dr. Noreen Katz MD Primary Care Provider Active Start: August 24, 2024 End: August 24, 2024 Michael Landis MANAGER CASH, MANAGER CASH-C Attending Provider Active Start: August 24, 2024 End: August 24, 2024 Michael Landis MANAGER CASH, MANAGER CASH-C Referring Provider Active Start: August 24, 2024 End: August 24, 2024 Team Status: Inactive Member Role/Relationship Status Dates Dr. Noreen Katz MD Primary care physician Active Start: August 24, 2024 End: August 24, 2024 Michael Landis MANAGER CASH, MANAGER CASH-C Attending physician Active Start: August 24, 2024 End: August 24, 2024 Michael Landis MANAGER CASH, MANAGER CASH-C Referring Provider Active Start: August 24, 2024 End: August 24, 2024 Team Status: Inactive Member Role/Relationship Status Dates Dr. Noreen Katz MD Referring Provider Active Start: November 24, 2024 End: November 24, 2024 Dr. Edmond Mo MD Attending physician Active Start: November 24, 2024 End: November 24, 2024 (unrecognized sect ion and content) No Status Records Found INFORMATION SOURCE (unrecogn ized section and content) DATE CREATED AUTHOR 12/14/2024 [facility] FOR RECORDS PERTAINING TO PATIENTS WHO ARE [...] BE BASED ON THE PRIMARY CLINICAL RECORDS. [facility]. provides no warranty or guarantee of the accuracy or completeness of information in this document.
--- NOTE | 2024-12-15 07:37 | HP.PCM_ITS ---
HPI - General HPI Narrative DAI REYES, is a 69 M who presents for left scalp lesion excision. 11/24/24 HPI: Patient is a 69-year-old male presenting today for initial evaluation of left sided scalp lesion that is been present since childhood but steadily increase in size. He fell off a roof at age 7 and a laceration repaired, side. He states recently his more dresser has been mostly lump has been growing. He denies drainage, pain, fever, chills, night sweats, unintentional weight loss, lymph node swelling. Past medical history significant for MARIO, hypertension, hyperlipidemia. He is a former smoker, denies diabetes. He had an unprovoked left leg DVT and was treated with subcu Lovenox many years ago he states. He has never had a recurrence of clots and is not on any blood thinners chronically. [facility] Medical History (Updated 12/07/24 @ 14:47 by Deborah Edwards) Hypertension Neoplasm of uncertain behavior of scalp Wears glasses Alcohol use DVT (deep venous thrombosis) Migraine headache Injury of head and neck Syncope Shortness of breath on exertion Former smoker Leg cramps History of pain when walking Cardiology follow-up encounter History of echocardiogram PHILIPPE (dyspnea on exertion) Hyperlipidemia Essential hypertension Unstable angina MARIO (obstructive sleep apnea) Macular degeneration Home Medications ?Medication ?Instructions ?Recorded ?Last Taken ?Type hydrochlorothiazide 25 mg tablet 25 mg PO DAILY #90 ta bs 04/02/22 12/14/24 Rx Oral Appliace #1 ea 06/16/22 Unknown Rx mv-mn-folic 200 mcg-vit K 15 2 cap PO DAILY 04/14/23 1 02/14/24 History mcg-lutein 5 mg-zeaxanthin 1 mg capsule (PreserVision AREDS 2 Plus Multivit) amlodipine 10 mg tablet 10 mg PO QHS 06/30/23 History lisinopril 10 mg tablet 10 mg PO DAILY 06/30/2307/03 History multivitamin with iron-mineral 2 tab PO DAILY 06/30/23 12/14/24 History ranolazine 500 mg tablet,extended 500 mg PO BID #180 T ABLETS 02/12/24 12/14/24 Rx release,12 hr rosuvastatin 10 mg tablet 10 mg PO QDAY #90 tabs 05/2612/14/24 Rx Allergy/AdvReac Type Severity Reaction Status Date / Time shellfish derived Allergy Other Verified 12/15/24 07:41 Family History Father Cancer Surgical History Hx of cataract surgery (11/02/23) History of back surgery (07/14/23) Hx of colonoscopy Hx of cardiac cath Social History Smoking Status: Former smoker how long ago did patient quit smokin years ago alcohol intake: current alcohol intake frequency: 0-2 drinks per day Alcohol type: beer substance use type: does not use caffeine: Yes Type: coffee Number of servings: 3 ROS ROS Narrative General: Denies fever, chills HEENT: Denies headaches, vision changes, sore throat Cardio: Denies chest pain, leg edema Pulmonary: Denies shortness of pain, cough, wheezing GI: Denies nausea, vomiting, diarrhea Physical Exam Narrative Afebrile/VSS. In no acute distress Left parietal scalp with 1.5 cm by 1.5 cm well-circumscribed mobile mass, soft, nontender. No pre or postauricular lymphadenopathy, submandibular or cervical lymphadenopathy Assessment & Plan Assessment/Plan (1) Neoplasm of uncertain behavior of scalp: PLAN: Excision today with Ancef for surgical ppx with same day discharge.
[2024-12-15] MEDS: Lactated Ringers 1,000 ML 15 ML IV (07:52)
--- NOTE | 2024-12-15 08:23 | PCM.PRE.AN2 ---
ASA Classification* ASA Classification ASA Classification: 2 (MARIO, GERD, hx angina (worked up by cardiology)) Assessment & Plan Anesthesia* Anesthesia Assessment Anesthesia Assessment: Discussed sedation and/or anesthesia options, risks, benefits, and alternatives with patient/parents/legal guardian/POA. Questions invited. The patient/parents/legal guardian/POA seems to understand and agrees to proceed with anesthesia plan. Reviewed the physical assessment, medical history, allergy history and patient home medications list prior to surgery/procedure/anesthetic and documented any changes. Performed airway and anesthesia risk assessments. Anesthesia Type Anesthesia Type: MAC History Source History Obtained from:: Patient and Chart Anesthesia Focused Assessment* Temperature: 97.2 F Pulse Rate: 50 Blood Pressure: 140/66 Respiratory Rate: 12 Pulse Ox: 100 Oxygen Delivery Method: Room Air Airway Assessment Mouth opens: >3 cm Mallampati Score: II Teeth Condition: Intact Neck Range of motion (ROM): Full ROM Labs Anesthesia Preop lab: CBC WBC, (4.4-11.0) 16.0 K/mm3 H 07/15/23, 06:21 RBC, (4.6-6.2) 4.54 M/mm3 L 07/15/23, 06:21 Hgb, (13.0-16.5) 14.2 g/dL 07/15/23, 06:21 Hct, (40-54) 41.5 % 07/15/23, 06:21 Plt Count, (150-450) 233 K/mm3 07/15/23, 06:21 CHEMISTRY Potassium, (3.5-5.1) 3.9 mmol/L 07/15/23, 06:21 Sodium, (136-145) 137 mmol/L 07/15/23, 06:21 Magnesium, (1.6-2.6) 2.4 mg/dL 07/02/23, 06:21 BUN, (7-18) 20 mg/dL H 07/15/23, 06:21 Creatinine, (0.70-1.30) 0.97 mg/dL 07/15/23, 06:21 Glucose, (74-106) 129 mg/dL H 07/15/23, 06:21 POC Glucose, (74-106) 151 mg/dL H 07/14/23, 06:05 TSH, (0.358-3.740) 1.860 uIU/mL 12/11/23, 10:49 COAG PT, (11.7-14.9) 13.4 SECONDS 03/26/22, 16:16 Pre-Assessment Diagnosis/Proposed Procedure Planned Operative Procedure(s): (L) Excision of lesion on head Anesthesia History 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 When Was Last Pacemaker Check QUESTION #4 FULL TEXT: You/Your Family Experience fever (hyperthermia) with Anesthesia Last Oral Intake Last Oral intake: Last Oral Intake NPO since 00:00 12/15/24 07:43 Meds taken in AM with sips of No 12/15/24 07:43 water? Meds patient instructed to take am of surgery PONV PONV - mold car pusher: PONV - mold car pusher Female No 12/07/24 14:45 HX of Motion Sickness No 12/07/24 14:45 HX of N/V After Surgery No 12/07/24 14:45 Non-Smoker Yes 12/07/24 14:45 Duration of Surgery greater No 12/07/24 14:45 than 60 minutes Number of Risk Factors 1 12/07/24 14:45 PONV Score Low Risk 12/07/24 14:45 Height & Weight Height & Weight: Anesthesia: Height & Weight Height 5 ft 7 in 12/15/24 07:43 Weight: 80 kg 12/15/24 07:43 Body Mass Index (BMI) 27.6 12/15/24 07:43 Respiratory Assessment Respiratory Assessment - mold car pusher: Respiratory Tract Infection Hx - mold car pusher Hx Respiratory Tract Infection No 12/07/24 14:45 STOP Sleep Apnea STOP Sleep Apnea - mold car pusher: STOP Sleep Apnea - mold car pusher Hx Hypertension Yes: CONTROLLED WITH MED 12/07/24 14:45 Hx Sleep Apnea Yes: MOUTH PIECE 12/07/24 14:45 CPAP No 12/07/24 14:45 BIPAP No 12/07/24 14:45 Do you snore loudly (louder than talking or can be heard Do you often feel tired/ fatigued/ sleepy during daytime? Has anyone observed you stop breathing during sleep? STOP Results Positive 12/07/24 14:45 QUESTION #5 FULL TEXT : Do you snore loudly (louder than talking or can be heard through closed doors)? 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 Specify any problems Hx of Preganancy in last 3 N/A 12/07/24 14:45 Months Nurse Filling Out Transfusion NBUCHER 12/07/24 14:45 & Questions: Date: 12/07/24 12/07/24 14:45 Time: 14:46 12/07/24 14:45 Patient unable to answer at this time (ie. confused, unrespo /Reproduction History /Reproductive History - mold car pusher: /Reproductive Hx- mold car pusher Hx Now No 12/07/24 14:45 Gestational Age (in weeks): EDC: Hx Hx Para Hx Section SAB No 12/07/24 14:45 Does the father of the baby or his family experience fever w Father of the baby Malignant Hypertension history comment Active Medications Active Medications: Current Medications Generic Name Dose Route Start Last Admin Trade Name Freq PRN Reason Stop Dose Admin Cefazolin Sodium 2 gm/ Sodium 110 mls @ 200 mls/hr 12/15/24 08:55 Chloride IV 12/15/24 09:27 INTRAOP ONE Lactated Ringer's 1,000 mls @ 15 mls/hr 12/15/24 07:15 12/15/24 07:52 IV 15 mls/hr .Q48H MARIALUISA Administration PFSH Medical History (Updated 12/07/24 @ 14:47 by Deborah Edwards) Hypertension Neoplasm of uncertain behavior of scalp Wears glasses Alcohol use DVT (deep venous thrombosis) Migraine headache Injury of head and neck Syncope Shortness of breath on exertion Former smoker Leg cramps History of pain when walking Cardiology follow-up encounter History of echocardiogram PHILIPPE (dyspnea on exertion) Hyperlipidemia Essential hypertension Unstable angina MARIO (obstructive sleep apnea) Macular degeneration Home Medications ?Medication ?Instructions ?Recorded ?Last Taken ?Type hydrochlorothiazide 25 mg tablet 25 mg PO DAILY #90 tabs 04/02/22 12/14/24 Rx Oral Appliace #1 ea 06/16/22 Unknown Rx mv-mn-folic 200 mcg-vit K 15 2 cap PO DAILY 04/14/23 12/14/24 History mcg-lutein 5 mg-zeaxanthin 1 mg capsule (PreserVision AREDS 2 Plus Multivit) amlodipine 10 mg tablet 10 mg PO QHS 06/30/23 12/14/24 History lisinopril 10 mg tablet 10 mg PO DAILY 06/30/23 12/14/24 History multivitamin with iron-mineral 2 tab PO DAILY 06/30/23 12/14/24 History ranolazine 500 mg tablet,extended 500 mg PO BID #180 TABLETS 02/12/24 12/14/24 Rx release,12 hr rosuvastatin 10 mg tablet 10 mg PO QDAY #90 tabs 05/26/24 12/14/24 Rx Allergy/AdvReac Type Severity Reaction Status Date / Time shellfish derived Allergy Other Verified 12/15/24 07:41 Family History Father Cancer Surgical History Hx of cataract surgery (11/02/23) History of back surgery (07/14/23) Hx of colonoscopy Hx of cardiac cath Social History Smoking Status: Former smoker how long ago did patient quit smokin years ago alcohol intake: current alcohol intake frequency: 0-2 drinks per day Alcohol type: beer substance use type: does not use caffeine: Yes Type: coffee Number of servings: 3 Review of Systems (Anesthesia) ROS Narrative System reviewed and no additional complaints, except as documented. Physical Exam Const alert, oriented x3 and average body habitus Resp normal respiratory effort, normal air movement and clear to auscultation bilaterally Cardio regular rate, regular rhythm, no murmurs and diaphoretic
[2024-12-15] MEDS: Midazolam 2 MG/2 ML Syringe IV (08:53)
[2024-12-15] MEDS: Lactated Ringers 1,000 ML 1000 ML IV (08:53)
[2024-12-15] MEDS: fentaNYL 100 MCG/2 ML Ampul IV (08:55)
[2024-12-15] MEDS: Cefazolin 1 GM/5 ML Vial 2 GM IV (08:55)
[2024-12-15] MEDS: Lidocaine 1% (5 ml sdv) 5 ML Vial IV (08:55)
--- NOTE | 2024-12-15 09:00 | LES_PTH ---
PATIENT: DAI REYES LOC: [facility] [place]#:[id number] AGE/SX: 69/M ROOM: RE12/15/[address]: Dr. Edmond Mo MD : 1955 BED: DIS: 12/15/2024 SPEC #: [id number] RECD: 12/15/24 09:44 STATUS: LAST REYasmin #: [id number] SHIRA: 12/15/24 09:[address]: Edmond Mo DEPT: SURGICAL PATHOLOGY RECD BY: Javid Knight ENTERED: 12/15/24 11:41 SP TYPE: Lesion OTHR DR: Dr. Bienvenido Wall MD Tissues: A - Head, NOS Procedures: Surgery Specimen Level III HEADER OPERATION: Excision of lesion on head PRE-OP DIAGNOSIS: Neoplasm of uncertain behavior of scalp TISSUE SUBMITTED: A- Left head lesion MICROSCOPIC DIAGNOSIS A. Left head, lesion, excision: - Trichilemmal (pilar) cyst, amorphous necrotic debris. MICROSCOPIC DESCRIPTION Slides are reviewed. GROSS DESCRIPTION A. Received in formalin labeled with the patient's name and date of . Designated as left head lesion is a 1.8 x 1.3 x 0.9 cm otero-white to red disrupted cyst expelling yellow to brown grumous material and surfaced by a 1.3 x 0.6 cm otero-pink to red, irregular, somewhat lobulated skin ellipse, devoid of orientation. Entirely submitted in 2 cassettes. CA [id number]
[2024-12-15] MEDS: Lidocaine 1% /Epi 1:100 (20ml) 20 ML Vial (09:11)
--- NOTE | 2024-12-15 09:30 | PCM.POST.ANE ---
Anesthesia: Postop Eval I Current Vital Signs Temperature: 98.7 F Pulse Rate: 60 Blood Pressure: 113/52 Respiratory Rate: 20 Pulse Ox: 98 Oxygen Delivery Method: Room Air Assessment Airway patent: Yes Spontaneous unlabored respirations: Yes Mental status: Awake and Calm nausea: No Vomiting: No Anesthesia Complication: No Fluid Hydration Crystalloid volume administer (ml): 600 Total IV fluid infused: 600 Progress Note Anesthesia document: Postop Eval 1 completed: Yes
--- NOTE | 2024-12-15 09:51 | PCM.OPRPT ---
Operative Report (Standard) Operative Information Date of Procedure: 12/15/24 Pre-Operative Diagnosis: Left posterior scalp cyst Post-Operative Diagnosis: Same Surgery/Procedure Performed: Excision left posterior scalp cyst, 2 x 1 cm architectural superintendent: Yes Sccm Administrator: Dakota Uribe Tasks completed by physician assistant surgery: Closing, Dissecting tissue and Removing tissue Type of Anesthesia: Local MAC (10 cc of 1% lidocaine with 1-200,000 epinephrine) RN Documented Start/Stop Times: Operation Date: 12/15/24 09:00 Case Time Into Pre-Op 12/15/24 07:06 Out of Pre-Op 12/15/24 08:52 Anesthesia Start 12/15/24 08:53 Into Room 12/15/24 08:53 Procedure Start 12/15/24 09:13 Procedure End 12/15/24 09:19 Anesthesia End 12/15/24 09:25 Out of Room 12/15/24 09:25 Into Recovery 12/15/24 09:27 Into Phase II Recovery 12/15/24 09:42 Out of Recovery 12/15/24 09:42 Procedure Start Time: 09:13 Procedure Stop Time: 09:19 Select all DRAINS/GRAFTS/IMPLANTS that apply: None Estimated Blood Loss: 5 cc Specimen collected: Yes Description of specimen(s) removed: Scalp cyst Description of surgery: Indications: Patient is a delightful 6-year-old male with a left scalp cyst in the parietal region. It is mobile and subcutaneous. Presents today for excision. Understands risks, benefits, and alternatives to procedure and elected to proceed. Procedure details: Patient was correctly identified in preoperative holding and I marked the cyst with his and the patient in agreement. He was came back to the operating room he was sedated. He was prepped and draped in sterile fashion and 10 cc of 1% lidocaine with 1-200,000 epinephrine was injected. It was given time to take effect. 15 blade scalpel was used to make a direct incision over the cyst and careful dissection with tenotomy scissors was performed to remove the cyst in 1 piece which measured 1 x 2 cm. The wound was irrigated with copious months normal saline. Hemostasis was obtained with Bovie electrocautery and the wound was closed with kong. Patient tolerated procedure well. Bacitracin was applied. Postoperative plan: Follow-up in 1 week for wound check. Follow-up in 2 weeks for staple removal. Surgical Findings: 1 x 2 cm subcutaneous mass consistent with an epidermal inclusion cyst or Pilar cyst Complications Complications: No
--- NOTE | 2024-12-15 11:30 | POSTOPAN2_ITS ---
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 POT [email or web address] Spontaneous unlabored Yes 12/15/24 09:32 TIN POT [email or web address].[email or web address] respirations Mental status Awake,Calm 12/15/24 09:32 TIN POT [email or web address].[email or web address] nausea No 12/15/24 09:32 TIN POT [email or web address].[email or web address] Vomiting No 12/15/24 09:32 TIN POT [email or web address].[email or web address] Anesthesia Postop Eval I: Fluid Summary Crystalloid volume administer 600 12/15/24 09:32 TIN POT [email or web address].[email or web address] (ml) Colloids volume administered ( ml) Blood Product volume administered (ml) Total IV fluid infused 600 12/15/24 09:32 TIN POT [email or web address].[email or web address] Anesthesia Postop Eval I: Summary Notes Anesthesia Complication No 12/15/24 09:32 TIN POT OPERATOR.[email or web address] Anesthesia Complication Comment: Post-operative progress note Anesthesia: Postop Eval II Evaluation Mental status: Awake Pain Level: 0 nausea: No Vomiting: No Complications Anesthesia Complication: No
--- NOTE | 2024-12-15 11:30 | PCM.POSTANE2 ---
Anesthesia Postop Eval I Sum Postop Eval Completion status Anesthesia document: Postop Eval 1 completed: Yes Anesthesia Postop Eval I Summary Anesthesia Postop Eval I Summary: Anesthesia Postop Eval I: Assessment Summary Airway patent Yes 12/15/24 09:32 VIDEO GAMES [email or web address] Spontaneous unlabored Yes 12/15/24 09:32 VIDEO GAMES [email or web address] respirations Mental status Awake,Calm 12/15/24 09:32 VIDEO GAMES [email or web address] nausea No 12/15/24 09:32 VIDEO GAMES [email or web address].[email or web address] Vomiting No 12/15/24 09:32 VIDEO GAMES [email or web address] Anesthesia Postop Eval I: Fluid Summary Crystalloid volume administer 600 12/15/24 09:32 VIDEO GAMES [email or web address] (ml) Colloids volume administered ( ml) Blood Product volume administered (ml) Total IV fluid infused 600 12/15/24 09:32 VIDEO GAMES [email or web address] Anesthesia Postop Eval I: Summary Notes Anesthesia Complication No 12/15/24 09:32 VIDEO GAMES [email or web address] Anesthesia Complication Comment: Post-operative progress note Anesthesia: Postop Eval II Evaluation Mental status: Awake Pain Level: 0 nausea: No Vomiting: No Complications Anesthesia Complication: No
== END 2024-12-15 10:33 | disposition home or self-care (01) ==
LOC: SDC 06:53 → AC 06:58
PROVIDERS: PCP Family Medicine; Referring Provider Surgery Plastic and Reconstructive Surgery; Visit Provider Surgery Plastic and Reconstructive Surgery
PROC: (CPT 11422; principal; 2024-12-15 08:45)
DX: L72.12 Trichodermal cyst (principal); I10 Essential (primary) hypertension; E78.5 Hyperlipidemia, unspecified; Z86.718 Personal history of other venous thrombosis and embolism; Z87.891 Personal history of nicotine dependence; Z79.899 Other long term (current) drug therapy; K21.9 Gastro-esophageal reflux disease without esophagitis; Z85.828 Personal history of other malignant neoplasm of skin
CPT/HCPCS: 11422; 00300; 88304; 88305

== ENCOUNTER 2025-01-16 16:19 | Outpatient (CLI) | payer MEDICARE, OTHER, SELFPAY ==
[2025-01-16 17:50] LABS: Hematocrit 38.7 % (40-54); Hemoglobin 13.4 g/dL (13.0-16.5); Immature Granulocytes Count 0.030 X10^3/uL (0.0-0.0); Mean Corp Hgb Conc 34.6 g/dL (32-36); Mean Corpuscular Volume 90.6 fL (80-94); Mean Platelet Vol. 11.4 fl (6.2-12.0); NRBC Flagged by Analyzer 0 % (0-5); Platelet Count 241 K/mm3 (150-450); RBC Distribution Width CV 13.1 % (11.6-14.6); RBC Distribution Width SD 43.1 fl (35.1-43.9); Red Blood Count 4.27 M/mm3 (4.6-6.2); White Blood Count 7.3 K/mm3 (4.4-11.0)
[2025-01-16 18:38] LABS: AST(SGOT) 26 U/L (<=37); Alanine Aminotransfer ALT/SGPT 25 U/L (<=46); Albumin, Serum 4.6 g/dL (3.4-4.8); Alkaline Phosphatase 57 U/L (40-129); Anion Gap 12 (5-15); BUN 10 mg/dL (4-19); BUN/Creat Ratio 12.4 RATIO (10-20); Calcium,Total 9.3 mg/dL (7.6-11.0); Carbon Dioxide 25.2 mmol/L (21.0-32.0); Chloride 102 mmol/L (98-108); Ferritin 164 ng/mL (37-417); Globulin 2.9 g/dL (2.2-4.2); Glucose 98 mg/dL (70-99); Magnesium 2.4 mg/dL (1.5-2.2); Potassium 4.0 mmol/L (3.3-5.1)
[2025-01-16 18:39] LABS: Creatinine, Urine (random) 31.40 mg/dL (39.00-259.00); Microalbumin,Random Urine < 12.0 mg/L (<20 mg/L)
== END 2025-01-16 23:59 | disposition home or self-care (01) ==
LOC: MTLAB 16:20
PROVIDERS: PCP Family Medicine; Referring Provider Family Medicine; Visit Provider Family Medicine
DX: I10 Essential (primary) hypertension (principal); R25.2 Cramp and spasm; R79.9 Abnormal finding of blood chemistry, unspecified
CPT/HCPCS: 36415; 80053; 82043; 82570; 82728; 83735; 84443; 85025